=== PATIENT | female | born 1995 | race Caucasian/White ===

== ENCOUNTER → 2016-03-12 | Outpatient (CLI) | payer OTHER ==
--- NOTE | 2016-03-12 12:29 | US ---
EXAMINATION TYPE: US kidneys/renal and bladder DATE OF EXAM: 03/12/2016 11:18 AM COMPARISON: None CLINICAL HISTORY: 20-year-old female Hypertrophy of kidney. Patient states history of back pain that has now resolved. TECHNIQUE: Multiple sonographic images of the kidneys and bladder were obtained. FINDINGS: TECHNOLOGIST NOTES: Patient very gassy EXAM MEASUREMENTS: Right Kidney: 10.0 x 4.8 x 4.9 cm Left Kidney: 11.7 x 5.7 x 5.0 cm The lower pole of both kidneys is obscured by all gas shadowing. There is no hydronephrosis seen on e ither side. Incidentally, there is echogenic appearance to the liver. No gross abnormality of the urine distended bladder. Neither ureteral jet is visualized during the co urse of the exam. IMPRESSION: 1. Renal measurements as above, fall within normal limits. 2. No hydronephrosis. 3. Incidental hepatic steatosis. Correlate with LFTs, lipid profile, and patient risk factors.
== END | disposition home or self-care (01) ==
LOC: RADUSWWP 11:00
PROVIDERS: ATTEND Pediatrics Adolescent Medicine
DX: N28.81 Hypertrophy of kidney (principal)
CPT/HCPCS: 76770

== ENCOUNTER 2016-05-11 20:26 | Emergency (ER) | payer OTHER ==
[2016-05-11 20:46] VITALS: BP 139/80; RESP 18
[2016-05-11] MEDS ORDERED: IBUPROFEN 400 MG TAB PO STA (21:15)
--- NOTE | 2016-05-11 21:20 | ED ---
Lower Extremity Injury HPI - General Chief Complaint: Extremity Injury, Lower Stated Complaint: left foot injury Time Seen by Provider: 05/11/16 21:10 Source: patient Mode of arrival: wheelchair Limitations: no limitations - History of Present Illness Initial Comments: This patient is a 20-year-old woman with history of osteogenesis and also left foot drop, who complains that as she was walking today she rolled her right ankle and experienced pain to the lateral aspect of her left foot. The patient states that when the pain did not resolve they decided to be evaluated here. She has reportedly broken over 20 bones. The patient denies loss sensation or motor function. States the pain is moderate, worse with attempting to bear weight. She indicates the lateral aspect of her left foot. No other injuries today MD Complaint: foot injury -: hour(s) Injury: Foot: Right Type of Injury: inversion Place: home Severity: moderate Improves With: nothing Worsens With: weight bearing Context: walking Associated Symptoms: swelling, able to partially bear weight - Related Data Home Medications Medication Instructions Recorded Confirmed Albuterol Inhaler [Ventolin Hfa 2 puff INHALATION RT-Q4H PRN 02/19/16 05/11/16 Inhaler] Albuterol Nebulized [Ventolin 2.5 mg INHALATION RT-QID PRN 02/19/16 05/11/16 Nebulized] Aspirin 81 mg PO DAILY 02/19/16 05/11/16 Docusate [Colace] 100 mg PO BID 02/19/16 05/11/16 Fluticasone Nasal [place] [Flonase 1 spray EA NOSTRIL BID 02/19/16 05/11/16 Nasal [place]] Gabapentin [Neurontin] 300 mg PO BID 02/19/16 05/11/16 Insulin Glulisine [Apidra Solostar] See Protocol SQ AC-TID 02/19/16 05/11/16 Ipratropium Nebulized [Atrovent 0.5 mg INHALATION RT-QID PRN 02/19/16 05/11/16 Nebulized] LORazepam [Ativan] 1 mg PO TID PRN 02/19/16 05/11/16 Lacosamide [Vimpat] 200 mg PO BID 02/19/16 05/11/16 Loratadine [Claritin] 10 mg PO DAILY 02/19/16 05/11/16 Methylphenidate HCl [Concerta] 54 mg PO DAILY 02/19/16 05/11/16 Norelgestromin/Ethin.estradiol 1 patch TRANSDERM TH 02/19/16 05/11/16 [Xulane Patch] Omeprazole [PriLOSEC] 20 mg PO AC-BRKFST 02/19/16 05/11/16 Polyethylene Glycol 3350 [Miralax] 17 gm PO BID PRN 02/19/16 05/11/16 clonazePAM [Clonazepam] 2 mg PO DAILY PRN 02/19/16 05/11/16 lamoTRIgine [LaMICtal] 150 mg PO BID 02/19/16 05/11/16 Ipratropium [place] [Atrovent Hfa] 2 puff INHALATION RT-QID 05/11/16 05/11/16 Levothyroxine Sodium [Synthroid] 175 mcg PO DAILY 05/11/16 05/11/16 risperiDONE [RisperDAL] 2 mg PO BID 05/11/16 05/11/16 Previous Rx's Medication Instructions Recorded Ibuprofen [Motrin] 800 mg PO Q8HR PRN #20 tab 05/11/16 traMADol HCl [Ultram] 50 mg PO Q6H PRN #20 tab 05/11/16 Allergies Allergy/AdvReac Type Severity Reaction Status Date / Time cefuroxime Allergy Unknown Verified 05/11/16 21:16 hydromorphone [From Dilaudid] Allergy Unknown Verified 05/11/16 21:16 latex Allergy Unknown Verified 05/11/16 21:16 levetiracetam [From Keppra] Allergy Unknown Verified 05/11/16 21:16 metoclopramide [From Reglan] Allergy Unknown Verified 05/11/16 21:16 nifedipine [From Procardia] Allergy Unknown Verified 05/11/16 21:16 pentamidine isethionate Allergy Unknown Verified 05/11/16 21:16 pregabalin [From Lyrica] Allergy Unknown Verified 05/11/16 21:16 Review of Systems ROS Statement: Those systems with pertinent positive or pertinent negative responses have been documented in the HPI. ROS Other: All systems not noted in ROS Statement are negative. Constitutional: Denies: fever, chills, weakness Musculoskeletal: Reports: as per HPI, joint swelling, arthralgia Skin: Denies: lesions Neurological: Denies: weakness, numbness, paresthesias Past Medical History Past Medical History: Asthma, Diabetes Mellitus, Seizure Disorder, Thyroid Disorder Additional Past Medical History / Comment(s): glioblastomamultiform stage 4 History of Any Multi-Drug Resistant Organisms: None Reported Past Surgical History: Adenoidectomy, Appendectomy, Tonsillectomy Additional Past Surgical History / Comment(s): craniotomy, brovaic Past Psychological History: No Psychological Hx Reported Smoking Status: Never smoker Past Alcohol Use History: None Reported Past Drug Use History: None Reported General Exam Limitations: no limitations General appearance: alert, in no apparent distress, obese Cardiovascular Exam: Present: other (Pedal pulses normal. Capillary refill normal.) Extremities exam: Present: tenderness, normal capillary refill, other (There is tenderness and a small amount of swelling over the lateral aspect of the left foot, particularly the fifth metatarsal. No palpable deformity.) Neurological exam: Present: alert. Absent: motor sensory deficit Skin exam: Present: warm, dry, intact, normal color. Absent: rash Course Vital Signs 05/11/16 05/11/16 20:40 22:45 Temperature 100.6 F H 98.5 F Pulse Rate 90 89 Respiratory 18 18 Rate Blood Pressure 139/80 O2 Sat by Pulse 98 99 Oximetry Procedures - Orthopedic Splinting/Casting Injury #1 Side: left Lower Extremity Injury Location: foot Lower Extremity Immobilizer: posterior splint Medical Decision Making - Lab Data Lab Results 05/11/16 Range/Units 20:40 Urine HCG, Qual Not Detected (Not Detectd) Disposition Clinical Impression: Fracture of fifth metatarsal bone Disposition: HOME SELF-CARE Condition: Fair Instructions: Foot Fracture in Adults (ED) Prescriptions: Ibuprofen [Motrin] 800 mg PO Q8HR PRN #20 tab PRN Reason: Pain traMADol HCl [Ultram] 50 mg PO Q6H PRN #20 tab PRN Reason: Pain Referrals: Raysa Landrum MD [Primary Care Provider] - 1-2 days Willi Watts MD [STAFF PHYSICIAN] - 1-2 days
--- NOTE | 2016-05-11 21:47 | XR ---
EXAMINATION TYPE: XR foot complete LT DATE OF EXAM: 05/11/2016 9:40 PM COMPARISON: NONE HISTORY: Foot pain TECHNIQUE: 3 views FINDINGS: There is evidence of nondisplaced transverse fracture of the head of the fifth metatarsal. There is no dislocation. IMPRESSION: Nondisplaced fracture distal fifth metatarsal.
[2016-05-11 22:46] VITALS: PULSE 89; TEMP 98.5
== END 2016-05-11 22:46 | disposition home or self-care (01) ==
LOC: EC 20:26
DX: S92.355A Nondisplaced fracture of fifth metatarsal bone, left foot, initial encounter for closed fracture (principal); J45.909 Unspecified asthma, uncomplicated; E11.9 Type 2 diabetes mellitus without complications; G40.909 Epilepsy, unspecified, not intractable, without status epilepticus; E07.9 Disorder of thyroid, unspecified; Z79.82 Long term (current) use of aspirin; Z79.4 Long term (current) use of insulin; Z79.899 Other long term (current) drug therapy; Z88.8 Allergy status to other drugs, medicaments and biological substances; Z88.5 Allergy status to narcotic agent; Z91.040 Latex allergy status; Z88.1 Allergy status to other antibiotic agents; X58.XXXA Exposure to other specified factors, initial encounter; Y93.01 Activity, walking, marching and hiking
CPT/HCPCS: 29515; 81025; 99283

== ENCOUNTER 2016-05-23 23:01 | Emergency (ER) | payer OTHER ==
[2016-05-23] MEDS ORDERED: IBUPROFEN 400 MG TAB PO STA (23:39)
--- NOTE | 2016-05-24 00:13 | XR ---
EXAM: XR Left Shoulder Complete, 2 or More Views. CLINICAL HISTORY: Reason: trauma TECHNIQUE: Two or more views of the left shoulder. COMPARISON: No relevant prior studies available. FINDINGS: Bones/joints: Unremarkable. No acute fracture. No dislocation. Soft tissues: Unremarkable. IMPRESSION: No acute abnormality
--- NOTE | 2016-05-24 01:01 | ED ---
Upper Extremity HPI - General Chief Complaint: Extremity Injury, Upper Stated Complaint: poss collar bone injury Time Seen by Provider: 05/23/16 23:16 Source: patient, family Mode of arrival: ambulatory Limitations: no limitations - History of Present Illness Initial Comments: This patient is a 20-year-old woman with history of osteogenesis imperfecta imperfecta, who presents with pain to her left shoulder after she had a trip and fall injury earlier. The patient does not have any obvious deformity, but states she is still having pain despite trying some ice. Pain is constant, aching, moderate and worse with moving the left arm, better with remaining still. No other injuries in the fall MD Complaint: Injury to:: left -: hour(s) Other Extremity Injury: Shoulder: Left Other Injuries: none Handedness: right Place: home Improves With: none Worsens With: movement of extremity Context: fall Associated Symptoms: denies other symptoms - Related Data Home Medications Medication Instructions Recorded Confirmed Albuterol Inhaler [Ventolin Hfa 2 puff INHALATION RT-Q4H PRN 02/19/16 05/23/16 Inhaler] Albuterol Nebulized [Ventolin 2.5 mg INHALATION RT-QID PRN 02/19/16 05/23/16 Nebulized] Aspirin 81 mg PO DAILY 02/19/16 05/23/16 Docusate [Colace] 100 mg PO BID 02/19/16 05/23/16 Fluticasone Nasal [place] [Flonase 1 spray EA NOSTRIL BID 02/19/16 05/23/16 Nasal [place]] Gabapentin [Neurontin] 300 mg PO BID 02/19/16 05/23/16 Insulin Glulisine [Apidra Solostar] See Protocol SQ AC-TID 02/19/16 05/23/16 Ipratropium Nebulized [Atrovent 0.5 mg INHALATION RT-QID PRN 02/19/16 05/23/16 Nebulized] LORazepam [Ativan] 1 mg PO TID PRN 02/19/16 05/23/16 Lacosamide [Vimpat] 200 mg PO BID 02/19/16 05/23/16 Loratadine [Claritin] 10 mg PO DAILY 02/19/16 05/23/16 Methylphenidate HCl [Concerta] 54 mg PO DAILY 02/19/16 05/23/16 Norelgestromin/Ethin.estradiol 1 patch TRANSDERM TH 02/19/16 05/23/16 [Xulane Patch] Omeprazole [PriLOSEC] 20 mg PO AC-BRKFST 02/19/16 05/23/16 Polyethylene Glycol 3350 [Miralax] 17 gm PO BID PRN 02/19/16 05/23/16 clonazePAM [Clonazepam] 2 mg PO DAILY PRN 02/19/16 05/23/16 lamoTRIgine [LaMICtal] 150 mg PO BID 02/19/16 05/23/16 Ipratropium [place] [Atrovent Hfa] 2 puff INHALATION RT-QID 05/11/16 05/23/16 Levothyroxine Sodium [Synthroid] 175 mcg PO DAILY 05/11/16 05/23/16 risperiDONE [RisperDAL] 2 mg PO BID 05/11/16 05/23/16 Previous Rx's Medication Instructions Recorded Ibuprofen [Motrin] 800 mg PO Q8HR PRN #20 tab 05/11/16 traMADol HCl [Ultram] 50 mg PO Q6H PRN #20 tab 05/11/16 Allergies Allergy/AdvReac Type Severity Reaction Status Date / Time cefuroxime Allergy Unknown Verified 05/23/16 23:09 hydromorphone [From Dilaudid] Allergy Unknown Verified 05/23/16 23:09 latex Allergy Unknown Verified 05/23/16 23:09 levetiracetam [From Keppra] Allergy Unknown Verified 05/23/16 23:09 metoclopramide [From Reglan] Allergy Unknown Verified 05/23/16 23:09 nifedipine [From Procardia] Allergy Unknown Verified 05/23/16 23:09 pentamidine isethionate Allergy Unknown Verified 05/23/16 23:09 pregabalin [From Lyrica] Allergy Unknown Verified 05/23/16 23:09 Review of Systems ROS Statement: Those systems with pertinent positive or pertinent negative responses have been documented in the HPI. ROS Other: All systems not noted in ROS Statement are negative. Constitutional: Denies: weakness Respiratory: Denies: cough, dyspnea Cardiovascular: Denies: chest pain Gastrointestinal: Denies: abdominal pain Musculoskeletal: Reports: as per HPI, joint swelling. Denies: back pain Skin: Denies: lesions Neurological: Denies: headache, weakness, numbness Past Medical History Past Medical History: Asthma, Diabetes Mellitus, Seizure Disorder, Thyroid Disorder Additional Past Medical History / Comment(s): glioblastomamultiform stage 4 History of Any Multi-Drug Resistant Organisms: None Reported Past Surgical History: Adenoidectomy, Appendectomy, Tonsillectomy Additional Past Surgical History / Comment(s): craniotomy, brovaic Past Psychological History: No Psychological Hx Reported Smoking Status: Never smoker Past Alcohol Use History: None Reported Past Drug Use History: None Reported General Exam Limitations: no limitations General appearance: alert, in no apparent distress Head exam: Present: atraumatic, normocephalic Neck exam: Present: normal inspection, full ROM. Absent: tenderness Respiratory exam: Present: normal lung sounds bilaterally. Absent: respiratory distress, wheezes, rales, rhonchi Cardiovascular Exam: Present: regular rate, normal rhythm, normal heart sounds, other ((O pulse is normal and strength good capillary refill) Extremities exam: Present: normal inspection, full ROM, tenderness (Tenderness over the distal left clavicle no obvious deformity, no swelling.), normal capillary refill Back exam: Absent: CVA tenderness (R), CVA tenderness (L), vertebral tenderness Skin exam: Present: warm, dry, intact, normal color. Absent: rash Course Vital Signs 05/23/16 05/24/16 23:06 01:15 Temperature 97.6 F 97.4 F L Pulse Rate 78 92 Respiratory 20 18 Rate Blood Pressure 148/81 118/60 O2 Sat by Pulse 97 95 Oximetry Disposition Clinical Impression: Shoulder injury Disposition: HOME SELF-CARE Condition: Good Instructions: Shoulder Sprain (ED) Referrals: Raysa Landrum MD [Primary Care Provider] - 1-2 days
[2016-05-24 01:16] VITALS: BP 118/60; PULSE 92; RESP 18; TEMP 97.4
== END 2016-05-24 01:16 | disposition home or self-care (01) ==
LOC: EC 23:01
DX: S49.92XA Unspecified injury of left shoulder and upper arm, initial encounter (principal); W01.0XXA Fall on same level from slipping, tripping and stumbling without subsequent striking against object, initial encounter; Q78.0 Osteogenesis imperfecta; E11.9 Type 2 diabetes mellitus without complications; G40.909 Epilepsy, unspecified, not intractable, without status epilepticus; J45.909 Unspecified asthma, uncomplicated; E07.9 Disorder of thyroid, unspecified; Z79.82 Long term (current) use of aspirin; Z79.4 Long term (current) use of insulin; Z79.51 Long term (current) use of inhaled steroids; Z79.899 Other long term (current) drug therapy; Z88.1 Allergy status to other antibiotic agents; Z88.5 Allergy status to narcotic agent; Z88.8 Allergy status to other drugs, medicaments and biological substances; Z91.040 Latex allergy status
CPT/HCPCS: 99283

== ENCOUNTER 2016-07-11 23:45 | Emergency (ER) | payer OTHER ==
[2016-07-11 23:57] VITALS: BP 138/97; PULSE 65; RESP 18; TEMP 97.7
--- NOTE | 2016-07-12 00:58 | ED ---
General Adult HPI - General Chief complaint: Skin/Abscess/Foreign Body Stated complaint: ingrown toenail Time Seen by Provider: 07/12/16 00:03 Source: patient, family, RN notes reviewed, old records reviewed Mode of arrival: wheelchair Limitations: no limitations - History of Present Illness Initial comments: Chief complaint history of present illness a 21-year-old female who presents with a left great toe ingrown toenail. - Related Data Home Medications Medication Instructions Recorded Confirmed Albuterol Inhaler [Ventolin Hfa 2 puff INHALATION RT-Q4H PRN 02/19/16 07/11/16 Inhaler] Albuterol Nebulized [Ventolin 2.5 mg INHALATION RT-QID PRN 02/19/16 07/11/16 Nebulized] Aspirin 81 mg PO DAILY 02/19/16 07/11/16 Docusate [Colace] 100 mg PO BID 02/19/16 07/11/16 Fluticasone Nasal [place] [Flonase 1 spray EA NOSTRIL BID 02/19/16 07/11/16 Nasal [place]] Gabapentin [Neurontin] 300 mg PO BID 02/19/16 07/11/16 Insulin Glulisine [Apidra Solostar] See Protocol SQ AC-TID 02/19/16 07/11/16 Ipratropium Nebulized [Atrovent 0.5 mg INHALATION RT-QID PRN 02/19/16 07/11/16 Nebulized] LORazepam [Ativan] 1 mg PO TID PRN 02/19/16 07/11/16 Lacosamide [Vimpat] 200 mg PO BID 02/19/16 07/11/16 Loratadine [Claritin] 10 mg PO DAILY 02/19/16 07/11/16 Methylphenidate HCl [Concerta] 54 mg PO DAILY 02/19/16 07/11/16 Norelgestromin/Ethin.estradiol 1 patch TRANSDERM TH 02/19/16 07/11/16 [Xulane Patch] Omeprazole [PriLOSEC] 20 mg PO AC-BRKFST 02/19/16 07/11/16 Polyethylene Glycol 3350 [Miralax] 17 gm PO BID PRN 02/19/16 07/11/16 clonazePAM [Clonazepam] 2 mg PO DAILY PRN 02/19/16 07/11/16 lamoTRIgine [LaMICtal] 150 mg PO BID 02/19/16 07/11/16 Ipratropium [place] [Atrovent Hfa] 2 puff INHALATION RT-QID 05/11/16 07/11/16 Levothyroxine Sodium [Synthroid] 175 mcg PO DAILY 05/11/16 07/11/16 risperiDONE [RisperDAL] 2 mg PO BID 05/11/16 07/11/16 Previous Rx's Medication Instructions Recorded Ibuprofen [Motrin] 800 mg PO Q8HR PRN #20 tab 05/11/16 traMADol HCl [Ultram] 50 mg PO Q6H PRN #20 tab 05/11/16 Allergies Allergy/AdvReac Type Severity Reaction Status Date / Time cefuroxime Allergy Unknown Verified 07/11/16 23:58 hydromorphone [From Dilaudid] Allergy Unknown Verified 07/11/16 23:58 latex Allergy Unknown Verified 07/11/16 23:58 levetiracetam [From Keppra] Allergy Unknown Verified 07/11/16 23:58 metoclopramide [From Reglan] Allergy Unknown Verified 07/11/16 23:58 nifedipine [From Procardia] Allergy Unknown Verified 07/11/16 23:58 pentamidine isethionate Allergy Unknown Verified 07/11/16 23:58 pregabalin [From Lyrica] Allergy Unknown Verified 07/11/16 23:58 Review of Systems ROS Statement: Those systems with pertinent positive or pertinent negative responses have been documented in the HPI. Review of systems her only complaint is a painful ingrown toenail. 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 She suffers from diabetes mellitus, seizure disorder hypothyroidism and asthma. Surgeries include 2 craniotomies, tonsils and adenoids and appendectomy. Family history rheumatoid. Patient's ALLERGIES are listed on the nurse's chart. ROS Other: All systems not noted in ROS Statement are negative. 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 Past Psychological History: No Psychological Hx Reported Smoking Status: Never smoker Past Alcohol Use History: None Reported Past Drug Use History: None Reported General Exam - General Exam Comments Initial Comments: General: The patient is awake and alert, patient is complaining of a painful swollen ingrown toenail left great toe. Vital signs temp 97.7 pulse 65 respiratory rate 18 pulse ox eye for percent on room air. Blood pressure 138/97 Musculoskeletal: The patient has a painful left great toe ingrown toenail. Neurological: Neurologically the patient's unchanged over previous visits. Due to the 2 craniotomies in the brain cancer patient has seizure disorder etc. but otherwise answer questions appropriately there are no changes per mother. Limitations: no limitations Course Vital Signs 07/11/16 23:53 Temperature 97.7 F Pulse Rate 65 Respiratory 18 Rate Blood Pressure 138/97 O2 Sat by Pulse 94 L Oximetry Procedures - Procedures Initial comment: Procedure; digital block of left great toe was done after being cleansed well. Then a small wedge of the ingrown toenail was removed with good effect hemostasis obtained bacitracin applied bandage applied. Disposition Clinical Impression: Ingrown left big toenail Disposition: HOME SELF-CARE Condition: Fair Instructions: Ingrown Nail (ED) Additional Instructions: Clean daily, apply bacitracin provided. Use Tylenol or ibuprofen for pain. Keep elevated. Report any signs of infection. Referrals: Raysa Landrum MD [Primary Care Provider] - 1-2 days Time of Disposition: 00:58
== END 2016-07-12 01:04 | disposition home or self-care (01) ==
LOC: EC 23:45
DX: L60.0 Ingrowing nail (principal); E07.9 Disorder of thyroid, unspecified; E11.9 Type 2 diabetes mellitus without complications; J45.909 Unspecified asthma, uncomplicated; G40.909 Epilepsy, unspecified, not intractable, without status epilepticus; Z85.841 Personal history of malignant neoplasm of brain; Z88.8 Allergy status to other drugs, medicaments and biological substances; Z88.5 Allergy status to narcotic agent; Z91.040 Latex allergy status; Z79.82 Long term (current) use of aspirin; Z79.51 Long term (current) use of inhaled steroids; Z79.899 Other long term (current) drug therapy
CPT/HCPCS: 11765; 99283

== ENCOUNTER 2016-08-17 19:07 | Emergency (ER) | payer OTHER ==
[2016-08-17 19:33] LABS: Glucose,Whole Blood 110 mg/dL (75-99)
--- NOTE | 2016-08-17 20:03 | ED ---
Fall HPI - General Chief Complaint: Fall Stated Complaint: fall, arm pain Time Seen by Provider: 08/17/16 19:35 Source: patient Mode of arrival: ambulatory - History of Present Illness Initial Comments: This patient is a 21-year-old woman who states she has history of dysautonomia, who presents after she had a fall landing on outstretched left arm. The patient had been in the process of getting a chair across the kitchen floor to attempt to reach up and get something. She noted she was feeling a little funny and then fell over. She denies history of frequent falls related to intermittent blood pressure issues. Patient denies any other injury. MD Complaint: fall Onset/Timin -: hour(s) Fall From: standing When Fall Occurred: 1 hour [employer] Fall Witnessed: yes, by family Place Fall Occurred: home Loss of Consciousness: none Prolonged Down Time?: no Symptoms Prior to Fall: lightheadedness Location - Extremities: Left: Arm Severity: moderate Context: history of frequent falls Associated Symptoms: denies - Related Data Home Medications Medication Instructions Recorded Confirmed Albuterol Inhaler [Ventolin Hfa 2 puff INHALATION RT-Q4H PRN 02/19/16 08/17/16 Inhaler] Albuterol Nebulized [Ventolin 2.5 mg INHALATION RT-QID PRN 02/19/16 08/17/16 Nebulized] Docusate [Colace] 100 mg PO BID 02/19/16 08/17/16 Fluticasone Nasal [place] [Flonase 1 spray EA NOSTRIL BID 02/19/16 08/17/16 Nasal [place]] Gabapentin [Neurontin] 300 mg PO BID 02/19/16 08/17/16 Insulin Glulisine [Apidra Solostar] See Protocol SQ AC-TID 02/19/16 08/17/16 Ipratropium Nebulized [Atrovent 0.5 mg INHALATION RT-QID PRN 02/19/16 08/17/16 Nebulized] LORazepam [Ativan] 1 mg PO TID PRN 02/19/16 08/17/16 Lacosamide [Vimpat] 200 mg PO BID 02/19/16 08/17/16 Loratadine [Claritin] 10 mg PO DAILY 02/19/16 08/17/16 Methylphenidate HCl [Concerta] 54 mg PO DAILY 02/19/16 08/17/16 Norelgestromin/Ethin.estradiol 1 patch TRANSDERM MOELLER 02/19/16 08/17/16 [Xulane Patch] Omeprazole [PriLOSEC] 20 mg PO HS 02/19/16 08/17/16 Polyethylene Glycol 3350 [Miralax] 17 gm PO BID PRN 02/19/16 08/17/16 clonazePAM [Clonazepam] 2 mg PO DAILY PRN 02/19/16 08/17/16 lamoTRIgine [LaMICtal] 150 mg PO BID 02/19/16 08/17/16 Ipratropium [place] [Atrovent Hfa] 2 puff INHALATION RT-QID PRN 05/11/16 Levothyroxine Sodium [Synthroid] 175 mcg PO DAILY 05/11/16 08/17/16 risperiDONE [RisperDAL] 2 mg PO BID 05/11/16 08/17/16 Aspirin EC [Ecotrin Low Dose] 81 mg PO DAILY 08/17/16 08/17/16 Insulin Glargine,Hum.rec.anlog 27 unit SQ HS 08/17/16 08/17/16 [Lantus Solostar] Somatropin [Norditropin Flexpro] 0.7 mg SQ HS 08/17/16 08/17/16 Previous Rx's Medication Instructions Recorded Ibuprofen [Motrin] 800 mg PO Q8HR PRN #20 tab 05/11/16 traMADol HCl [Ultram] 50 mg PO Q6H PRN #20 tab 05/11/16 Allergies Allergy/AdvReac Type Severity Reaction Status Date / Time cefuroxime Allergy Rash/Hives Verified 08/17/16 19:52 latex Allergy Swelling Verified 08/17/16 19:52 nifedipine [From Procardia] Allergy Unknown Verified 08/17/16 19:18 hydromorphone [From Dilaudid] AdvReac Chest Pain Verified 08/17/16 19:52 levetiracetam [From Keppra] AdvReac Toxic Verified 08/17/16 19:52 Levels metoclopramide [From Reglan] AdvReac [place] Verified 08/17/16 19:52 Seizure pentamidine isethionate AdvReac Severe Pain Verified 08/17/16 19:52 pregabalin [From Lyrica] AdvReac Altered Verified 08/17/16 19:52 Mental Status Review of Systems ROS Statement: Those systems with pertinent positive or pertinent negative responses have been documented in the HPI. ROS Other: All systems not noted in ROS Statement are negative. Constitutional: Denies: fever, chills, weakness Eyes: Denies: vision change Respiratory: Denies: cough, dyspnea Cardiovascular: Denies: chest pain, orthopnea, edema Gastrointestinal: Denies: abdominal pain, vomiting, diarrhea Genitourinary: Denies: dysuria, hematuria Musculoskeletal: Reports: as per HPI, arthralgia (Wrist). 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 Past Psychological History: No Psychological Hx Reported Smoking Status: Never smoker Past Alcohol Use History: None Reported Past Drug Use History: None Reported General Exam Limitations: no limitations General appearance: alert, in no apparent distress Head exam: Present: atraumatic, normocephalic Eye exam: Present: normal appearance. Absent: scleral icterus, conjunctival injection Respiratory exam: Present: normal lung sounds bilaterally. Absent: respiratory distress, wheezes, rales, rhonchi, stridor, chest wall tenderness Cardiovascular Exam: Present: regular rate, normal rhythm, normal heart sounds. Absent: systolic murmur, diastolic murmur, rubs, gallop GI/Abdominal exam: Present: soft. Absent: tenderness, guarding, rebound Extremities exam: Present: normal inspection, full ROM, tenderness (Left wrist) , normal capillary refill. Absent: joint swelling Back exam: Present: normal inspection. Absent: CVA tenderness (R), CVA tenderness (L) Neurological exam: Present: alert, oriented X3. Absent: motor sensory deficit Skin exam: Present: warm, dry, intact, normal color. Absent: rash Course Vital Signs 08/17/16 19:15 Temperature 97.8 F Pulse Rate 100 Respiratory 18 Rate Blood Pressure 138/95 O2 Sat by Pulse 97 Oximetry Medical Decision Making - Lab Data Result diagrams: 08/17/16 20:12 08/17/16 20:12 Lab Results 08/17/16 08/17/16 08/17/16 Range/Units 19:29 20:12 20:12 WBC 7.4 (3.8-10.6) k/uL RBC 3.80 (3.80-5.40) m/uL Hgb 11.4 (11.4-16.0) gm/dL Hct 34.5 (34.0-46.0) % MCV 90.7 (80.0-100.0) fL MCH 30.0 (25.0-35.0) pg MCHC 33.0 (31.0-37.0) g/dL RDW 13.3 (11.5-15.5) % Plt Count 229 (150-450) k/uL Neutrophils % 45 % Lymphocytes % 47 % Monocytes % 4 % Eosinophils % 1 % Basophils % 0 % Neutrophils # 3.3 (1.3-7.7) k/uL Lymphocytes # 3.4 (1.0-4.8) k/uL Monocytes # 0.3 (0-1.0) k/uL Eosinophils # 0.1 (0-0.7) k/uL Basophils # 0.0 (0-0.2) k/uL Sodium 140 (137-145) mmol/L Potassium 4.1 (3.5-5.1) mmol/L Chloride 103 (98-107) mmol/L Carbon Dioxide 27 (22-30) mmol/L Anion Gap 10 mmol/L BUN 14 (7-17) mg/dL Creatinine 0.78 (0.52-1.04) mg/dL Est GFR (MDRD) Af Amer >60 (>60 ml/min/1.73 sqM) Est GFR (MDRD) Non-Af >60 (>60 ml/min/1.73 sqM) Glucose 103 H (74-99) mg/dL POC Glucose (mg/dL) 110 H (75-99) mg/dL POC Glu Director [employer] ID Kulman, Valeriano Calcium 9.6 (8.4-10.2) mg/dL - EKG Data -: EKG Interpreted by Me EKG shows normal: sinus rhythm, axis (Normal), intervals (Normal), QRS complexes (Normal), ST-T waves (Normal) Rate: tachycardia (Rate 102 BPM) Disposition Clinical Impression: Fall, Wrist injury Disposition: HOME SELF-CARE Condition: Fair Instructions: Wrist Injury (ED), Wrist Sprain (ED) Referrals: Raysa Landrum MD [Primary Care Provider] - 1-2 days
[2016-08-17 20:24] LABS: Basophils % (A) 0 %; CH 30.1; CHCM 33.3; Eosinophils # (A) 0.1 k/uL (0-0.7); Eosinophils % (A) 1 %; HCT 34.5 % (34.0-46.0); HDW 2.53; HGB 11.4 gm/dL (11.4-16.0); Luc # (Auto) 0.18; Luc % (Auto) 3; Lymphocytes # (A) 3.4 k/uL (1.0-4.8); Lymphocytes % (A) 47 %; MCV 90.7 fL (80.0-100.0); Mean Platelet Volume 7.5; Monocytes # (A) 0.3 k/uL (0-1.0); Monocytes % (A) 4 %; Neutrophils # (A) 3.3 k/uL (1.3-7.7); Neutrophils % (A) 45 %; RDW 13.3 % (11.5-15.5); WBC 7.4 k/uL (3.8-10.6); WBC (Perox) 7.59
[2016-08-17] MEDS ORDERED: LORazepam 2 MG/ML SYRINGE IV STA (20:31)
--- NOTE | 2016-08-17 20:31 | XR ---
EXAMINATION TYPE: XR wrist complete LT DATE OF EXAM: 08/17/2016 COMPARISON: NONE HISTORY: Wrist pain TECHNIQUE: 4 views FINDINGS: I see no fracture nor dislocation. Joint spaces are normal. There are no erosions. There is a developmentally short ulna. IMPRESSION: No acute abnormality of the left wrist.
[2016-08-17 20:33] LABS: Anion Gap 10 mmol/L; Blood Urea Nitrogen 14 mg/dL (7-17); Calcium 9.6 mg/dL (8.4-10.2); Carbon Dioxide 27 mmol/L (22-30); Chloride 103 mmol/L (98-107); Glucose 103 mg/dL (74-99); Non-African American GFR(MDRD) >60 (>60 ml/min/1.73 sqM); Potassium 4.1 mmol/L (3.5-5.1); Sodium 140 mmol/L (137-145)
[2016-08-17 22:20] VITALS: BP 125/62; PULSE 87; RESP 16; TEMP 97.7
== END 2016-08-17 22:20 | disposition home or self-care (01) ==
LOC: EC 19:07
DX: S69.92XA Unspecified injury of left wrist, hand and finger(s), initial encounter (principal); R00.0 Tachycardia, unspecified; E11.9 Type 2 diabetes mellitus without complications; E07.9 Disorder of thyroid, unspecified; J45.909 Unspecified asthma, uncomplicated; G40.909 Epilepsy, unspecified, not intractable, without status epilepticus; Z91.040 Latex allergy status; Z88.8 Allergy status to other drugs, medicaments and biological substances; Z88.5 Allergy status to narcotic agent; Z79.51 Long term (current) use of inhaled steroids; Z79.82 Long term (current) use of aspirin; Z79.4 Long term (current) use of insulin; Z79.899 Other long term (current) drug therapy; W07.XXXA Fall from chair, initial encounter; Y92.090 Kitchen in other non-institutional residence as the place of occurrence of the external cause
CPT/HCPCS: 99283; 96374; 36415; 93005; 80048; 85025; 73110; J2060

== ENCOUNTER → 2016-10-12 | Outpatient (CLI) | payer OTHER ==
--- NOTE | 2016-10-12 15:40 | US ---
EXAMINATION TYPE: US kidneys/renal and bladder DATE OF EXAM: 10/12/2016 COMPARISON: NONE CLINICAL HISTORY: Low Back Pain M54.5, N39.0 Urinary tract infection. Left back pain, patient has ext ensive h/o of glioblastoma at 5yrs old, cystic fibrosis, and multiple other medical conditions. EXAM MEASUREMENTS: Right Kidney: 9.4 x 4.8 x 4.2 cm Left Kidney: 10.0 x 4.6 x 5.6cm Right Kidney: difficult to penetrate due to bowel gas and habitus, appears wnl Left Kidney: limited views due to ribcage and bowel gas, appears wnl Bladder: wnl Bilateral Jets seen: rt jet IMPRESSION: 1. Visualized retroperitoneal ultrasound is unremarkable. 2. Left ureteral jet was not identified during this exam. 3. There is some limitation due to bowel gas and osseous obstruction of visualization.
--- NOTE | 2016-10-12 16:37 | XR ---
Lumbosacral spine HISTORY: Low back pain, M 54.5 5 views of the lumbosacral spine correlated to prior lumbar spine 01/02/2011 Lumbar vertebral bodies show stable height, alignment, and bone mineralization. No evident spondyloly sis. Disc spaces are stable. Sclerosis in the posterior elements compatible with facet arthropathy. IMPRESSION: No acute abnormality. Consider lumbar MRI
--- NOTE | 2016-10-12 16:39 | XR ---
Abdomen HISTORY: Dysuria View of the abdomen on 2 images No comparisons There is a questionable calcification in the right upper quadrant, findings may be gallstone. Retaine d fecal debris present throughout the distribution of the colon. There is no pneumoperitoneum or los l obstruction. IMPRESSION: Indeterminate calcification right upper quadrant.
== END | disposition home or self-care (01) ==
LOC: EEVIPCON 13:49 → RADUSWWP 13:49
PROVIDERS: ATTEND Pediatrics Adolescent Medicine
DX: N39.0 Urinary tract infection, site not specified (principal); M54.5 Low back pain; R30.0 Dysuria
CPT/HCPCS: 72110; 74000; 76770

== ENCOUNTER 2016-11-05 05:59 | Day surgery (SDC) | payer OTHER ==
[2016-11-03 17:39] VITALS: BMI 36.0
[~2016-11-05 05:59] MED LIST: CLINDAMYCIN 900 MG in DEXTROSE 5% IN WATER 50 ML IVPB ONE; HEPARIN SODIUM,PORCINE 5,000 UNIT/ML 1 ML VIAL SQ ONE
[2016-11-05] MEDS ORDERED: ONDANSETRON 4 MG/2 ML VIAL IVP ONE (06:02)
[2016-11-05] MEDS ORDERED: LACTATED RINGERS 1,000 ML IV SCH (06:02)
[2016-11-05] MEDS ORDERED: fentaNYL (PF) 50 MCG/ML 20 ML VIAL IVP PRN (06:02)
[2016-11-05] MEDS ORDERED: DEXAMETHASONE SOD PHOSPHATE 10 MG/ML 1 ML VIAL IV ONE (06:02)
[2016-11-05] MEDS ORDERED: LIDOCAINE 1% 20 ML VIAL (10MG/ML) FOR IV START INTRADERMA PRN (06:02)
[2016-11-05] MEDS ORDERED: LIDOCAINE 1% 20 ML VIAL (10MG/ML) FOR IV START INTRADERMA ONE (06:43)
[2016-11-05 07:02] LABS: Glucose,Whole Blood 135 mg/dL (75-99)
--- NOTE | 2016-11-05 07:50 | P.GSHP ---
History of Present Illness H&P Date: 11/05/16 Chief Complaint: Right upper quadrant pain This 21-year-old female who's had complaints of right upper quadrant pain. Her recent HIDA scan shows abnormal ejection fraction consistent with biliary dyskinesia and chronic cholecystitis. 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 Past Anesthesia/Blood Transfusion Reactions: Postoperative Nausea & Vomiting ( PONV) Smoking Status: Never smoker - Past Family History Mother Family Medical History: No Reported History Medications and Allergies Home Medications Medication Instructions Recorded Confirmed Type Albuterol Inhaler [Ventolin Hfa 2 puff INHALATION RT-Q4H PRN 02/19/16 11/05/16 History Inhaler] Albuterol Nebulized [Ventolin 2.5 mg INHALATION RT-QID PRN 02/19/16 11/05/16 History Nebulized] Docusate [Colace] 100 mg PO BID 02/19/16 11/05/16 History Fluticasone Nasal [place] [Flonase 1 spray EA NOSTRIL BID 02/19/16 11/05/16 History Nasal [place]] Insulin Glulisine [Apidra Solostar] See Protocol SQ AC-TID 02/19/16 11/05/16 History Ipratropium Nebulized [Atrovent 0.5 mg INHALATION RT-QID PRN 02/19/16 11/05/16 History Nebulized] LORazepam [Ativan] 1 mg PO TID PRN 02/19/16 11/05/16 History Lacosamide [Vimpat] 200 mg PO BID 02/19/16 11/05/16 History Loratadine [Claritin] 10 mg PO DAILY 02/19/16 11/05/16 History Methylphenidate HCl [Concerta] 54 mg PO DAILY 02/19/16 11/05/16 History Norelgestromin/Ethin.estradiol 1 patch TRANSDERM MOELLER 02/19/16 11/05/16 History [Xulane Patch] Omeprazole [PriLOSEC] 20 mg PO HS 02/19/16 11/05/16 History Polyethylene Glycol 3350 [Miralax] 17 gm PO BID PRN 02/19/16 11/05/16 History clonazePAM [Clonazepam] 2 mg PO DAILY PRN 02/19/16 11/05/16 History lamoTRIgine [LaMICtal] 175 mg PO BID 02/19/16 11/05/16 History Ibuprofen [Motrin] 800 mg PO Q8HR PRN #20 tab 05/11/16 11/05/16 Rx Ipratropium [place] [Atrovent Hfa] 2 puff INHALATION RT-QID PRN 05/11/16 History Levothyroxine Sodium [Synthroid] 175 mcg PO DAILY 05/11/16 11/05/16 History risperiDONE [RisperDAL] 2 mg PO BID 05/11/16 11/05/16 History traMADol HCl [Ultram] 50 mg PO Q6H PRN #20 tab 05/11/16 11/05/16 Rx Aspirin EC [Ecotrin Low Dose] 81 mg PO DAILY 08/17/16 11/05/16 History Insulin Glargine,Hum.rec.anlog 27 unit SQ HS 08/17/16 11/05/16 History [Lantus Solostar] Somatropin [Norditropin Flexpro] 0.7 mg SQ HS 08/17/16 11/05/16 History Allergies Allergy/AdvReac Type Severity Reaction Status Date / Time cefuroxime Allergy Rash/Hives Verified 11/05/16 06:20 latex Allergy Swelling Verified 11/05/16 06:20 nifedipine [From Procardia] Allergy Unknown Verified 11/05/16 06:20 gabapentin AdvReac altered Verified 11/05/16 06:20 mental status hydromorphone [From Dilaudid] AdvReac Chest Pain Verified 11/05/16 06:20 levetiracetam [From Keppra] AdvReac Toxic Verified 11/05/16 06:20 Levels metoclopramide [From Reglan] AdvReac [place] Verified 11/05/16 06:20 Seizure pentamidine isethionate AdvReac Severe Pain Verified 11/05/16 06:20 pregabalin [From Lyrica] AdvReac Altered Verified 11/05/16 06:20 Mental Status Surgical - Exam Vital Signs Temp Pulse Resp BP Pulse Ox 98.3 F 95 16 115/75 96 11/05/16 06:18 11/05/16 06:18 11/05/16 06:18 11/05/16 06:18 11/05/16 06:18 - General well developed, no distress - Eyes PERRL - ENT normal pinna - Neck no masses - Respiratory normal expansion - Cardiovascular Rhythm: regular - Abdomen Mild right upper quadrant pain Abdomen: soft Results - Labs Abnormal Lab Results - Last 24 Hours (Table) 11/05/16 Range/Units 06:39 POC Glucose (mg/dL) 135 H (75-99) mg/dL Assessment and Plan Plan: Right upper quadrant pain Chronic cystitis We'll perform laparoscopic cholecystectomy.
[2016-11-05] MEDS ORDERED: GLYCOPYRROLATE 0.2 MG/ML 2 ML VIAL ONE (07:52)
[2016-11-05] MEDS ORDERED: NEOSTIGMINE 1 MG/ML 10 ML VIAL ONE (07:52)
[2016-11-05] MEDS ORDERED: LIDOCAINE 1% INJ 10MG/ML (20 ML MDV) ONE (07:52)
[2016-11-05] MEDS ORDERED: MIDAZOLAM 2 MG/2 ML VIAL ONE (07:52)
[2016-11-05] MEDS ORDERED: fentaNYL (PF) 50 MCG/ML 2 ML AMP ONE (07:52)
[2016-11-05] MEDS ORDERED: ROCURONIUM BROMIDE 10 MG/ML 10 ML VIAL IV ONE (07:52)
[2016-11-05] MEDS ORDERED: ACETAMINOPHEN IV (For NPO) 1,000 MG/100 ML VIAL ONE (07:52)
[2016-11-05] MEDS ORDERED: PROPOFOL 10 MG/ML 20 ML VIAL IV ONE (07:52)
[2016-11-05] MEDS ORDERED: BUPIVACAINE (PF) 0.5% 30 ML VIAL SQ ONE (08:15)
--- NOTE | 2016-11-05 08:41 | P.OP ---
Date of Procedure: 11/05/16 Preoperative Diagnosis: Cholecystitis Postoperative Diagnosis: Chronic cholecystitis Procedure(s) Performed: Laparoscopic cholecystectomy Anesthesia: TIARRA Surgeon: Maximo Norris Estimated Blood Loss (ml): 5 Pathology: other (Gallbladder) Condition: stable Disposition: PACU Description of Procedure: The patient was placed on the operating table. The patient received a general endotracheal tube anesthesia. The patients abdomen was prepped and draped in the usual sterile fashion. Through an infraumbilical stab incision, the fascia of the anterior abdominal wall was grasped with a pair of Kochers and then the Veress needle was placed in the peritoneal cavity. Position of the Veress needle was confirmed with positive drop test. The abdomen was then insufflated. After adequate insufflation, the 10 mm trocar was placed in the peritoneal cavity. Following this the laparoscope was placed in the peritoneal cavity. The patient was placed in the head-up, right side up position and then a 5 mm trocar was placed in the right lateral and right subcostal position under direct visualization. A 8 mm trocar was placed in the epigastric position. The gallbladder was grasped in the fundus and infundibulum. Traction on the gallbladder was placed in the lateral and the cephalad positions. The triangle of Calot was visualized.. The cystic duct was bluntly dissected until the union of the cystic duct and common bile duct was seen. The cystic duct was then divided and sealed with the Harmonic scissors. A PDS Endoloop was then placed throughout the cystic duct stump. The cystic artery divided and sealed with the Harmonic scissors. The gallbladder was then removed from the liver bed using Harmonic scissors. The gallbladder was then extracted through the epigastric port site. Operative field was checked for any bleeding spots and Harmonic scissors was used to coagulate the liver bed. The abdomen was irrigated. The trocars were removed. The skin was closed using interrupted 3-0 Vicryl suture. Dermabond dressing were applied. The patient tolerated the procedure well.
[2016-11-05 09:03] VITALS: TEMP 98.4
[2016-11-05] MEDS ORDERED: MORPHINE SULFATE 4 MG/ML SYRINGE IVP ONE (09:09)
[2016-11-05 09:12] VITALS: RESP 16
[2016-11-05] MEDS ORDERED: HYDROcodone/APAP 7.5-325MG 1 EACH TAB PO ONE (10:13)
[2016-11-05 10:47] VITALS: BP 143/88; PULSE 66
== END 2016-11-05 11:12 | disposition home or self-care (01) ==
LOC: OR 05:59
PROVIDERS: ATTEND Surgery
DX: K81.1 Chronic cholecystitis (principal); J45.909 Unspecified asthma, uncomplicated; M79.7 Fibromyalgia; K21.9 Gastro-esophageal reflux disease without esophagitis; G40.909 Epilepsy, unspecified, not intractable, without status epilepticus; E07.9 Disorder of thyroid, unspecified; G81.94 Hemiplegia, unspecified affecting left nondominant side; G90.1 Familial dysautonomia [Riley-Day]; I73.00 Raynaud's syndrome without gangrene; H54.41 Blindness, right eye, normal vision left eye; H91.90 Unspecified hearing loss, unspecified ear; J84.10 Pulmonary fibrosis, unspecified; E11.40 Type 2 diabetes mellitus with diabetic neuropathy, unspecified; Z79.82 Long term (current) use of aspirin; Z79.3 Long term (current) use of hormonal contraceptives; Z79.4 Long term (current) use of insulin; Z79.899 Other long term (current) drug therapy; Z88.8 Allergy status to other drugs, medicaments and biological substances; Z88.1 Allergy status to other antibiotic agents; Z91.040 Latex allergy status
CPT/HCPCS: 81025; 88304; 47562; J2250; J2270; J1644; J1100; J2710; J2405; J2001; J3010; J0131; J2704

== ENCOUNTER 2017-05-25 21:39 | Emergency (ER) | payer OTHER ==
[2017-05-25] MEDS ORDERED: MAG HYDROX/AL HYDROX/SIMETH 30 ML, HYOSCYAMINE ELIXIR 10 ML, CIMETIDINE HCL 300 MG, LID... PO STA ×4 (21:53)
[2017-05-25] MEDS ORDERED: ONDANSETRON 4 MG/2 ML VIAL IVP STA (21:53)
[2017-05-25] MEDS ORDERED: FAMOTIDINE 20 MG/2 ML VIAL IV STA (21:53)
[2017-05-25] MEDS ORDERED: KETOROLAC 30 MG/ML 1 ML VIAL IVP STA (21:53)
--- NOTE | 2017-05-25 22:03 | ED ---
Chest Pain HPI - General Chief Complaint: Chest Pain Stated Complaint: chest & arm pain Time Seen by Provider: 05/25/17 21:45 Source: patient, family Mode of arrival: wheelchair Limitations: no limitations - History of Present Illness Initial Comments: Patient presents with sudden onset sharp shooting chest pain in the center of her chest that started 30 minutes ago while she was watching TV with her mother. Mom states patient has a history of glioblastoma, as TIAs as a result of her intracranial surgeries, has right frontal lobe removal with chronic left- sided weakness. Patient does take aspirin daily for history of TIAs. She has no cardiac history per mother. Patient denies history of acid reflux. Patient denies shortness of breath, although mom states patient appeared to have a hard time catching her breath when she first had the chest pain. Patient is a diabetic. Patient does take control patch, for hormone replacement. - Related Data Home Medications Medication Instructions Recorded Confirmed Albuterol Inhaler [Ventolin Hfa 2 puff INHALATION RT-Q4H PRN 02/19/16 05/25/17 Inhaler] Albuterol Nebulized [Ventolin 2.5 mg INHALATION RT-QID PRN 02/19/16 05/25/17 Nebulized] Docusate [Colace] 100 mg PO BID 02/19/16 05/25/17 Fluticasone Nasal [place] [Flonase 1 spray EA NOSTRIL BID 02/19/16 05/25/17 Nasal [place]] Insulin Glulisine [Apidra Solostar] See Protocol SQ AC-TID 02/19/16 05/25/17 Ipratropium Nebulized [Atrovent 0.5 mg INHALATION RT-QID PRN 02/19/16 05/25/17 Nebulized] LORazepam [Ativan] 1 mg PO TID PRN 02/19/16 05/25/17 Lacosamide [Vimpat] 200 mg PO BID 02/19/16 05/25/17 Loratadine [Claritin] 10 mg PO DAILY 02/19/16 05/25/17 Methylphenidate HCl [Concerta] 54 mg PO DAILY 02/19/16 05/25/17 Norelgestromin/Ethin.estradiol 1 patch TRANSDERM MOELLER 02/19/16 05/25/17 [Xulane Patch] Omeprazole [PriLOSEC] 20 mg PO HS 02/19/16 05/25/17 Polyethylene Glycol 3350 [Miralax] 17 gm PO BID PRN 02/19/16 05/25/17 clonazePAM [Clonazepam] 2 mg PO DAILY PRN 02/19/16 05/25/17 lamoTRIgine [LaMICtal] 175 mg PO BID 02/19/16 05/25/17 Ipratropium [place] [Atrovent Hfa] 2 puff INHALATION RT-QID PRN 05/11/16 Levothyroxine Sodium [Synthroid] 175 mcg PO DAILY 05/11/16 05/25/17 risperiDONE [RisperDAL] 2 mg PO BID 05/11/16 05/25/17 Aspirin EC [Ecotrin Low Dose] 81 mg PO DAILY 08/17/16 05/25/17 Insulin Glargine,Hum.rec.anlog 29 unit SQ HS 08/17/16 05/25/17 [Lantus Solostar] Somatropin [Norditropin Flexpro] 0.7 mg SQ HS 08/17/16 05/25/17 Previous Rx's Medication Instructions Recorded Ibuprofen [Motrin] 800 mg PO Q8HR PRN #20 tab 05/11/16 Allergies Allergy/AdvReac Type Severity Reaction Status Date / Time acetaminophen [From [place]] Allergy Unknown Verified 05/25/17 22:14 cefuroxime Allergy Rash/Hives Verified 05/25/17 22:14 hydrocodone [From [place]] Allergy Unknown Verified 05/25/17 22:14 latex Allergy Swelling Verified 05/25/17 22:14 nifedipine [From Procardia] Allergy Unknown Verified 05/25/17 22:14 gabapentin AdvReac altered Verified 05/25/17 22:14 mental status hydromorphone [From Dilaudid] AdvReac Chest Pain Verified 05/25/17 22:14 levetiracetam [From Keppra] AdvReac Toxic Verified 05/25/17 22:14 Levels metoclopramide [From Reglan] AdvReac [place] Verified 05/25/17 22:14 Seizure pentamidine isethionate AdvReac Severe Pain Verified 05/25/17 22:14 pregabalin [From Lyrica] AdvReac Altered Verified 05/25/17 22:14 Mental Status Review of Systems ROS Statement: Those systems with pertinent positive or pertinent negative responses have been documented in the HPI. ROS Other: All systems not noted in ROS Statement are negative. Constitutional: Denies: fever, chills Eyes: Denies: vision change ENT: Denies: throat pain, congestion Respiratory: Denies: cough, dyspnea, wheezes, hemoptysis, stridor Cardiovascular: Reports: chest pain. Denies: palpitations, dyspnea on exertion , edema, syncope Endocrine: Denies: fatigue Gastrointestinal: Reports: nausea. 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 Past Anesthesia/Blood Transfusion Reactions: Postoperative Nausea & Vomiting ( PONV) Past Psychological History: ADD/ADHD Smoking Status: Never smoker Past Alcohol Use History: None Reported Past Drug Use History: None Reported - Past Family History Mother Family Medical History: No Reported History General Exam - General Exam Comments Initial Comments: Sitting up on side of bed. No acute distress. Conversing normally. Patient appears to have mild intermittent episodes of pain. Otherwise well-appearing. Limitations: no limitations General appearance: alert, in no apparent distress Head exam: Present: atraumatic, normocephalic Eye exam: Present: normal appearance, PERRL, EOMI ENT exam: Present: normal exam, mucous membranes moist Neck exam: Present: normal inspection. Absent: meningismus Respiratory exam: Present: normal lung sounds bilaterally, chest wall tenderness. Absent: respiratory distress, wheezes, rales, rhonchi, stridor Cardiovascular Exam: Present: regular rate, normal rhythm GI/Abdominal exam: Present: soft. Absent: distended, tenderness, guarding, rebound, rigid Extremities exam: Present: normal inspection, other (Lower extremity edema or calf tenderness) Back exam: Present: normal inspection Neurological exam: Present: alert, oriented X3 Psychiatric exam: Present: normal affect, normal mood Skin exam: Present: warm, dry, intact, normal color. Absent: rash, cyanosis, diaphoretic Course Vital Signs 05/25/17 05/25/17 05/25/17 21:40 21:56 22:28 Temperature 97.1 F L Pulse Rate 89 99 Respiratory 18 14 16 Rate Blood Pressure 158/75 135/86 O2 Sat by Pulse 100 99 Oximetry 05/25/17 23:17 Temperature Pulse Rate 77 Respiratory 14 Rate Blood Pressure 149/69 O2 Sat by Pulse 98 Oximetry Chest Pain MDM - MDM EKG normal sinus rhythm, no ST or T-wave changes appreciated, heart rate 86. Zofran, Toradol, GI cocktail ordered. Chest x-ray normal. Troponin negative, d-dimer negative. No significant lab abnormalities. Patient and parents updated with all results. Patient states symptoms improved says those medications. They feel comfortable being discharged home. They agree to follow primary care physician one to 2 days. Return to ER if new or worsening symptoms. All questions answered. Disposition Clinical Impression: Chest pain Disposition: HOME SELF-CARE Condition: Good Instructions: Chest Pain (ED) Additional Instructions: Follow-up with your primary care physician. Return to ER if new or worsening symptoms. Referrals: Raysa Landrum MD [Primary Care Provider] - 1-2 days
[2017-05-25 22:33] LABS: Basophils % (A) 0 %; Eosinophils # (A) 0.2 k/uL (0-0.7); Eosinophils % (A) 2 %; HCT 36.1 % (34.0-46.0); HGB 12.3 gm/dL (11.4-16.0); Lymphocytes # (A) 3.2 k/uL (1.0-4.8); Lymphocytes % (A) 45 %; MCH 28.6 pg (25.0-35.0); MCHC 33.9 g/dL (31.0-37.0); MCV 84.4 fL (80.0-100.0); Mean Platelet Volume 7.3; Monocytes # (A) 0.2 k/uL (0-1.0); Monocytes % (A) 3 %; Neutrophils # (A) 3.4 k/uL (1.3-7.7); Neutrophils % (A) 48 %; Platelet Count 270 k/uL (150-450); RBC 4.28 m/uL (3.80-5.40); RDW 13.2 % (11.5-15.5); WBC 7.1 k/uL (3.8-10.6)
[2017-05-25 22:43] LABS: INR 0.9 (<1.2); Partial Thromboplastin Time 23.1 sec (22.0-30.0); Prothrombin Time 9.4 sec (9.0-12.0)
[2017-05-25 22:45] LABS: Anion Gap 13 mmol/L; Blood Urea Nitrogen 15 mg/dL (7-17); Calcium 9.3 mg/dL (8.4-10.2); Carbon Dioxide 23 mmol/L (22-30); Chloride 105 mmol/L (98-107); Glucose 175 mg/dL (74-99); Potassium 3.9 mmol/L (3.5-5.1); Sodium 141 mmol/L (137-145)
[2017-05-25 23:19] VITALS: RESP 14
--- NOTE | 2017-05-25 23:35 | XR ---
EXAMINATION TYPE: XR chest 2V DATE OF EXAM: 05/25/2017 COMPARISON: 01/29/2017 HISTORY: Nausea. Chest pain. TECHNIQUE: Frontal and lateral views of the chest are obtained. FINDINGS: Heart and mediastinum are normal. Lungs are clear of consolidation. There are chest leads. Bony thorax is intact. Pulmonary vascularity is normal. IMPRESSION: Normal chest. No change.
[2017-05-26 00:14] VITALS: BP 143/96; PULSE 90; TEMP 97.8
== END 2017-05-26 00:18 | disposition home or self-care (01) ==
LOC: EC 21:39
DX: R07.9 Chest pain, unspecified (principal); R11.0 Nausea; E11.40 Type 2 diabetes mellitus with diabetic neuropathy, unspecified; M79.7 Fibromyalgia; K21.9 Gastro-esophageal reflux disease without esophagitis; G40.909 Epilepsy, unspecified, not intractable, without status epilepticus; E07.9 Disorder of thyroid, unspecified; F90.9 Attention-deficit hyperactivity disorder, unspecified type; Z86.73 Personal history of transient ischemic attack (TIA), and cerebral infarction without residual deficits; Z88.1 Allergy status to other antibiotic agents; Z88.5 Allergy status to narcotic agent; Z88.8 Allergy status to other drugs, medicaments and biological substances; Z91.040 Latex allergy status; Z79.3 Long term (current) use of hormonal contraceptives; Z79.4 Long term (current) use of insulin; Z79.82 Long term (current) use of aspirin; Z79.899 Other long term (current) drug therapy
CPT/HCPCS: 99285; 96374; 96375 ×2; 36415; 93005; 85379; 80048; 84484; 85025; 85610; 85730; 71046; J2405; J1885

== ENCOUNTER 2017-10-04 19:20 | Emergency (ER) | payer OTHER ==
--- NOTE | 2017-10-04 20:07 | ED ---
Fall HPI - General Chief Complaint: Fall Stated Complaint: fall/hit face & head Time Seen by Provider: 10/04/17 19:43 Source: patient, family, RN notes reviewed Mode of arrival: ambulatory - History of Present Illness Initial Comments: 22-year-old female with past medical history of glioblastoma multiformity, with frontal lobe resection and residual left-sided defects including left foot drop , right eye blindness and conjugate gaze who presents with mother today for chief complaint of fall. Mother states that around 10:30 AM patient was walking in her room when there are goggles under her blanket and she tripped and fell falling onto her left side into a wooden desk hitting the left side of her face and side of head. Patient admitted to left-sided facial pain mostly left cheek with some mild bruising and swelling, and pain in bridge of nose. Denies epistaxis. In addition pt stated she had a headache that seemed a little worse than her daily headaches, and anterior left shoulder pain. Mother was concerned for possible fracture of the facial bones or acute intracranial process. Pt denies LOC, difficulties with speech or ambulation differing from baseline, ataxia, muscles weakness or new onset of loss of sensation. Patient denies any recent fever, chills, shortness of breath, chest pain, back pain, abdominal pain, nausea or vomiting, numbness or tingling, dysuria or hematuria, constipation or diarrhea, headaches or visual changes, or any other complaints. - Related Data Home Medications Medication Instructions Recorded Confirmed Albuterol Inhaler [Ventolin Hfa 2 puff INHALATION RT-Q4H PRN 02/19/16 10/04/17 Inhaler] Albuterol Nebulized [Ventolin 2.5 mg INHALATION RT-QID PRN 02/19/16 10/04/17 Nebulized] Docusate [Colace] 100 mg PO BID 02/19/16 10/04/17 Fluticasone Nasal [place] [Flonase 1 spray EA NOSTRIL BID 02/19/16 10/04/17 Nasal [place]] Insulin Glulisine [Apidra Solostar] See Protocol SQ AC-TID 02/19/16 10/04/17 Ipratropium Nebulized [Atrovent 0.5 mg INHALATION RT-QID PRN 02/19/16 10/04/17 Nebulized] LORazepam [Ativan] 1 mg PO TID PRN 02/19/16 10/04/17 Lacosamide [Vimpat] 200 mg PO BID 02/19/16 10/04/17 Loratadine [Claritin] 10 mg PO DAILY 02/19/16 10/04/17 Methylphenidate HCl [Concerta] 54 mg PO DAILY 02/19/16 10/04/17 Norelgestromin/Ethin.estradiol 1 patch TRANSDERM MOELLER 02/19/16 10/04/17 [Xulane Patch] Omeprazole [PriLOSEC] 20 mg PO HS 02/19/16 10/04/17 Polyethylene Glycol 3350 [Miralax] 17 gm PO BID PRN 02/19/16 10/04/17 clonazePAM [Clonazepam] 2 mg PO DAILY PRN 02/19/16 10/04/17 lamoTRIgine [LaMICtal] 175 mg PO BID 02/19/16 10/04/17 Ipratropium [place] [Atrovent Hfa] 2 puff INHALATION RT-QID PRN 05/11/16 Levothyroxine Sodium [Synthroid] 175 mcg PO DAILY 05/11/16 10/04/17 risperiDONE [RisperDAL] 2 mg PO BID 05/11/16 10/04/17 Aspirin EC [Ecotrin Low Dose] 81 mg PO DAILY 08/17/16 10/04/17 Insulin Glargine,Hum.rec.anlog 29 unit SQ HS 08/17/16 10/04/17 [Lantus Solostar] Somatropin [Norditropin Flexpro] 0.7 mg SQ HS 08/17/16 10/04/17 Previous Rx's Medication Instructions Recorded Ibuprofen [Motrin] 800 mg PO Q8HR PRN #20 tab 05/11/16 Allergies Allergy/AdvReac Type Severity Reaction Status Date / Time acetaminophen [From [place]] Allergy Unknown Verified 10/04/17 20:12 cefuroxime Allergy Rash/Hives Verified 10/04/17 20:12 hydrocodone [From [place]] Allergy Unknown Verified 10/04/17 20:12 latex Allergy Swelling Verified 10/04/17 20:12 nifedipine [From Procardia] Allergy Unknown Verified 10/04/17 20:12 gabapentin AdvReac altered Verified 10/04/17 20:12 mental status hydromorphone [From Dilaudid] AdvReac Chest Pain Verified 10/04/17 20:12 levetiracetam [From Keppra] AdvReac Toxic Verified 10/04/17 20:12 Levels metoclopramide [From Reglan] AdvReac [place] Verified 10/04/17 20:12 Seizure pentamidine isethionate AdvReac Severe Pain Verified 10/04/17 20:12 pregabalin [From Lyrica] AdvReac Altered Verified 10/04/17 20:12 Mental Status Review of Systems ROS Statement: Those systems with pertinent positive or pertinent negative responses have been documented in the HPI. ROS Other: All systems not noted in ROS Statement are negative. Constitutional: Denies: fever, chills, weight change, night sweats Eyes: Reports: vision change. Denies: eye pain ENT: Denies: hearing loss Respiratory: Denies: cough, dyspnea, wheezes, hemoptysis Cardiovascular: Denies: chest pain, palpitations Gastrointestinal: Denies: abdominal pain, nausea, vomiting, diarrhea, constipation Genitourinary: Denies: urgency, dysuria, frequency Musculoskeletal: Reports: as per HPI, arthralgia (left anterior shoulder) Skin: Reports: change in color (area of ecchymosis over center of left cheek). Denies: rash, lesions Neurological: Reports: headache. 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 Past Anesthesia/Blood Transfusion Reactions: Postoperative Nausea & Vomiting ( PONV) Past Psychological History: ADD/ADHD Smoking Status: Never smoker Past Alcohol Use History: None Reported Past Drug Use History: None Reported - Past Family History Mother Family Medical History: No Reported History General Exam - General Exam Comments Initial Comments: General: The patient is awake and alert, in no distress, and does not appear acutely ill. Eye: Pupils are equal, round and reactive to light, extra-ocular movements are intact. No nystagmus. right complete blindness, and deviation-mother states this is baseline. There is normal conjunctiva bilaterally. No signs of icterus. Ears, nose, mouth and throat: There are moist mucous membranes and no oral lesions. Neck: The neck is supple, there is no tenderness or JVD. Cardiovascular: There is a regular rate and rhythm. No murmur, rub or gallop is appreciated. Respiratory: Lungs are clear to auscultation, respirations are non-labored, breath sounds are equal. No wheezes, stridor, rales, or rhonchi. Musculoskeletal: Midline tenderness to palpation over the c-spine. Full ROM of c -spine. Full sensation of UE and LE b/l. Left foot drop. Pt able to fully range the left shoulder with +4/5 strength- pt states its been weaker since her brain surgery. No palpable defect or deformity. no ecchymosis of the overlying skin of the left shoulder. Radial and ulnar pulses equal bilaterally 2+. small faint bruise to left cheek, all dentition intact, no buccal injury, pt has full jaw strength, no difficulty with opening closing. Neurological: A&O x 3. CN II-XII intact, There are no obvious motor or sensory deficits. Coordination appears grossly intact. Speech is normal. Skin: Skin is warm and dry and no rashes or lesions are noted. No abrasions of the head, face or shoulder, No contusions of the facial bones, or scalp. Mild tenderness to palpation over the left parietal region of scalp, no crepitus or deformities noted. Psychiatric: Cooperative, appropriate mood & affect, normal judgment. Limitations: no limitations Course Vital Signs 10/04/17 19:52 Temperature 98.6 F Pulse Rate 92 Respiratory 18 Rate Blood Pressure 153/78 O2 Sat by Pulse 97 Oximetry Medical Decision Making - Medical Decision Making Pt denied ibuprofen or tylenol during stay stating the pain was not that bad. Pt neuro exam intact, deficits that were noted on examination mother stated that those were baseline. Mother stated pt had history of osteopenia. Give hx of fall with facial, midline c-spine pain and change in characteristic of headache with chronic intracranial process CT of brain, c-spine and facial bones was obtained. Returned WNL. Complaints of L shoulder pain XR obtained returned (-). Pt stated upon reevaluation that her headache was better, during her stay there was no changes in neurological examination. Case discussed with Dr. Ceron, at this time we feel given mechanism of injury and (-) injury, with improvement of headache that pt is stable for d/c with PCP f/u in 1-2 days and use of over the counter iburpofen or tylenol for pain. Pt mother agreed with plan stating they were ready to go home. Pt d/c in stable condition. Disposition Clinical Impression: Left shoulder pain, Fall, Left-sided face pain Disposition: HOME SELF-CARE Condition: Good Instructions: Fall Prevention for Children (ED) Additional Instructions: Please use over the counter medication as discussed. Please follow-up with family doctor in the next 2 days. Please return to emergency room if the symptoms increase or worsen or for any other concerns as discussed. Is patient prescribed a controlled substance at d/c from ED?: No Referrals: Oumar Ramírez MD [Primary Care Provider] - 1-2 days Time of Disposition: 21:28
--- NOTE | 2017-10-04 20:13 | XR ---
EXAMINATION TYPE: XR shoulder complete LT DATE OF EXAM: 10/04/2017 COMPARISON: 05/23/2016 HISTORY: Shoulder pain TECHNIQUE: 3 views FINDINGS: I see no fracture nor dislocation. Joint spaces are normal. There are no pathologic calcifi cations. IMPRESSION: Negative left shoulder exam. No change.
--- NOTE | 2017-10-04 20:48 | CT ---
EXAMINATION TYPE: CT brain srini gore con DATE OF EXAM: 10/04/2017 COMPARISON: Head CT scan 01/29/2017 HISTORY: Patient fell face first into dresser. Left sided head injury and visual disturbance. CT DLP: 1444 mGycm Automated exposure control for dose reduction was used. TECHNIQUE: CT scan of the head and cervical spine are performed without contrast. FINDINGS: There is large area of hypodensity in the right frontal lobe. There is right frontal old craniotomy defect. There is some enlargement of the right lateral ventricle. There is no midline shif t. There is no sign of intracranial hemorrhage. Cervical vertebra have normal alignment. Posterior elements are intact. Skull base is intact. IMPRESSION: Encephalomalacia in the right frontal lobe without change compared to old exam. No acute intracranial abnormality. Negative CT scan cervical spine.
--- NOTE | 2017-10-04 20:50 | CT ---
EXAMINATION TYPE: CT facial bones wo con DATE OF EXAM: 10/04/2017 COMPARISON: None HISTORY: Patient fell face first into dresser. Left sided head injury and visual disturbance. CT DLP: 544.7 mGycm Automated exposure control for dose reduction was used. TECHNIQUE: CT scan of the sinuses is performed without contrast, axial images are obtained, coronal r eformatted images are also reviewed. FINDINGS: The orbital margins are intact. There is no evidence of blowout fracture. There is normal a eration of the paranasal sinuses. The maxilla is intact. There is bilateral patency of the ostiomeata l complex. The mandibular ring is intact. Temporomandibular joints appear normal. Zygomatic arches ap pear normal. Nasal bone appears intact. There is no evidence of orbital mass. IMPRESSION: Negative CT scan of the facial bones. No fracture.
[2017-10-04 21:55] VITALS: BP 147/62; PULSE 88; RESP 16; TEMP 97.8
== END 2017-10-04 21:40 | disposition home or self-care (01) ==
LOC: EC 19:20
DX: R51 Headache (principal); M25.512 Pain in left shoulder; M21.372 Foot drop, left foot; J45.909 Unspecified asthma, uncomplicated; M79.7 Fibromyalgia; K21.9 Gastro-esophageal reflux disease without esophagitis; G40.909 Epilepsy, unspecified, not intractable, without status epilepticus; E07.9 Disorder of thyroid, unspecified; H54.61 Unqualified visual loss, right eye, normal vision left eye; H91.90 Unspecified hearing loss, unspecified ear; E11.40 Type 2 diabetes mellitus with diabetic neuropathy, unspecified; F90.9 Attention-deficit hyperactivity disorder, unspecified type; Z79.4 Long term (current) use of insulin; Z79.51 Long term (current) use of inhaled steroids; Z79.82 Long term (current) use of aspirin; Z79.899 Other long term (current) drug therapy; Z91.040 Latex allergy status; Z88.5 Allergy status to narcotic agent; Z88.1 Allergy status to other antibiotic agents; Z88.8 Allergy status to other drugs, medicaments and biological substances; Z88.6 Allergy status to analgesic agent; Z85.89 Personal history of malignant neoplasm of other organs and systems; W01.198A Fall on same level from slipping, tripping and stumbling with subsequent striking against other object, initial encounter
CPT/HCPCS: 70450; 70486; 72125; 99284

== ENCOUNTER 2018-07-03 21:03 | Emergency (ER) | payer OTHER ==
[2018-07-03 21:09] VITALS: BP 167/84; PULSE 84; RESP 16; TEMP 98.1
--- NOTE | 2018-07-03 21:11 | ED ---
Allergic Reaction HPI - General Chief complaint: Allergic Reaction Stated complaint: Allergic Reaction Time Seen by Provider: 07/03/18 21:10 Source: patient, family Mode of arrival: ambulatory Limitations: no limitations - History of Present Illness Initial Comments: Santos is a 23-year-old female with extensive past medical history most significant for history of GBM as a child with residual right eye blindness, left-sided weakness and seizure disorder. Patient has multiple drug ALLERGIES as well as an ALLERGY to latex but no known food ALLERGIES. Patient was with her family for dinner today and reports that she ate at a buffet, she did eat multiple different foods including shrimp. Patient reports that while she was at dinner she began feel very itchy and her arms and chest. Upon going home mom noticed that the patient seemed to have some lisping and the patient reported to her that she felt like her tongue was swollen and her throat was scratchy. Due to the patient being on multiple medications and have a seizure disorder mom didn't feel comfortable giving her any medications so she brought her to the ER for evaluation. - Related Data Home Medications Medication Instructions Recorded Confirmed Albuterol Inhaler [Ventolin Hfa 2 puff INHALATION RT-Q4H PRN 02/19/16 07/03/18 Inhaler] Albuterol Nebulized [Ventolin 2.5 mg INHALATION RT-QID PRN 02/19/16 07/03/18 Nebulized] Docusate [Colace] 100 mg PO BID 02/19/16 07/03/18 Fluticasone Nasal [place] [Flonase 1 spray EA NOSTRIL BID 02/19/16 07/03/18 Nasal [place]] Insulin Glulisine [Apidra Solostar] See Protocol SQ AC-TID 02/19/16 07/03/18 Ipratropium Nebulized [Atrovent 0.5 mg INHALATION RT-QID PRN 02/19/16 07/03/18 Nebulized] LORazepam [Ativan] 1 mg PO TID PRN 02/19/16 07/03/18 Lacosamide [Vimpat] 200 mg PO BID 02/19/16 07/03/18 Loratadine [Claritin] 10 mg PO DAILY 02/19/16 07/03/18 Methylphenidate HCl [Concerta] 54 mg PO DAILY 02/19/16 07/03/18 Norelgestromin/Ethin.estradiol 1 patch TRANSDERM MOELLER 02/19/16 07/03/18 [Xulane Patch] Omeprazole [PriLOSEC] 20 mg PO HS 02/19/16 07/03/18 Polyethylene Glycol 3350 [Miralax] 17 gm PO BID PRN 02/19/16 07/03/18 clonazePAM [Clonazepam] 2 mg PO DAILY PRN 02/19/16 07/03/18 lamoTRIgine [LaMICtal] 175 mg PO BID 02/19/16 07/03/18 Ipratropium [place] [Atrovent Hfa] 2 puff INHALATION RT-QID PRN 05/11/16 07/03/18 Levothyroxine Sodium [Synthroid] 175 mcg PO DAILY 05/11/16 07/03/18 risperiDONE [RisperDAL] 2 mg PO BID 05/11/16 07/03/18 Aspirin EC [Ecotrin Low Dose] 81 mg PO DAILY 08/17/16 07/03/18 Insulin Glargine,Hum.rec.anlog 26 unit SQ HS 08/17/16 07/03/18 [Lantus Solostar] Somatropin [Norditropin Flexpro] 0.7 mg SQ HS 08/17/16 07/03/18 Previous Rx's Medication Instructions Recorded Ibuprofen [Motrin] 800 mg PO Q8HR PRN #20 tab 05/11/16 EPINEPHrine [Epipen 2-[place]] 0.3 mg IM ONCE PRN #1 pack 07/03/18 Allergies Allergy/AdvReac Type Severity Reaction Status Date / Time acetaminophen [From [place]] Allergy Unknown Verified 07/03/18 21:21 cefuroxime Allergy Rash/Hives Verified 07/03/18 21:21 hydrocodone [From [place]] Allergy Unknown Verified 07/03/18 21:21 latex Allergy Swelling Verified 07/03/18 21:21 nifedipine [From Procardia] Allergy Unknown Verified 07/03/18 21:21 shrimp Allergy Swelling Verified 07/04/18 00:14 gabapentin AdvReac altered Verified 07/03/18 21:21 mental status hydromorphone [From Dilaudid] AdvReac Chest Pain Verified 07/03/18 21:21 levetiracetam [From Keppra] AdvReac Toxic Verified 07/03/18 21:21 Levels metoclopramide [From Reglan] AdvReac [place] Verified 07/03/18 21:21 Seizure pentamidine isethionate AdvReac Severe Pain Verified 07/03/18 21:21 pregabalin [From Lyrica] AdvReac Altered Verified 07/03/18 21:21 Mental Status Review of Systems ROS Statement: Those systems with pertinent positive or pertinent negative responses have been documented in the HPI. ROS Other: All systems not noted in ROS Statement are negative. 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 Past Anesthesia/Blood Transfusion Reactions: Postoperative Nausea & Vomiting (PONV) Past Psychological History: ADD/ADHD Smoking Status: Never smoker Past Alcohol Use History: None Reported Past Drug Use History: None Reported - Past Family History Mother Family Medical History: No Reported History General Exam - General Exam Comments Initial Comments: Physical Exam GENERAL: Patient is well-developed and well-nourished. Patient is nontoxic and well-hydrated and is in no distress. HENT: Normocephalic, Atraumatic. TM normal bilaterally No angioedema of the lips, tongue or uvula, uvula is midline there is no deviation EYES: PERRL, EOMI PULMONARY: Unlabored respirations. No stridor No audible rales rhonchi or wheezing was noted. CARDIOVASCULAR: There is a regular rate and rhythm without any murmurs gallops or rubs. ABDOMEN: Soft and nontender with normal bowel sounds. SKIN: No hives Skin is clear with no lesions or rashes and otherwise unremarkable. : Deferred NEUROLOGIC: Patient is alert and oriented x3 Left-sided weakness MUSCULOSKELETAL: Normal extremities with adequate strength and full range of motion. No lower extremity swelling or edema. No calf tenderness. PSYCHIATRIC: Normal psychiatric evaluation Limitations: no limitations Course Vital Signs 07/03/18 21:05 Temperature 98.1 F Pulse Rate 84 Respiratory 16 Rate Blood Pressure 167/84 O2 Sat by Pulse 98 Oximetry - Reevaluation(s) Reevaluation #1: Patient reports chest pain and palpitations - EKG and CXR ordered Reevaluation #2: Patient was reevaluated she was standing in the hallway stating that she is feeling all better and would like to be discharged home. Patient remains asymptomatic no rash no wheezing no nausea vomiting no hypoxia. Medical Decision Making - Medical Decision Making The patient was seen and evaluated history is obtained from patient and the mother, patient presenting with a possible ALLERGIC reaction to unknown substance. Patient with no previous food ALLERGY. Patient concerned she may be ALLERGIC to shrimp though she has tolerated them in the past. Patient reports feeling itchy that resolved she didn't reports feeling tightness in her throat and swelling in her mouth, physical exam is unremarkable there is no wheezing no stridor no signs of angioedema Will treat with Benadryl and observe Receive the Benadryl she then began complaining that she felt like her heart was racing or beating very hard and EKG and a chest x-ray were obtained which were unremarkable. Patient was observed for approximately another hour and then reported complete resolution of her symptoms patient reports she is feeling all better mom reports she's much better and feels that she is back at her baseline at this time the comfortable with the plan for discharge they will be prescribed an EpiPen. I did discuss with the mother that if this was an ALLERGIC reaction was very mild however repeat exposures could be more severe and the patient should have an EpiPen with her at all times. Mom expressed understanding of this QUESTIONS pertaining care answered return parameters discussed patient discharged home in stable condition. - EKG Data -: EKG Interpreted by Me EKG Comments: EKG was obtained due to complaint of chest pain EKG obtained at 2330, rate of 72 rhythm is sinus Sirs normal axis there are normal intervals, NV 156, QRS 92, QTc 440. There are no acute ST elevations or depressions there is no evidence of acute ischemia or infarction. Disposition Clinical Impression: Allergic reaction Disposition: HOME SELF-CARE Condition: Stable Instructions (If sedation given, give patient instructions): Food Allergy (ED) Prescriptions: EPINEPHrine [Epipen 2-Meek] 0.3 mg IM ONCE PRN #1 pack PRN Reason: Anaphylaxis Is patient prescribed a controlled substance at d/c from ED?: No Referrals: Oumar Ramírez MD [Primary Care Provider] - 1-2 days
[2018-07-03] MEDS ORDERED: diphenhydrAMINE 50 MG CAP PO STA (21:16)
--- NOTE | 2018-07-03 23:02 | XR ---
EXAM: XR Chest, 2 Views CLINICAL HISTORY: Chest pain, palpitations TECHNIQUE: Frontal and lateral views of the chest. COMPARISON: 05/25/17 FINDINGS: Lungs: Unremarkable. No consolidation. Pleural space: Unremarkable. No pneumothorax. Heart: Unremarkable. No cardiomegaly. Mediastinum: Unremarkable. Bones/joints: Unremarkable. IMPRESSION: No acute abnormality in the chest
== END 2018-07-04 00:15 | disposition home or self-care (01) ==
LOC: EC 21:03
DX: T78.40XA Allergy, unspecified, initial encounter (principal); R07.9 Chest pain, unspecified; F80.0 Phonological disorder; J45.909 Unspecified asthma, uncomplicated; E11.40 Type 2 diabetes mellitus with diabetic neuropathy, unspecified; K21.9 Gastro-esophageal reflux disease without esophagitis; H54.61 Unqualified visual loss, right eye, normal vision left eye; G90.1 Familial dysautonomia [Riley-Day]; I73.00 Raynaud's syndrome without gangrene; H91.90 Unspecified hearing loss, unspecified ear; E07.9 Disorder of thyroid, unspecified; G40.909 Epilepsy, unspecified, not intractable, without status epilepticus; M79.7 Fibromyalgia; F90.9 Attention-deficit hyperactivity disorder, unspecified type; Z88.1 Allergy status to other antibiotic agents; Z88.5 Allergy status to narcotic agent; Z88.6 Allergy status to analgesic agent; Z88.8 Allergy status to other drugs, medicaments and biological substances; Z91.013 Allergy to seafood; Z91.040 Latex allergy status; Z79.4 Long term (current) use of insulin; Z79.51 Long term (current) use of inhaled steroids; Z79.3 Long term (current) use of hormonal contraceptives; Z79.82 Long term (current) use of aspirin; Z79.890 Hormone replacement therapy; Z79.899 Other long term (current) drug therapy; Z87.39 Personal history of other diseases of the musculoskeletal system and connective tissue; Z85.841 Personal history of malignant neoplasm of brain; Z90.89 Acquired absence of other organs; Z98.890 Other specified postprocedural states
CPT/HCPCS: 71046; 99283

== ENCOUNTER 2018-09-12 13:02 | Observation (INO) | payer OTHER ==
[2018-09-12] MEDS ORDERED: SODIUM CHLORIDE 0.9% 1,000 ML IV STA (13:31)
--- NOTE | 2018-09-12 13:41 | ED ---
General Adult HPI - General Chief complaint: Seizure Stated complaint: seizure Time Seen by Provider: 09/12/18 13:30 Source: patient, family Mode of arrival: wheelchair Limitations: altered mental status - History of Present Illness Initial comments: Dictation was produced using [employer] dictation software. please excuse any grammatical, word or spelling errors. Chief Complaint: Patient is a 23-year-old female past medical history of glioblastoma diagnosed 15 years ago presents with headache and mental status changes. History of Present Illness: A 23-year-old female she has past medical history of glioblastoma. She is brought in by her general car supervisor yard. Patient was diagnosed with glioblastoma several years ago. She has an established neurosurgeon and neurologist at [facility]. Patient was noted to be showing signs of slurred speech and ataxia approximate one half hour prior to arrival. Patient has had episodes like this in the past. She didn't had an episode of seizure. Senior Instructor called her doctor's and was told to come to the emergency department for medical evaluation. Patient has history of seizures. She was given diazepam earlier today. She was still found to be confused. The ROS documented in this emergency department record has been reviewed and confirmed by me. Those systems with pertinent positive or negative responses have been documented in the HPI. All other systems are other negative and/or noncontributory. PHYSICAL EXAM: General Impression: Alert and oriented x3, not in acute distress HEENT: Normocephalic atraumatic, extra-ocular movements intact, pupils equal and reactive to light bilaterally, mucous membranes moist, right eye lateral gaze Cardiovascular: Heart regular rate and rhythm, S1&S2 audible, no murmurs, rubs or gallops Chest: Lungs clear to auscultation bilaterally, no rhonchi, no wheeze, no rales Abdomen: Bowel sounds present, abdomen soft, non-tender, non-distended, no organomegaly Musculoskeletal: Pulses present and equal in all extremities, no peripheral edema Motor: no focal deficits noted Neurological: CN II-XII grossly intact, no focal motor or sensory deficits noted Skin: Intact with no visualized rashes Psych: Normal affect and mood ED course: 23-year-old female with past medical history will last all presents with altered mental status and increased seizure. Signs upon arrival are within acceptable limits.Laboratory evaluation obtained. Hemoglobin 10.4 this is slightly less than her usual however she has had her menstrual period. Metabolic panel is unremarkable. Toxicology labs were ordered by nursing staff. They're also found to be unremarkable. Computed tomography scan of the brain was obtained showing no acute processes. In comparison from most recent in fall of last year. Patient given intravenous fluids she is given steroids for concern of recurrent intracranial mass. Given intravenous fluids. Discussed mary brar case with [facility] for possible transfer however they were not able to get in contact with Dr. Villegas patient's established neurologist. Working closely with [facility] bed coordinator however they were not able to get in contact with Dr. Villegas. I believe patient is symptomatically enough to warrant at least an observation stay and neurology evaluation. Patient and patient's family member was agreeable to be admitted to our facility with neurology on consultation. Patient reevaluated at bedside she is well- appearing at this time. No experiences of seizure while in emergency department. - Related Data Home Medications Medication Instructions Recorded Confirmed Albuterol Inhaler [Ventolin Hfa 2 puff INHALATION RT-Q4H PRN 02/19/16 09/12/18 Inhaler] Albuterol Nebulized [Ventolin 2.5 mg INHALATION RT-QID PRN 02/19/16 09/12/18 Nebulized] Docusate [Colace] 100 mg PO BID 02/19/16 09/12/18 Fluticasone Nasal [place] [Flonase 1 spray EA NOSTRIL BID 02/19/16 09/12/18 Nasal [place]] Ipratropium Nebulized [Atrovent 0.5 mg INHALATION RT-QID PRN 02/19/16 09/12/18 Nebulized] LORazepam [Ativan] 1 mg PO TID PRN 02/19/16 09/12/18 Lacosamide [Vimpat] 200 mg PO BID 02/19/16 09/12/18 Loratadine [Claritin] 10 mg PO DAILY 02/19/16 09/12/18 Methylphenidate HCl [Concerta] 54 mg PO DAILY 02/19/16 09/12/18 Norelgestromin/Ethin.estradiol 1 patch TRANSDERM MOELLER 02/19/16 09/12/18 [Xulane Patch] Omeprazole [PriLOSEC] 20 mg PO HS 02/19/16 09/12/18 clonazePAM [Clonazepam] 2 mg PO DAILY PRN 02/19/16 09/12/18 lamoTRIgine [LaMICtal] 150 mg PO BID 02/19/16 09/12/18 Ipratropium [place] [Atrovent Hfa] 2 puff INHALATION RT-QID PRN 05/11/16 09/12/18 Levothyroxine Sodium [Synthroid] 175 mcg PO DAILY 05/11/16 09/12/18 risperiDONE [RisperDAL] 2 mg PO BID 05/11/16 09/12/18 Aspirin EC [Ecotrin Low Dose] 81 mg PO DAILY 08/17/16 09/12/18 Insulin Glargine,Hum.rec.anlog 26 unit SQ HS 08/17/16 09/12/18 [Lantus Solostar] Somatropin [Norditropin Flexpro] 0.7 mg SQ HS 08/17/16 09/12/18 Insulin Lispro [Admelog] See Protocol SQ AC-TID 09/12/18 09/12/18 lamoTRIgine [LaMICtal] 25 mg PO BID 09/12/18 09/12/18 Previous Rx's Medication Instructions Recorded Ibuprofen [Motrin] 800 mg PO Q8HR PRN #20 tab 05/11/16 EPINEPHrine [Epipen 2-Meek] 0.3 mg IM ONCE PRN #1 pack 07/03/18 Allergies Allergy/AdvReac Type Severity Reaction Status Date / Time acetaminophen [From [place]] Allergy Unknown Verified 09/12/18 14:03 cefuroxime Allergy Rash/Hives Verified 09/12/18 14:03 hydrocodone [From [place]] Allergy Unknown Verified 09/12/18 14:03 latex Allergy Swelling Verified 09/12/18 14:03 nifedipine [From Procardia] Allergy Unknown Verified 09/12/18 14:03 shrimp Allergy Swelling Verified 09/12/18 14:03 gabapentin AdvReac altered Verified 09/12/18 14:03 mental status hydromorphone [From Dilaudid] AdvReac Chest Pain Verified 09/12/18 14:03 levetiracetam [From Keppra] AdvReac Toxic Verified 09/12/18 14:03 Levels metoclopramide [From Reglan] AdvReac [place] Verified 09/12/18 14:03 Seizure pentamidine isethionate AdvReac Severe Pain Verified 09/12/18 14:03 pregabalin [From Lyrica] AdvReac Altered Verified 09/12/18 14:03 Mental Status Review of Systems ROS Statement: Those systems with pertinent positive or pertinent negative responses have been documented in the HPI. ROS Other: All systems not noted in ROS Statement are negative. 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 Past Anesthesia/Blood Transfusion Reactions: Postoperative Nausea & Vomiting (PONV) Past Psychological History: ADD/ADHD Smoking Status: Never smoker Past Alcohol Use History: None Reported Past Drug Use History: None Reported - Past Family History Mother Family Medical History: No Reported History General Exam Limitations: altered mental status Course Vital Signs 09/12/18 13:06 Temperature 98.2 F Pulse Rate 88 Respiratory 20 Rate Blood Pressure 133/74 O2 Sat by Pulse 96 Oximetry Medical Decision Making - Lab Data Result diagrams: 09/12/18 15:30 09/12/18 15:30 Lab Results 09/12/18 09/12/18 09/12/18 Range/Units 15:30 15:30 15:42 WBC 6.5 (3.8-10.6) k/uL RBC 3.66 L (3.80-5.40) m/uL Hgb 10.4 L (11.4-16.0) gm/dL Hct 32.2 L (34.0-46.0) % MCV 87.8 (80.0-100.0) fL MCH 28.5 (25.0-35.0) pg MCHC 32.5 (31.0-37.0) g/dL RDW 13.7 (11.5-15.5) % Plt Count 231 (150-450) k/uL Neutrophils % 47 % Lymphocytes % 46 % Monocytes % 4 % Eosinophils % 1 % Basophils % 0 % Neutrophils # 3.1 (1.3-7.7) k/uL Lymphocytes # 3.0 (1.0-4.8) k/uL Monocytes # 0.3 (0-1.0) k/uL Eosinophils # 0.1 (0-0.7) k/uL Basophils # 0.0 (0-0.2) k/uL Sodium 142 (137-145) mmol/L Potassium 3.8 (3.5-5.1) mmol/L Chloride 110 H (98-107) mmol/L Carbon Dioxide 25 (22-30) mmol/L Anion Gap 7 mmol/L BUN 12 (7-17) mg/dL Creatinine 0.77 (0.52-1.04) mg/dL Est GFR (CKD-EPI)AfAm >90 (>60 ml/min/1.73 sqM) Est GFR (CKD-EPI)NonAf >90 (>60 ml/min/1.73 sqM) Glucose 107 H (74-99) mg/dL POC Glucose (mg/dL) 113 H (75-99) mg/dL POC Glu Social Insurance Adviser ID Vasu Gonzalez Calcium 9.1 (8.4-10.2) mg/dL Total Bilirubin 0.3 (0.2-1.3) mg/dL AST 40 H (14-36) U/L ALT 39 (9-52) U/L Alkaline Phosphatase 108 (38-126) U/L Total Protein 6.2 L (6.3-8.2) g/dL Albumin 3.6 (3.5-5.0) g/dL Salicylates <1.0 mg/dL Acetaminophen <10.0 ug/mL Serum Alcohol <10 mg/dL Disposition Clinical Impression: Seizure, Dizziness Disposition: ADMITTED IP TO THIS HOSP Condition: Fair Referrals: Oumar Ramírez MD [Primary Care Provider] - 1-2 days Decision Time: 17:42
[2018-09-12 15:43] LABS: Glucose,Whole Blood 113 mg/dL (75-99)
[2018-09-12 15:44] LABS: Basophils % (A) 0 %; Eosinophils # (A) 0.1 k/uL (0-0.7); Eosinophils % (A) 1 %; HCT 32.2 % (34.0-46.0); HGB 10.4 gm/dL (11.4-16.0); Lymphocytes % (A) 46 %; MCH 28.5 pg (25.0-35.0); MCHC 32.5 g/dL (31.0-37.0); MCV 87.8 fL (80.0-100.0); Mean Platelet Volume 6.8; Monocytes # (A) 0.3 k/uL (0-1.0); Monocytes % (A) 4 %; Neutrophils # (A) 3.1 k/uL (1.3-7.7); Neutrophils % (A) 47 %; Platelet Count 231 k/uL (150-450); RBC 3.66 m/uL (3.80-5.40); RDW 13.7 % (11.5-15.5); WBC 6.5 k/uL (3.8-10.6)
[2018-09-12 15:51] LABS: ALT 39 U/L (9-52); AST 40 U/L (14-36); Acetaminophen <10.0 ug/mL; African American GFR (CKD) >90 (>60 ml/min/1.73 sqM); Albumin 3.6 g/dL (3.5-5.0); Alcohol <10 mg/dL; Alkaline Phosphatase 108 U/L (38-126); Anion Gap 7 mmol/L; Blood Urea Nitrogen 12 mg/dL (7-17); Calcium 9.1 mg/dL (8.4-10.2); Carbon Dioxide 25 mmol/L (22-30); Chloride 110 mmol/L (98-107); Glucose 107 mg/dL (74-99); Potassium 3.8 mmol/L (3.5-5.1); Salicylate <1.0 mg/dL; Sodium 142 mmol/L (137-145); Total Bilirubin 0.3 mg/dL (0.2-1.3); Total Protein 6.2 g/dL (6.3-8.2)
--- NOTE | 2018-09-12 15:52 | CT ---
EXAMINATION TYPE: CT brain wo con DATE OF EXAM: 09/12/2018 COMPARISON: 10/04/2017 HISTORY: 23-year-old female Seizure, dizziness and slurred speech TECHNIQUE: Examination was done in axial plane without intravenous contrast. Coronal and sagittal r econstructions performed. CT DLP: 1054.4 mGycm Automated exposure control for dose reduction was used. FINDINGS: Demonstrate a large area of encephalomalacia anterior right frontal lobe with ex vacuo enlargement of the frontal horn of right lateral ventricle. Otherwise, no evidence for acute intracranial hemorrhage, acute ischemic change, mass, mass effect, m idline shift, or extra-axial fluid collection. No effacement of cerebral sulci or basal subarachnoid cisterns. Koo-white matter differentiation is maintained. Prior craniotomy flap right right frontotemporal region. Paranasal sinuses and mastoid air cells are well pneumatized. Orbits and globes are intact. Frontal IMPRESSION: Large area of right frontal lobe encephalomalacia with overlying craniotomy flap are unchanged. No ac [place] intracranial abnormality seen.
[2018-09-12] MEDS ORDERED: DEXAMETHASONE SOD PHOSPHATE 10 MG/ML 1 ML VIAL IV STA (16:16)
[2018-09-12] MEDS ORDERED: NALOXONE 0.4 MG/ML 1 ML VIAL IV PRN (17:43)
[2018-09-12] MEDS ORDERED: LORazepam 1 MG TAB PO PRN (17:44)
[2018-09-12] MEDS ORDERED: ALBUTEROL NEBULIZED 2.5 MG/3 ML INHALATION PRN (17:44)
[2018-09-12] MEDS ORDERED: clonazePAM 1 MG TAB PO PRN (17:44)
[2018-09-12] MEDS ORDERED: ALBUTEROL INHALER 60 PUFF/8 GM INHALER INHALATION PRN (17:44)
[2018-09-12] MEDS ORDERED: LORazepam 2 MG/ML INJ IV PRN (17:48)
[2018-09-12] MEDS: SODIUM CHLORIDE 0.9% 1,000 ML IV SCH (20:30)
[2018-09-12 20:37] VITALS: BMI 38.0
[2018-09-12 22:30] LABS: Glucose,Whole Blood 252 mg/dL (75-99)
[2018-09-12] MEDS: LACOSAMIDE 50 MG TABLET PO SCH (22:30)
[2018-09-12] MEDS: DOCUSATE 100 MG CAP PO SCH (22:30)
[2018-09-12] MEDS: lamoTRIgine 100 MG TAB PO SCH (22:31)
[2018-09-12] MEDS: lamoTRIgine 25 MG TAB PO SCH (22:31)
[2018-09-12] MEDS: INSULIN DETEMIR (LEVEMIR) 100 UNIT/ML SYR SQ SCH (22:33)
[2018-09-13] MEDS ORDERED: LORazepam 2 MG/ML INJ IV PRN (02:38)
[2018-09-13 06:35] LABS: Glucose,Whole Blood 190 mg/dL (75-99)
[2018-09-13] MEDS: INSULIN ASPART (NovoLOG) 100 UNIT/ML VIAL SQ SCH ×4 (06:40→21:04)
[2018-09-13] MEDS: LEVOTHYROXINE 100 MCG TAB PO SCH (06:41)
[2018-09-13] MEDS: LEVOTHYROXINE 75 MCG TAB PO SCH (06:41)
--- NOTE | 2018-09-13 09:13 | P.CNNES ---
History of Present Illness Consult date: 09/13/18 Requesting physician: Roc Solomon Reason for Consult: GBS/AMS Chief complaint: AMS History of Present Illness: 23 RH female h/o GBS with SZ d/o followed by subspecialists neurooncology and neurosurgery at [facility] brought in by caregiver due to AMS c/w dysarthria and ataxia around one half hour TIE [employer]ER. She did have episodes in the past but of lesser severity. Caregiver did not think she had a seizure. She is perplexed why patient [facility]. She has not had any seizures while in- house. Caregiver thinks she is coming around but still a little confused. Review of Systems Cannot obtain from patient due to AMS. 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 Past Anesthesia/Blood Transfusion Reactions: Postoperative Nausea & Vomiting (PONV) Past Psychological History: ADD/ADHD Additional Psychological History / Comment(s): mom states special needs Smoking Status: Never smoker Past Alcohol Use History: None Reported Past Drug Use History: None Reported - Past Family History Mother Family Medical History: Thyroid Disorder Sister(s) Additional Family Medical History / Comment(s): raynauds Grandfather Family Medical History: Diabetes Mellitus Uncles Family Medical History: Diabetes Mellitus Medications and Allergies Home Medications Medication Instructions Recorded Confirmed Type Albuterol Inhaler [Ventolin Hfa 2 puff INHALATION RT-Q4H PRN 02/19/16 09/12/18 History Inhaler] Albuterol Nebulized [Ventolin 2.5 mg INHALATION RT-QID PRN 02/19/16 09/12/18 History Nebulized] Docusate [Colace] 100 mg PO BID 02/19/16 09/12/18 History Fluticasone Nasal [place] [Flonase 1 spray EA NOSTRIL BID 02/19/16 09/12/18 H istory Nasal [place]] Ipratropium Nebulized [Atrovent 0.5 mg INHALATION RT-QID PRN 02/19/16 09/12/18 History Nebulized] LORazepam [Ativan] 1 mg PO TID PRN 02/19/16 09/12/18 History Lacosamide [Vimpat] 200 mg PO BID 02/19/16 09/12/18 History Loratadine [Claritin] 10 mg PO DAILY 02/19/16 09/12/18 History Methylphenidate HCl [Concerta] 54 mg PO DAILY 02/19/16 09/12/18 History Norelgestromin/Ethin.estradiol 1 patch TRANSDERM MOELLER 02/19/16 09/12/18 History [Xulane Patch] Omeprazole [PriLOSEC] 20 mg PO HS 02/19/16 09/12/18 History clonazePAM [Clonazepam] 2 mg PO DAILY PRN 02/19/16 09/12/18 History lamoTRIgine [LaMICtal] 150 mg PO BID 02/19/16 09/12/18 History Ibuprofen [Motrin] 800 mg PO Q8HR PRN #20 tab 05/11/16 09/12/18 Rx Ipratropium [place] [Atrovent Hfa] 2 puff INHALATION RT-QID PRN 05/11/16 09/12/18 History Levothyroxine Sodium [Synthroid] 175 mcg PO DAILY 05/11/16 09/12/18 History risperiDONE [RisperDAL] 2 mg PO BID 05/11/16 09/12/18 History Aspirin EC [Ecotrin Low Dose] 81 mg PO DAILY 08/17/16 09/12/18 History Insulin Glargine,Hum.rec.anlog 26 unit SQ HS 08/17/16 09/12/18 History [Lantus Solostar] Somatropin [Norditropin Flexpro] 0.7 mg SQ HS 08/17/16 09/12/18 History EPINEPHrine [Epipen 2-Meek] 0.3 mg IM ONCE PRN #1 pack 07/03/18 09/12/18 Rx Insulin Lispro [Admelog] See Protocol SQ AC-TID 09/12/18 09/12/18 History lamoTRIgine [LaMICtal] 25 mg PO BID 09/12/18 09/12/18 History Allergies Allergy/AdvReac Type Severity Reaction Status Date / Time acetaminophen [From [place]] Allergy Unknown Verified 09/12/18 14:03 cefuroxime Allergy Rash/Hives Verified 09/12/18 14:03 hydrocodone [From [place]] Allergy Unknown Verified 09/12/18 14:03 latex Allergy Swelling Verified 09/12/18 14:03 nifedipine [From Procardia] Allergy Unknown Verified 09/12/18 14:03 shrimp Allergy Swelling Verified 09/12/18 14:03 gabapentin AdvReac altered Verified 09/12/18 14:03 mental status hydromorphone [From Dilaudid] AdvReac Chest Pain Verified 09/12/18 14:03 levetiracetam [From Keppra] AdvReac Toxic Verified 09/12/18 14:03 Levels metoclopramide [From Reglan] AdvReac [place] Verified 09/12/18 14:03 Seizure pentamidine isethionate AdvReac Severe Pain Verified 09/12/18 14:03 pregabalin [From Lyrica] AdvReac Altered Verified 09/12/18 14:03 Mental Status Physical Examination - Vital Signs Vital Signs: Vital Signs Temp Pulse Pulse Resp BP BP Pulse Ox 09/13/18 04:06 97.8 F 78 20 125/84 95 09/12/18 20:18 98.2 F 61 16 148/95 96 09/12/18 20:04 98.2 F 69 20 148/95 94 L 09/12/18 19:05 98.5 F 66 16 151/91 95 09/12/18 13:06 98.2 F 88 20 133/74 96 Intake and Output 09/12/18 09/13/18 09/13/18 22:59 06:59 14:59 Other: # Voids 2 Gen NAD Pleasant and cooperative HEENT NCAT Sclera anicteric MMM O/P clear Neck Supple no carotid bruit Cor RRR no m/r/g Lungs CTAB Abd Soft NTND +BS Ext Warm to touch No edema MS Somnolent but arousable to normal voice Ox2 follows basic commands CN PERRL Right gaze preference crosses midline Diminished left NLF +Gag Sym Shrug Tongue ML Motor Normal bulk/tone No tremors HOLDER x4 Sens Intact to LT x4 Coord Unable to test due to AMS DTRs 1+/4 right 2+/4 left toes withdrawn bilaterally no ankle clonus Gait Deferred Results - Laboratory Findings CBC and BMP: 09/12/18 15:30 09/12/18 15:30 Abnormal Lab Findings: Abnormal Labs 09/12/18 09/12/18 09/12/18 15:30 15:30 15:42 RBC 3.66 L Hgb 10.4 L Hct 32.2 L Chloride 110 H Glucose 107 H POC Glucose (mg/dL) 113 H AST 40 H Total Protein 6.2 L 09/12/18 09/13/18 22:28 06:34 RBC Hgb Hct Chloride Glucose POC Glucose (mg/dL) 252 H 190 H AST Total Protein - Diagnostic Findings Additional findings: CT Head wo cont 09/12/18. Large right forntal encephaloamalcia with overlying craniotomy flap, unchanged. Nil acute. I have reviewed neuroimages myself. Assessment and Plan Assessment: GBS SZ d/o due to above AMS, etiology unclear with DDx that go beyond my capabilities as a general neurologist Plan: -Send AED levels -Continue same LCM and LTG from outpatient -Seizure precautions -I do not manage psychotropics such as neuroleptics or stimulants. Defer to primary team -Long discussion held with caregiver. If they still feel she needs inpatient care, [facility] (neurooncology/neurosurgery) are Thank you for this consult. Please call with ?. Time with Patient: Greater than 30 (Time spent in direct patient care, greater than 50% of which was spent in [id number] counseling and coordination of care: 70 minutes.)
[2018-09-13] MEDS: lamoTRIgine 100 MG TAB PO SCH ×2 (09:22→21:06)
[2018-09-13] MEDS: DOCUSATE 100 MG CAP PO SCH ×2 (09:22→21:05)
[2018-09-13] MEDS: lamoTRIgine 25 MG TAB PO SCH ×2 (09:22→21:06)
[2018-09-13] MEDS: ASPIRIN 81 MG PO SCH (09:22)
[2018-09-13] MEDS: LACOSAMIDE 50 MG TABLET PO SCH ×2 (09:22→21:06)
[2018-09-13 12:43] LABS: Glucose,Whole Blood 155 mg/dL (75-99)
[2018-09-13 17:53] LABS: Glucose,Whole Blood 166 mg/dL (75-99)
[2018-09-13] MEDS: SODIUM CHLORIDE 0.9% 1,000 ML IV SCH (18:01)
[2018-09-13 20:44] LABS: Glucose,Whole Blood 158 mg/dL (75-99)
[2018-09-13] MEDS ORDERED: ONDANSETRON 4 MG/2 ML VIAL IVP PRN (20:57)
[2018-09-13] MEDS: INSULIN DETEMIR (LEVEMIR) 100 UNIT/ML SYR SQ SCH (21:03)
[2018-09-14] MEDS: LEVOTHYROXINE 75 MCG TAB PO SCH (06:45)
[2018-09-14] MEDS: INSULIN ASPART (NovoLOG) 100 UNIT/ML VIAL SQ SCH ×2 (06:45→13:10)
[2018-09-14] MEDS: LEVOTHYROXINE 100 MCG TAB PO SCH (06:45)
[2018-09-14 06:47] LABS: Glucose,Whole Blood 103 mg/dL (75-99)
[2018-09-14 07:56] LABS: Lamotrigine (Lamictal) 3.4 ug/mL (2.0-15.0)
[2018-09-14] MEDS: ASPIRIN 81 MG PO SCH (09:01)
[2018-09-14] MEDS: DOCUSATE 100 MG CAP PO SCH (09:01)
[2018-09-14] MEDS: lamoTRIgine 25 MG TAB PO SCH (09:04)
[2018-09-14] MEDS: LACOSAMIDE 50 MG TABLET PO SCH (09:05)
[2018-09-14] MEDS: lamoTRIgine 100 MG TAB PO SCH (09:05)
--- NOTE | 2018-09-14 09:50 | P.PN ---
Subjective Progress Note Date: 09/14/18 Principal diagnosis: GBS SZ d/o AMS Caregiver has questions regarding referrals to [facility] for continued neurological care as patient is graduating from [employer]. Patient feels much better today. Anxious to go home. No new neuro c/o. Objective - Vital Signs Vital signs: Vital Signs Temp 97.4 F L 09/14/18 08:17 Pulse 66 09/14/18 08:17 Resp 16 09/14/18 08:17 BP 133/71 09/14/18 08:17 Pulse Ox 100 09/14/18 08:17 Intake & Output 09/13/18 09/14/18 09/14/18 18:59 06:59 18:59 Intake Total 660 Output Total 300 400 Balance 360 -400 Intake: Intake, IV Titration 160 Amount Sodium Chloride 0.9% 1, 160 000 ml @ 20 mls/hr IV . Q24H CHIARA Rx#:[id number] Oral 500 Output: Urine 300 400 Other: # Voids 1 1 - Exam Gen NAD Pleasant and cooperative MS A+Ox4 Normal fluency and comprehension Able to follow all commands CN PERRL Right gaze preference crosses midline Diminished left NLF +Gag Sym Shrug Tongue ML Motor Normal bulk/tone No tremors HOLDER x4 Sens Intact to LT x4 Coord Not tested DTRs 1+/4 right 2+/4 left toes withdrawn bilaterally no ankle clonus Gait Deferred - Labs CBC & Chem 7: 09/12/18 15:30 09/12/18 15:30 Labs: Abnormal Lab Results - Last 24 Hours (Table) 09/13/18 09/13/18 09/13/18 Range/Units 12:38 17:48 20:41 POC Glucose (mg/dL) 155 H 166 H 158 H (75-99) mg/dL 09/14/18 Range/Units 06:44 POC Glucose (mg/dL) 103 H (75-99) mg/dL LTG 3.4 Assessment and Plan Assessment: GBS SZ d/o due to above AMS, resolved. Etiology unclear Plan: -LTG level within reference range -LCM level pending -Continue same LCM and LTG from outpatient -Seizure precautions -Long discussion held with caregiver. Recommended that she go to [facility] locally and either the [place] or [facility] for 2nd opinion -Ready for discharge from neuro standpoint. No other inpatient neuro recs from general neurology. Will revisit prn. Thank you again for this consult. Please call with ?. Time with Patient: Less than 30 (Time spent in direct patient care, greater than 50% of which was spent in [id number] counseling and coordination of care: 25 minutes)
[2018-09-14 12:32] VITALS: BP 123/84; PULSE 67; RESP 20; TEMP 97.7
[2018-09-14 12:41] LABS: Glucose,Whole Blood 180 mg/dL (75-99)
[2018-09-18] MEDS ORDERED: NORELGESTROMIN TRANSDERM SCH (09:00)
[2018-09-18] MEDS ORDERED: ETHIN ESTRADIOL TRANSDERM SCH (09:00)
--- NOTE | 2018-09-21 18:47 | P.HPIM ---
History of Present Illness H&P Date: 09/13/18 Chief Complaint: Altered mental status Patient is a 23-year-old female with a known history of glioblastoma diagnosed 15 years ago came to ER as a complaints of headache and mental status changes. Patient was brought by her rib trim separator. Patient was noted to have signs of slu rred speech and ataxia approximately 1 hour prior to arrival. Patient had this episode was previously but have been occurring more frequently. Log Stacker Operator called her physician and was told to come to ER for evaluation. Denied any seizures. Patient usually follows with neuro-oncology and neurosurgery at [facility]. Patient otherwise still confused and unable to provide any history. Denied fever or chills. No nausea vomiting or diarrhea. CT head showed large area of large area of right frontal lobe encephalomalacia with overlying craniotomy flap are unchanged. No acute intracranial abnormality is seen. EKG showed sinus tachycardia. Review of Systems Patient cannot provide any history at this time. Complete review of systems could not be obtained. 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 Past Anesthesia/Blood Transfusion Reactions: Postoperative Nausea & Vomiting (PONV) Past Psychological History: ADD/ADHD Additional Psychological History / Comment(s): mom states special needs Smoking Status: Never smoker Past Alcohol Use History: None Reported Past Drug Use History: None Reported - Past Family History Mother Family Medical History: Thyroid Disorder Sister(s) Additional Family Medical History / Comment(s): raynauds Grandfather Family Medical History: Diabetes Mellitus Uncles Family Medical History: Diabetes Mellitus Medications and Allergies Home Medications Medication Instructions Recorded Confirmed Type Albuterol Inhaler [Ventolin Hfa 2 puff INHALATION RT-Q4H PRN 02/19/16 09/12/18 History Inhaler] Albuterol Nebulized [Ventolin 2.5 mg INHALATION RT-QID PRN 02/19/16 09/12/18 History Nebulized] Docusate [Colace] 100 mg PO BID 02/19/16 09/12/18 History Fluticasone Nasal [place] [Flonase 1 spray EA NOSTRIL BID 02/19/16 09/12/18 History Nasal [place]] Ipratropium Nebulized [Atrovent 0.5 mg INHALATION RT-QID PRN 02/19/16 09/12/18 History Nebulized 0.2 MG/ML] LORazepam [Ativan] 1 mg PO TID PRN 02/19/16 09/12/18 History Lacosamide [Vimpat] 200 mg PO BID 02/19/16 09/12/18 History Loratadine [Claritin] 10 mg PO DAILY 02/19/16 09/12/18 History Methylphenidate HCl [Concerta] 54 mg PO DAILY 02/19/16 09/12/18 History Norelgestromin/Ethin.estradiol 1 patch TRANSDERM MOELLER 02/19/16 09/12/18 History [Xulane Patch] Omeprazole [PriLOSEC] 20 mg PO HS 02/19/16 09/12/18 History clonazePAM [Clonazepam] 2 mg PO DAILY PRN 02/19/16 09/12/18 History lamoTRIgine [LaMICtal] 150 mg PO BID 02/19/16 09/12/18 History Ibuprofen [Motrin] 800 mg PO Q8HR PRN #20 tab 05/11/16 09/12/18 Rx Ipratropium [place] [Atrovent Hfa] 2 puff INHALATION RT-QID PRN 05/11/16 09/12/18 History Levothyroxine Sodium [Synthroid] 175 mcg PO DAILY 05/11/16 09/12/18 History risperiDONE [RisperDAL] 2 mg PO BID 05/11/16 09/12/18 History Aspirin EC [Ecotrin Low Dose] 81 mg PO DAILY 08/17/16 09/12/18 History Insulin Glargine,Hum.rec.anlog 26 unit SQ HS 08/17/16 09/12/18 History [Lantus Solostar] Somatropin [Norditropin Flexpro] 0.7 mg SQ HS 08/17/16 09/12/18 History EPINEPHrine [Epipen 2-Meek] 0.3 mg IM ONCE PRN #1 pack 07/03/18 09/12/18 Rx Insulin Lispro [Admelog] See Protocol SQ AC-TID 09/12/18 09/12/18 History lamoTRIgine [LaMICtal] 25 mg PO BID 09/12/18 09/12/18 History Allergies Allergy/AdvReac Type Severity Reaction Status Date / Time acetaminophen [From [place]] Allergy Unknown Verified 09/12/18 14:03 cefuroxime Allergy Rash/Hives Verified 09/12/18 14:03 hydrocodone [From [place]] Allergy Unknown Verified 09/12/18 14:03 latex Allergy Swelling Verified 09/12/18 14:03 nifedipine [From Procardia] Allergy Unknown Verified 09/12/18 14:03 shrimp Allergy Swelling Verified 09/12/18 14:03 gabapentin AdvReac altered Verified 09/12/18 14:03 mental status hydromorphone [From Dilaudid] AdvReac Chest Pain Verified 09/12/18 14:03 levetiracetam [From Keppra] AdvReac Toxic Verified 09/12/18 14:03 Levels metoclopramide [From Reglan] AdvReac [place] Verified 09/12/18 14:03 Seizure pentamidine isethionate AdvReac Severe Pain Verified 09/12/18 14:03 pregabalin [From Lyrica] AdvReac Altered Verified 09/12/18 14:03 Mental Status Physical Exam Vitals: Vital Signs Temp Pulse Pulse Resp BP BP Pulse Ox 09/13/18 08:59 97.6 F 51 L 16 102/62 96 09/13/18 04:06 97.8 F 78 20 125/84 95 09/12/18 20:18 98.2 F 61 16 148/95 96 09/12/18 20:04 98.2 F 69 20 148/95 94 L 09/12/18 19:05 98.5 F 66 16 151/91 95 09/12/18 13:06 98.2 F 88 20 133/74 96 Intake and Output 09/12/18 09/13/18 09/13/18 22:59 06:59 14:59 Other: # Voids 2 PHYSICAL EXAMINATION: Patient is lying in the bed comfortably, no acute distress, awake alert but seems to be confused and lethargic... HEENT: Normocephalic. Neck is supple. Pupils reactive. Nostrils clear. Oral cavity is moist. Ears reveal no drainage. Neck reveals no JVD, carotid bruits, or thyromegaly. CHEST EXAMINATION: Trachea is central. Symmetrical expansion. Lung simmons clear to auscultation and percussion. CARDIAC: Normal S1, S2 with no gallops. No murmurs ABDOMEN: Soft. Bowel sounds normal. No organomegaly. No abdominal bruits. Extremities: reveal no edema. No clubbing or cyanosis Neurologically awake, alert,, able to move all her extremities. No focal deficits noted Skin: No rash or skin lesions. Psychiatric: Could not be assessed. Musculoskeletal: No joint swelling or deformity. Results CBC & Chem 7: 09/12/18 15:30 09/12/18 15:30 Labs: Abnormal Lab Results - Last 24 Hours (Table) 09/12/18 09/12/18 09/12/18 Range/Units 15:30 15:30 15:42 RBC 3.66 L (3.80-5.40) m/uL Hgb 10.4 L (11.4-16.0) gm/dL Hct 32.2 L (34.0-46.0) % Chloride 110 H (98-107) mmol/L Glucose 107 H (74-99) mg/dL POC Glucose (mg/dL) 113 H (75-99) mg/dL AST 40 H (14-36) U/L Total Protein 6.2 L (6.3-8.2) g/dL 09/12/18 09/13/18 Range/Units 22:28 06:34 RBC (3.80-5.40) m/uL Hgb (11.4-16.0) gm/dL Hct (34.0-46.0) % Chloride (98-107) mmol/L Glucose (74-99) mg/dL POC Glucose (mg/dL) 252 H 190 H (75-99) mg/dL AST (14-36) U/L Total Protein (6.3-8.2) g/dL Thrombosis Risk Factor Assmnt - DVT/VTE Prophylaxis DVT/VTE Prophylaxis: Pharmacologic Prophylaxis ordered - Choose All That Apply Each Factor Represents 1 point: Obesity (BMI >25) Other congenital or acquired thrombophilia - If yes, enter type in comment: No Thrombosis Risk Factor Assessment Total Risk Factor Score: 1 Thrombosis Risk Factor Assessment Level: Low Risk Assessment and Plan Assessment: Altered mental status. Etiology unknown at this time. CT showed no new changes. Glioblastoma multiformae diagnosed about 15 years ago. Seizure disorder secondary to above Diabetes type 2 insulin-dependent Fibromyalgia Hypothyroidism Mild intermittent asthma. 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 ADD/ADHD DVT prophylaxis Plan: patient be continued on home dose of antiepileptic drugs. Continue with seizure precautions and fall precautions. Current with supportive care. Discussed with her caregiver regarding transfer to [facility] to be seen by neuro oncology and neurology. Since that CT did not show any new changes, she wants to keep the patient here and is trying to reach her neurologist where telephone. Possible transfer to tertiary care facility if any new changes. Continue the current management now and home medications. Prognosis is guarded. Discussed with her caregiver at bedside in detail. Neurology has seen the patient. Time with Patient: Greater than 30
--- NOTE | 2018-09-21 18:49 | P.DS ---
Providers Date of admission: 09/13/18 09:07 Expected date of discharge: 09/14/18 Attending physician: Pramod Huang MD Consults: 09/12/18 17:43 Consult Physician Routine Consulting Provider: Dyan Ribeiro Consult Reason/Comments: seizure, hx of glioblastoma, ataxia Do you want consulting provider notified?: Yes Primary care physician: Oumar Ramírez [facility] Hospital Course: Hospital course Altered mental status. Etiology unknown at this time. CT showed no new changes. Patient is awake alert oriented 3 today. Glioblastoma multiformae diagnosed about 15 years ago. Seizure disorder secondary to above Diabetes type 2 insulin-dependent Fibromyalgia Hypothyroidism Mild intermittent asthma. 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 ADD/ADHD DVT prophylaxis Hospital course Patient is a 23-year-old female with a known history of glioblastoma diagnosed 15 years ago came to ER as a complaints of headache and mental status changes. Patient was brought by her work manager. Patient was noted to have signs of slurred speech and ataxia approximately 1 hour prior to arrival. Patient had this episode was previously but have been occurring more frequently. Windshield Wiper Repairer called her physician and was told to come to ER for evaluation. Denied any seizures. Patient usually follows with neuro-oncology and neurosurgery at [facility]. Patient otherwise still confused and unable to provide any history. Denied fever or chills. No nausea vomiting or diarrhea. CT head showed large area of large area of right frontal lobe encephalomalacia with overlying craniotomy flap are unchanged. No acute intracranial abnormality is seen. EKG showed sinus tachycardia. patient was continued on home dose of antiepileptic drugs. Continue with seizure precautions and fall precautions. Current with supportive care. Discussed with her caregiver regarding transfer to [facility] to be seen by neuro oncology and neurology. Since that CT did not show any new changes, she wants to keep the patient here and is trying to reach her neurologist where telephone. Possible transfer to tertiary care facility if any new changes. Discussed with her caregiver at bedside in detail. Neurology has seen the patient. No new changes at this time. patient is otherwise awake alert oriented 3 today. Able to sit in the chair comfortably. Hemodynamically stable. Possible discharge home and follow with her neurologist at [facility]. Discharge physical examination was done and vitals reviewed. Vital Signs Temp 97.4 F L 09/14/18 08:17 Pulse 66 09/14/18 08:17 Resp 16 09/14/18 08:17 BP 133/71 09/14/18 08:17 Pulse Ox 100 09/14/18 08:17 Intake & Output 09/13/18 09/14/18 09/14/18 18:59 06:59 18:59 Intake Total 660 Output Total 300 400 Balance 360 -400 Intake: Intake, IV Titration 160 Amount Sodium [place] 0.9% 1, 160 000 ml @ 20 mls/hr IV . Q24H [facility] Rx#:[id number] Oral 500 Output: Urine 300 400 Other: # Voids 1 1 Patient Condition at Discharge: Good Plan - Discharge Summary New Discharge Prescriptions: Continue Omeprazole [PriLOSEC] 20 mg PO HS Methylphenidate HCl [Concerta] 54 mg PO DAILY LORazepam [Ativan] 1 mg PO TID PRN PRN Reason: Seizures lamoTRIgine [LaMICtal] 150 mg PO BID Loratadine [Claritin] 10 mg PO DAILY Lacosamide [Vimpat] 200 mg PO BID Fluticasone Nasal [place] [Flonase Nasal [place]] 1 spray EA NOSTRIL BID Norelgestromin/Ethin.estradiol [Xulane Patch] 1 patch TRANSDERM MOELLER clonazePAM [Clonazepam] 2 mg PO DAILY PRN PRN Reason: seizures >3 minutes Docusate [Colace] 100 mg PO BID Albuterol Inhaler [Ventolin Hfa Inhaler] 2 puff INHALATION RT-Q4H PRN PRN Reason: Dyspnea Ipratropium Nebulized [Atrovent Nebulized 0.2 MG/ML] 0.5 mg INHALATION RT-QID PRN PRN Reason: Dyspnea Albuterol Nebulized [Ventolin Nebulized] 2.5 mg INHALATION RT-QID PRN PRN Reason: Dyspnea Levothyroxine Sodium [Synthroid] 175 mcg PO DAILY Ipratropium [place] [Atrovent Hfa] 2 puff INHALATION RT-QID PRN PRN Reason: Dyspnea risperiDONE [RisperDAL] 2 mg PO BID Ibuprofen [Motrin] 800 mg PO Q8HR PRN #20 tab PRN Reason: Pain Somatropin [Norditropin Flexpro] 0.7 mg SQ HS Insulin Glargine,Hum.rec.anlog [Lantus Solostar] 26 unit SQ HS Aspirin EC [Ecotrin Low Dose] 81 mg PO DAILY EPINEPHrine [Epipen 2-Meek] 0.3 mg IM ONCE PRN #1 pack PRN Reason: Anaphylaxis Insulin Lispro [Admelog] See Protocol SQ AC-TID lamoTRIgine [LaMICtal] 25 mg PO BID Discharge Medication List Albuterol Inhaler [Ventolin Hfa Inhaler] 2 puff INHALATION RT-Q4H PRN 02/19/16 [History] Albuterol Nebulized [Ventolin Nebulized] 2.5 mg INHALATION RT-QID PRN 02/19/16 [History] Docusate [Colace] 100 mg PO BID 02/19/16 [History] Fluticasone Nasal [place] [Flonase Nasal [place]] 1 spray EA NOSTRIL BID 02/19/16 [History] Ipratropium Nebulized [Atrovent Nebulized 0.2 MG/ML] 0.5 mg INHALATION RT-QID PRN 02/19/16 [History] LORazepam [Ativan] 1 mg PO TID PRN 02/19/16 [History] Lacosamide [Vimpat] 200 mg PO BID 02/19/16 [History] Loratadine [Claritin] 10 mg PO DAILY 02/19/16 [History] Methylphenidate HCl [Concerta] 54 mg PO DAILY 02/19/16 [History] Norelgestromin/Ethin.estradiol [Xulane Patch] 1 patch TRANSDERM MOELLER 02/19/16 [History] Omeprazole [PriLOSEC] 20 mg PO HS 02/19/16 [History] clonazePAM [Clonazepam] 2 mg PO DAILY PRN 02/19/16 [History] lamoTRIgine [LaMICtal] 150 mg PO BID 02/19/16 [History] Ibuprofen [Motrin] 800 mg PO Q8HR PRN #20 tab 05/11/16 [Rx] Ipratropium [place] [Atrovent Hfa] 2 puff INHALATION RT-QID PRN 05/11/16 [History] Levothyroxine Sodium [Synthroid] 175 mcg PO DAILY 05/11/16 [History] risperiDONE [RisperDAL] 2 mg PO BID 05/11/16 [History] Aspirin EC [Ecotrin Low Dose] 81 mg PO DAILY 08/17/16 [History] Insulin Glargine,Hum.rec.anlog [Lantus Solostar] 26 unit SQ HS 08/17/16 [History] Somatropin [Norditropin Flexpro] 0.7 mg SQ HS 08/17/16 [History] EPINEPHrine [Epipen 2-Meek] 0.3 mg IM ONCE PRN #1 pack 07/03/18 [Rx] Insulin Lispro [Admelog] See Protocol SQ AC-TID 09/12/18 [History] lamoTRIgine [LaMICtal] 25 mg PO BID 09/12/18 [History] Follow up Appointment(s)/Referral(s): Oumar Ramírez MD [Primary Care Provider] - 1-2 days Patient Instructions/Handouts: Epilepsy (GEN), Dizziness (GEN) Care Plan Goals (MU): Follow Up with your provider/specialist as planned. Discharge Disposition: HOME SELF-CARE
== END 2018-09-14 14:34 | disposition home or self-care (01) ==
LOC: EC 13:02 → 6PED 17:43 → OBSVTOIN 09-13 09:07 → INTOOBSV 09-13 09:07 → UNDODISIN 09-14 14:34
PROVIDERS: ADMIT Internal Medicine; ATTEND Internal Medicine
DX: R41.82 Altered mental status, unspecified (principal); R51 Headache; R27.0 Ataxia, unspecified; R47.81 Slurred speech; G40.909 Epilepsy, unspecified, not intractable, without status epilepticus; G81.94 Hemiplegia, unspecified affecting left nondominant side; I66.09 Occlusion and stenosis of unspecified middle cerebral artery; J84.10 Pulmonary fibrosis, unspecified; E11.40 Type 2 diabetes mellitus with diabetic neuropathy, unspecified; I65.29 Occlusion and stenosis of unspecified carotid artery; F90.9 Attention-deficit hyperactivity disorder, unspecified type; H54.61 Unqualified visual loss, right eye, normal vision left eye; H91.90 Unspecified hearing loss, unspecified ear; I73.00 Raynaud's syndrome without gangrene; K21.9 Gastro-esophageal reflux disease without esophagitis; M79.7 Fibromyalgia; E03.9 Hypothyroidism, unspecified; G90.1 Familial dysautonomia [Riley-Day]; J45.20 Mild intermittent asthma, uncomplicated; E66.9 Obesity, unspecified; Z68.38 Body mass index [BMI] 38.0-38.9, adult; Z79.82 Long term (current) use of aspirin; Z79.890 Hormone replacement therapy; Z79.899 Other long term (current) drug therapy; Z79.4 Long term (current) use of insulin; Z85.841 Personal history of malignant neoplasm of brain; Z90.49 Acquired absence of other specified parts of digestive tract; Z88.2 Allergy status to sulfonamides; Z88.8 Allergy status to other drugs, medicaments and biological substances; Z88.6 Allergy status to analgesic agent; Z88.1 Allergy status to other antibiotic agents; Z91.040 Latex allergy status; Z88.5 Allergy status to narcotic agent; Z91.013 Allergy to seafood; Z83.3 Family history of diabetes mellitus; Z83.49 Family history of other endocrine, nutritional and metabolic diseases
CPT/HCPCS: 96375; 96361; 96374; 99285; 36415; 93005; 80053; 80175 ×2; 85025; 80339; 83520; 70450; G0378 ×4; G0480 ×2; J1100; J2405; 80320; 80329; 96360

== ENCOUNTER 2018-10-26 00:41 | Emergency (ER) | payer OTHER ==
[2018-10-26 01:09] VITALS: TEMP 98.2
--- NOTE | 2018-10-26 02:22 | XR ---
EXAM: XR Left Tibia and Fibula, 2 Views CLINICAL HISTORY: ITS.REASON XR Reason: Pain TECHNIQUE: Frontal and lateral views of the left tibia and fibula. COMPARISON: No relevant prior studies available. FINDINGS: Bones/joints: Unremarkable. No acute fracture. No dislocation. Soft tissues: Unremarkable. No radiopaque foreign body. IMPRESSION: Normal left tibia and fibula x-rays.
--- NOTE | 2018-10-26 02:23 | XR ---
EXAM: XR Right Forearm, 2 Views CLINICAL HISTORY: ITS.REASON XR Reason: Pain TECHNIQUE: Frontal and lateral views of the right forearm. COMPARISON: No relevant prior studies available. FINDINGS: Bones/joints: Unremarkable. No acute fracture. No dislocation. Soft tissues: Unremarkable. IMPRESSION: Normal right forearm x-rays.
--- NOTE | 2018-10-26 02:31 | ED ---
Fall HPI - General Chief Complaint: Fall Stated Complaint: fall-knee/ankle pain Time Seen by Provider: 10/26/18 01:12 Source: family Mode of arrival: wheelchair - History of Present Illness MD Complaint: fall -: hour(s) Fall From: standing When Fall Occurred: 1-[address] Fall Occurred: home Loss of Consciousness: none Prolonged Down Time?: no Symptoms Prior to Fall: none Severity: moderate Quality: aching - Related Data Home Medications Medication Instructions Recorded Confirmed Albuterol Inhaler [Ventolin Hfa 2 puff INHALATION RT-Q4H PRN 02/19/16 10/26/18 Inhaler] Albuterol Nebulized [Ventolin 2.5 mg INHALATION RT-QID PRN 02/19/16 10/26/18 Nebulized] Docusate [Colace] 100 mg PO BID 02/19/16 10/26/18 Fluticasone Nasal [place] [Flonase 1 spray EA NOSTRIL BID 02/19/16 10/26/18 Nasal [place]] Ipratropium Nebulized [Atrovent 0.5 mg INHALATION RT-QID PRN 02/19/16 10/26/18 Nebulized 0.2 MG/ML] LORazepam [Ativan] 1 mg PO TID PRN 02/19/16 10/26/18 Lacosamide [Vimpat] 200 mg PO BID 02/19/16 10/26/18 Loratadine [Claritin] 10 mg PO DAILY 02/19/16 10/26/18 Methylphenidate HCl [Concerta] 54 mg PO DAILY 02/19/16 10/26/18 Norelgestromin/Ethin.estradiol 1 patch TRANSDERM MOELLER 02/19/16 10/26/18 [Xulane Patch] Omeprazole [PriLOSEC] 20 mg PO HS 02/19/16 10/26/18 clonazePAM [Clonazepam] 2 mg PO DAILY PRN 02/19/16 10/26/18 lamoTRIgine [LaMICtal] 200 mg PO BID 02/19/16 10/26/18 Ipratropium [place] [Atrovent Hfa] 2 puff INHALATION RT-QID PRN 05/11/16 10/26/18 Levothyroxine Sodium [Synthroid] 175 mcg PO DAILY 05/11/16 10/26/18 risperiDONE [RisperDAL] 2 mg PO BID 05/11/16 10/26/18 Aspirin EC [Ecotrin Low Dose] 81 mg PO DAILY 08/17/16 10/26/18 Insulin Glargine,Hum.rec.anlog 26 unit SQ HS 08/17/16 10/26/18 [Lantus Solostar] Somatropin [Norditropin Flexpro] 0.7 mg SQ HS 08/17/16 10/26/18 Insulin Lispro [Admelog] See Protocol SQ AC-TID 09/12/18 10/26/18 Previous Rx's Medication Instructions Recorded Ibuprofen [Motrin] 800 mg PO Q8HR PRN #20 tab 05/11/16 EPINEPHrine [Epipen 2-Meek] 0.3 mg IM ONCE PRN #1 pack 07/03/18 Allergies Allergy/AdvReac Type Severity Reaction Status Date / Time acetaminophen [From [place]] Allergy Unknown Verified 09/12/18 14:03 cefuroxime Allergy Rash/Hives Verified 09/12/18 14:03 hydrocodone [From [place]] Allergy Unknown Verified 09/12/18 14:03 latex Allergy Swelling Verified 09/12/18 14:03 nifedipine [From Procardia] Allergy Unknown Verified 09/12/18 14:03 shrimp Allergy Swelling Verified 09/12/18 14:03 gabapentin AdvReac altered Verified 09/12/18 14:03 mental status hydromorphone [From Dilaudid] AdvReac Chest Pain Verified 09/12/18 14:03 levetiracetam [From Keppra] AdvReac Toxic Verified 09/12/18 14:03 Levels metoclopramide [From Reglan] AdvReac [place] Verified 09/12/18 14:03 Seizure pentamidine isethionate AdvReac Severe Pain Verified 09/12/18 14:03 pregabalin [From Lyrica] AdvReac Altered Verified 09/12/18 14:03 Mental Status Review of Systems ROS Statement: Those systems with pertinent positive or pertinent negative responses have been documented in the HPI. ROS Other: All systems not noted in ROS Statement are negative. 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 Past Anesthesia/Blood Transfusion Reactions: Postoperative Nausea & Vomiting (PONV) Past Psychological History: ADD/ADHD Smoking Status: Never smoker Past Alcohol Use History: None Reported Past Drug Use History: None Reported - Past Family History Mother Family Medical History: Thyroid Disorder Sister(s) Additional Family Medical History / Comment(s): raynauds Grandfather Family Medical History: Diabetes Mellitus Uncles Family Medical History: Diabetes Mellitus General Exam Limitations: no limitations General appearance: alert, in no apparent distress Head exam: Present: atraumatic, normocephalic Eye exam: Present: normal appearance. Absent: PERRL Neck exam: Present: normal inspection, full ROM. Absent: tenderness Respiratory exam: Present: normal lung sounds bilaterally. Absent: respiratory distress, wheezes, rales, rhonchi, stridor, chest wall tenderness Cardiovascular Exam: Present: regular rate, normal rhythm, normal heart sounds. Absent: systolic murmur, diastolic murmur, rubs, gallop GI/Abdominal exam: Present: soft. Absent: distended, tenderness, guarding, rebound Extremities exam: Present: tenderness (At the hip and near the ankle.), normal capillary refill. Absent: calf tenderness Back exam: Present: normal inspection. Absent: CVA tenderness (R), CVA tenderness (L), vertebral tenderness Neurological exam: Present: alert, CN II-XII intact Skin exam: Present: warm, dry, intact, normal color. Absent: rash Course Vital Signs 10/26/18 10/26/18 01:05 02:50 Temperature 98.2 F 98.2 F Pulse Rate 108 H 81 Respiratory 20 18 Rate Blood Pressure 118/76 138/85 O2 Sat by Pulse 97 96 Oximetry Disposition Clinical Impression: Fall, Ankle injury Disposition: HOME SELF-CARE Condition: Good Instructions (If sedation given, give patient instructions): Ankle Sprain (DC) Is patient prescribed a controlled substance at d/c from ED?: No Referrals: Oumar Ramírez MD [Primary Care Provider] - 1-2 days
[2018-10-26] MEDS ORDERED: IBUPROFEN 400 MG TAB PO STA (02:42)
[2018-10-26 02:55] VITALS: BP 138/85; PULSE 81; RESP 18
--- NOTE | 2018-10-26 03:35 | XR ---
EXAM: XR Left Hip With Pelvis When Performed, 2 or 3 Views CLINICAL HISTORY: ITS.REASON XR Reason: Pain TECHNIQUE: Two or three views of the left hip, with pelvis when performed. COMPARISON: No relevant prior studies available. FINDINGS: Bones/joints: Unremarkable. No acute fracture. No dislocation. Soft tissues: Unremarkable. IMPRESSION: Normal left hip x-rays. If still concerned for occult fracture, consider MRI.
== END 2018-10-26 03:50 | disposition home or self-care (01) ==
LOC: EC 00:41
DX: S99.912A Unspecified injury of left ankle, initial encounter (principal); J45.909 Unspecified asthma, uncomplicated; E11.40 Type 2 diabetes mellitus with diabetic neuropathy, unspecified; K21.9 Gastro-esophageal reflux disease without esophagitis; G40.909 Epilepsy, unspecified, not intractable, without status epilepticus; E07.9 Disorder of thyroid, unspecified; G81.94 Hemiplegia, unspecified affecting left nondominant side; H54.61 Unqualified visual loss, right eye, normal vision left eye; H91.90 Unspecified hearing loss, unspecified ear; F90.9 Attention-deficit hyperactivity disorder, unspecified type; Z88.1 Allergy status to other antibiotic agents; Z88.5 Allergy status to narcotic agent; Z88.6 Allergy status to analgesic agent; Z88.8 Allergy status to other drugs, medicaments and biological substances; Z91.013 Allergy to seafood; Z91.040 Latex allergy status; Z79.3 Long term (current) use of hormonal contraceptives; Z79.4 Long term (current) use of insulin; Z79.51 Long term (current) use of inhaled steroids; Z79.82 Long term (current) use of aspirin; Z79.890 Hormone replacement therapy; Z79.899 Other long term (current) drug therapy; Z85.841 Personal history of malignant neoplasm of brain; Z98.890 Other specified postprocedural states; W06.XXXA Fall from bed, initial encounter; Y92.009 Unspecified place in unspecified non-institutional (private) residence as the place of occurrence of the external cause
CPT/HCPCS: 73502; 99283

== ENCOUNTER → 2019-03-01 | Outpatient (CLI) | payer OTHER ==
--- NOTE | 2019-03-01 14:42 | US ---
EXAMINATION TYPE: US thyroid st tissue head/neck DATE OF EXAM: 03/01/2019 COMPARISON: NONE CLINICAL HISTORY: R22.1 Swelling,mass,lump,neck. History of glioblastoma at age 5, patient states lef t greater than right neck swelling Within the right neck, there are two probable lymph nodes visualized, largest measuring 1.8 x 0.8 x 1 .1 cm. Within the left neck, there is one possible lymph node visualized measuring 1.2 x 0.4 x 0.5 cm . IMPRESSION: 1. Suspected lymphadenopathy within the right neck
== END | disposition home or self-care (01) ==
LOC: EEVIPCON 13:40 → RADUSWWP 13:41
PROVIDERS: ATTEND Family Medicine
DX: R22.1 Localized swelling, mass and lump, neck (principal)
CPT/HCPCS: 76536

== ENCOUNTER → 2019-07-04 | Outpatient (CLI) | payer OTHER | END | disposition home or self-care (01) | LOC: LABWHC1 12:41 | PROVIDERS: ATTEND Otolaryngology Plastic Surgery within the Head & Neck | DX: Z03.818 Encounter for observation for suspected exposure to other biological agents ruled out (principal) | CPT/HCPCS: 87635 ==

== ENCOUNTER 2019-07-06 09:06 | Day surgery (SDC) | payer OTHER ==
[2019-07-06 09:22] VITALS: RESP 20; TEMP 97.7
[2019-07-06 09:44] LABS: Glucose,Whole Blood 192 mg/dL (75-99)
[2019-07-06 11:02] VITALS: BP 138/80; PULSE 102
--- NOTE | 2019-07-06 11:45 | US ---
ULTRASOUND GUIDED CORE BIOPSY RIGHT NECK LYMPH NODE: CLINICAL HISTORY: Glioblastoma with large right left lymph node FINDINGS: The procedure was explained to the patient. The risks, complications, benefits and alternatives were discussed and any questions were answered. Informed consent was obtained. Patient was placed supin e on the ultrasound table and prepped and draped in the usual sterile fashion. Utilizing a 18-gauge needle, single pass was made into the right neck lymph node. The patient could only tolerate a singl e pass and biopsy sample. Patient was stable throughout the procedure. Pathology is pending. All elements of maximal barrier and sterile technique were utilized. IMPRESSION: 1. Successful ultrasound guided core biopsy right neck lymph node.
== END 2019-07-06 10:45 | disposition home or self-care (01) ==
LOC: RADPROMAIN 09:06
PROVIDERS: ATTEND Otolaryngology Plastic Surgery within the Head & Neck
DX: R59.0 Localized enlarged lymph nodes (principal); C71.9 Malignant neoplasm of brain, unspecified
CPT/HCPCS: 38505; 76942; 88305

== ENCOUNTER 2019-09-20 16:56 | Emergency (ER) | payer OTHER ==
[2019-09-20 17:04] VITALS: RESP 18; TEMP 98.2
[2019-09-20] MEDS ORDERED: SODIUM CHLORIDE 0.9% 500 ML 500 ML IV STA (17:32)
[2019-09-20 18:00] LABS: ALT 25 U/L (4-34); AST 28 U/L (14-36); African American GFR (CKD) >90 (>60 ml/min/1.73 sqM); Alkaline Phosphatase 96 U/L (38-126); Anion Gap 7 mmol/L; Basophils % (A) 0 %; Blood Urea Nitrogen 16 mg/dL (7-17); Calcium 9.4 mg/dL (8.4-10.2); Carbon Dioxide 28 mmol/L (22-30); Chloride 104 mmol/L (98-107); Eosinophils # (A) 0.1 k/uL (0-0.7); Eosinophils % (A) 1 %; Glucose 252 mg/dL (74-99); HCT 34.7 % (34.0-46.0); HGB 11.6 gm/dL (11.4-16.0); Lymphocytes # (A) 3.4 k/uL (1.0-4.8); Lymphocytes % (A) 37 %; MCHC 33.6 g/dL (31.0-37.0); MCV 89.5 fL (80.0-100.0); Mean Platelet Volume 7.5; Monocytes # (A) 0.4 k/uL (0-1.0); Monocytes % (A) 4 %; Neutrophils # (A) 5.2 k/uL (1.3-7.7); Neutrophils % (A) 57 %; Non-African American GFR(CKD) >90 (>60 ml/min/1.73 sqM); Platelet Count 237 k/uL (150-450); RBC 3.88 m/uL (3.80-5.40); RDW 13.2 % (11.5-15.5); Sodium 139 mmol/L (137-145); Total Bilirubin 0.3 mg/dL (0.2-1.3); Total Protein 6.8 g/dL (6.3-8.2); WBC 9.2 k/uL (3.8-10.6)
--- NOTE | 2019-09-20 18:30 | XR ---
EXAMINATION TYPE: XR chest 2V DATE OF EXAM: 09/20/2019 COMPARISON: Prior chest x-ray 07/03/2018 HISTORY: Hypertension, chest pain TECHNIQUE: Frontal and lateral views of the chest are obtained. FINDINGS: Patient is rotated. There is no focal air space opacity, pleural effusion, or pneumothorax seen. The cardiac silhouette size is within normal limits. The osseous structures are intact. IMPRESSION: No acute cardiopulmonary process.
[2019-09-20] MEDS ORDERED: LORazepam 2 MG/ML INJ IV STA (18:32)
[2019-09-20 18:41] LABS: Appearance,Urine Clear (Clear); Bacteria,Urine Rare /hpf; Bilirubin,Urine Negative (Negative); Blood,Urine Negative (Negative); Color,Urine Yellow; Glucose,Urine (UA) Trace (Negative); Ketones,Urine Negative (Negative); Leukocyte Esterase,Urine Negative (Negative); Mucus,Urine Rare /hpf; Nitrite,Urine Negative (Negative); PH, Urine 6.5 (5.0-8.0); Protein,Urine 1+ (Negative); RBC,Urine 1 /hpf (0-5); Specific Gravity,Urine 1.021 (1.001-1.035); Squamous Epithelial Cell,Urine 2 /hpf (0-4); Urobilinogen,Urine <2.0 mg/dL (<2.0); WBC,Urine 1 /hpf (0-5)
[2019-09-20 19:04] VITALS: BP 152/74; PULSE 77
--- NOTE | 2019-09-20 19:05 | ED ---
General Adult HPI - General Chief complaint: Recheck/Abnormal Lab/Rx Stated complaint: High blood pressure,chest pain Time Seen by Provider: 09/20/19 17:05 Source: patient, RN notes reviewed, old records reviewed Mode of arrival: wheelchair Limitations: no limitations - History of Present Illness Initial comments: 24-year-old female patient with extensive past medical history presents ED for evaluation of hypertension. 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 A 2 diabetes. Due to ch emotherapy and external beam radiation patient also has pulmonary fibrosis, is on supplemental steroids due to adrenal insufficiency as well as Synthroid. Mother reports that they had previously increased her steroids however her blood pressure has been high so they have not been decreasing them. Forced the patient's blood pressure has been ranging in the 160s to 170s/100. Patient reports that she is also given feeling as if her heart is beating too fast and that she is having some chest pain shortness of breath the last 2 days. Denies any headache or changes in vision. Denies any other complaints. Systemic: Pt denies fatigue, fever/chills, rash. Pt denies weakness, night sweats, weight loss. Neuro: Pt denies headache, visual disturbances, syncope or pre-syncope. HEENT: Pt denies ocular discharge or irritation, otalgia, rhinorrhea, pharyngitis or notable lymphadenopathy. Cardiopulmonary: Pt denies chest pain, SOB, heart palpitations, dyspnea on exertion. Abdominal/GI: Pt denies abdominal pain, n/v/d. : Pt denies dysuria, burning w/ urination, frequency/urgency. Denies new onset urinary or bowel incontinence. MSK: Pt denies myalgia, loss of strength or function in extremities. Neuro: Pt denies new onset weakness, paresthesias. - Related Data Home Medications Medication Instructions Recorded Confirmed Albuterol Inhaler (Mhu) [Ventolin 2 puff INHALATION RT-Q4H PRN 02/19/16 07/06/19 Hfa Inhaler (Mhu)] Albuterol Nebulized [Ventolin 2.5 mg INHALATION RT-QID PRN 02/19/16 07/06/19 Nebulized] Docusate [Colace] 100 mg PO BID 02/19/16 07/06/19 Fluticasone Nasal [place] [Flonase 1 spray EA NOSTRIL BID 02/19/16 07/06/19 Nasal [place]] Ipratropium Nebulized [Atrovent 0.5 mg INHALATION RT-QID PRN 02/19/16 07/06/19 Nebulized 0.2 MG/ML] LORazepam [Ativan] 1 mg PO TID PRN 02/19/16 07/06/19 Lacosamide [Vimpat] 200 mg PO BID 02/19/16 07/06/19 Loratadine [Claritin] 10 mg PO DAILY 02/19/16 07/06/19 Methylphenidate HCl [Concerta] 54 mg PO DAILY 02/19/16 07/06/19 Norelgestromin/Ethin.estradiol 1 patch TRANSDERM MOELLER 02/19/16 07/06/19 [Xulane Patch] Omeprazole [PriLOSEC] 20 mg PO HS 02/19/16 07/06/19 clonazePAM [Clonazepam] 2 mg PO DAILY PRN 02/19/16 07/06/19 lamoTRIgine [LaMICtal] 200 mg PO BID 02/19/16 07/06/19 Ipratropium [place] [Atrovent Hfa] 2 puff INHALATION RT-QID PRN 05/11/16 07/06/19 Levothyroxine Sodium [Synthroid] 175 mcg PO DAILY 05/11/16 07/06/19 risperiDONE [RisperDAL] 2 mg PO BID 05/11/16 07/06/19 Aspirin EC [Ecotrin Low Dose] 81 mg PO DAILY 08/17/16 07/06/19 Somatropin [Norditropin Flexpro] 0.5 mg SQ HS 08/17/16 07/06/19 Insulin Lispro [Admelog] See Protocol SQ AC-TID 09/12/18 07/06/19 Insulin Glargine,Hum.rec.anlog 26 unit SQ HS 06/28/19 07/06/19 [Basaglar Kwikpen U-100] Mometasone/Formoterol [Dulera 200 2 puff INHALATION DAILY 06/28/19 07/06/19 Mcg/5 Mcg Inhaler] Previous Rx's Medication Instructions Recorded Ibuprofen [Motrin] 800 mg PO Q8HR PRN #20 tab 05/11/16 EPINEPHrine [Epipen 2-Meek] 0.3 mg IM ONCE PRN #1 pack 07/03/18 Allergies Allergy/AdvReac Type Severity Reaction Status Date / Time cefuroxime Allergy Rash/Hives Verified 09/20/19 17:04 latex Allergy Swelling Verified 09/20/19 17:04 nifedipine [From Procardia] Allergy Unknown Verified 09/20/19 17:04 shrimp Allergy Swelling Verified 09/20/19 17:04 acetaminophen [From [place]] AdvReac Unknown Verified 09/20/19 17:04 gabapentin AdvReac altered Verified 09/20/19 17:04 mental status hydrocodone [From [place]] AdvReac Unknown Verified 09/20/19 17:04 hydromorphone [From Dilaudid] AdvReac Chest Pain Verified 09/20/19 17:04 levetiracetam [From Keppra] AdvReac Toxic Verified 09/20/19 17:04 Levels metoclopramide [From Reglan] AdvReac [place] Verified 09/20/19 17:04 Seizure pentamidine isethionate AdvReac Severe Pain Verified 09/20/19 17:04 pregabalin [From Lyrica] AdvReac Altered Verified 09/20/19 17:04 Mental Status Review of Systems ROS Statement: Those systems with pertinent positive or pertinent negative responses have been documented in the HPI. ROS Other: All systems not noted in ROS Statement are negative. 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 Past Anesthesia/Blood Transfusion Reactions: Postoperative Nausea & Vomiting (PONV) Past Psychological History: ADD/ADHD Past Alcohol Use History: None Reported Past Drug Use History: None Reported - Past Family History Mother Family Medical History: Thyroid Disorder Sister(s) Additional Family Medical History / Comment(s): raynauds Grandfather Family Medical History: Diabetes Mellitus Uncles Family Medical History: Diabetes Mellitus General Exam - General Exam Comments Initial Comments: Constitutional: NAD, AOX3, Pt has pleasant affect. HEENT: NC/AT, trachea midline, neck supple, no lymphadenopathy.External ears appear normal, without discharge. Mucous membranes moist. Eyes PERRLA, EOM intact. There is no scleral icterus. No pallor noted. Cardiopulmonary: RRR, no murmurs, rubs or gallops, no JVD noted. Lungs CTAB in anterior and posterior simmons. No peripheral edema. Abdominal exam: Abdomen soft and non-distended. Abdomen non-tender to palpation in all 4 quadrants. Bowel sounds active in LLQ. No hepatosplenomegaly. No ecchymosis Neuro: CN II-XII intact. No nuchal rigidity. No raccon eyes, no ayoub sign, no hemotympanum. No cervical spinal tenderness. NIH 0. MSK: No posterior calf tenderness bilaterally, homans sign negative bilaterally. Posterior tibialis and radial pulse +2 bilaterally. Sensation intact in upper and lower extremities. Full active ROM in upper and lower extremities, 5/5 stregnth. Limitations: no limitations Course Vital Signs 09/20/19 09/20/19 09/20/19 16:59 17:04 18:04 Temperature 98.2 F Pulse Rate 83 Respiratory 18 18 18 Rate Blood Pressure 175/89 157/98 163/93 O2 Sat by Pulse 98 Oximetry 09/20/19 19:00 Temperature Pulse Rate 77 Respiratory 18 Rate Blood Pressure 152/74 O2 Sat by Pulse 99 Oximetry Medical Decision Making - Medical Decision Making 24-year-old female patient presents the for evaluation of hypertension with mother. Patient has extensive past medical history. Patient reports that she had some mild chest pain shortness of breath. Patient does have a seizure diso rder as well. Patient has been taking her antiepileptics but does have breakthrough seizures every month. Patient did have a 1-2 minutes seizure in the emergency department. The self terminated. She is back to her baseline. EKG is nonischemic. Laboratory investigations are non-impressive. D-dimer is negative. Neurologic exam is intact. Blood pressure is reasonable controlled in department. Patient discharged will follow-up with her primary care provider and shoe stock associate return to ER if condition worsens. Case discussed with Dr. Calix. - Lab Data Result diagrams: 09/20/19 17:40 09/20/19 17:40 Lab Results 09/20/19 09/20/19 09/20/19 Range/Units 17:40 17:40 17:40 WBC 9.2 (3.8-10.6) k/uL RBC 3.88 (3.80-5.40) m/uL Hgb 11.6 (11.4-16.0) gm/dL Hct 34.7 (34.0-46.0) % MCV 89.5 (80.0-100.0) fL MCH 30.0 (25.0-35.0) pg MCHC 33.6 (31.0-37.0) g/dL RDW 13.2 (11.5-15.5) % Plt Count 237 (150-450) k/uL Neutrophils % 57 % Lymphocytes % 37 % Monocytes % 4 % Eosinophils % 1 % Basophils % 0 % Neutrophils # 5.2 (1.3-7.7) k/uL Lymphocytes # 3.4 (1.0-4.8) k/uL Monocytes # 0.4 (0-1.0) k/uL Eosinophils # 0.1 (0-0.7) k/uL Basophils # 0.0 (0-0.2) k/uL D-Dimer (<0.60) mg/L FEU Sodium 139 (137-145) mmol/L Potassium 4.0 (3.5-5.1) mmol/L Chloride 104 (98-107) mmol/L Carbon Dioxide 28 (22-30) mmol/L Anion Gap 7 mmol/L BUN 16 (7-17) mg/dL Creatinine 0.79 (0.52-1.04) mg/dL Est GFR (CKD-EPI)AfAm >90 (>60 ml/min/1.73 sqM) Est GFR (CKD-EPI)NonAf >90 (>60 ml/min/1.73 sqM) Glucose 252 H (74-99) mg/dL Plasma Lactic Acid Prashant (0.7-2.0) mmol/L Calcium 9.4 (8.4-10.2) mg/dL Total Bilirubin 0.3 (0.2-1.3) mg/dL AST 28 (14-36) U/L ALT 25 (4-34) U/L Alkaline Phosphatase 96 (38-126) U/L Troponin I (0.000-0.034) ng/mL Total Protein 6.8 (6.3-8.2) g/dL Albumin 4.0 (3.5-5.0) g/dL Lipase 76 (23-300) U/L Urine Color Yellow Urine Appearance Clear (Clear) Urine pH 6.5 (5.0-8.0) Ur Specific [place] 1.021 (1.001-1.035) Urine Protein 1+ H (Negative) Urine Glucose (UA) Trace H (Negative) Urine Ketones Negative (Negative) Urine Blood Negative (Negative) Urine Nitrite Negative (Negative) Urine Bilirubin Negative (Negative) Urine Urobilinogen <2.0 (<2.0) mg/dL Ur Leukocyte Esterase Negative (Negative) Urine RBC 1 (0-5) /hpf Urine WBC 1 (0-5) /hpf Ur Squamous Epith Cells 2 (0-4) /hpf Urine Bacteria Rare H (None) /hpf Urine Mucus Rare H (None) /hpf Urine HCG, Qual (Not Detectd) Acetone, Qual Negative (Negative) 09/20/19 09/20/19 09/20/19 Range/Units 17:40 17:40 18:17 WBC (3.8-10.6) k/uL RBC (3.80-5.40) m/uL Hgb (11.4-16.0) gm/dL Hct (34.0-46.0) % MCV (80.0-100.0) fL MCH (25.0-35.0) pg MCHC (31.0-37.0) g/dL RDW (11.5-15.5) % Plt Count (150-450) k/uL Neutrophils % % Lymphocytes % % Monocytes % % Eosinophils % % Basophils % % Neutrophils # (1.3-7.7) k/uL Lymphocytes # (1.0-4.8) k/uL Monocytes # (0-1.0) k/uL Eosinophils # (0-0.7) k/uL Basophils # (0-0.2) k/uL D-Dimer 0.24 (<0.60) mg/L FEU Sodium (137-145) mmol/L Potassium (3.5-5.1) mmol/L Chloride (98-107) mmol/L Carbon Dioxide (22-30) mmol/L Anion Gap mmol/L BUN (7-17) mg/dL Creatinine (0.52-1.04) mg/dL Est GFR (CKD-EPI)AfAm (>60 ml/min/1.73 sqM) Est GFR (CKD-EPI)NonAf (>60 ml/min/1.73 sqM) Glucose (74-99) mg/dL Plasma Lactic Acid Prashant (0.7-2.0) mmol/L Calcium (8.4-10.2) mg/dL Total Bilirubin (0.2-1.3) mg/dL AST (14-36) U/L ALT (4-34) U/L Alkaline Phosphatase (38-126) U/L Troponin I <0.012 (0.000-0.034) ng/mL Total Protein (6.3-8.2) g/dL Albumin (3.5-5.0) g/dL Lipase (23-300) U/L Urine Color Urine Appearance (Clear) Urine pH (5.0-8.0) Ur Specific [place] (1.001-1.035) Urine Protein (Negative) Urine Glucose (UA) (Negative) Urine Ketones (Negative) Urine Blood (Negative) Urine Nitrite (Negative) Urine Bilirubin (Negative) Urine Urobilinogen (<2.0) mg/dL Ur Leukocyte Esterase (Negative) Urine RBC (0-5) /hpf Urine WBC (0-5) /hpf Ur Squamous Epith Cells (0-4) /hpf Urine Bacteria (None) /hpf Urine Mucus (None) /hpf Urine HCG, Qual Not Detected (Not Detectd) Acetone, Qual (Negative) 09/20/19 Range/Units Unknown WBC (3.8-10.6) k/uL RBC (3.80-5.40) m/uL Hgb (11.4-16.0) gm/dL Hct (34.0-46.0) % MCV (80.0-100.0) fL MCH (25.0-35.0) pg MCHC (31.0-37.0) g/dL RDW (11.5-15.5) % Plt Count (150-450) k/uL Neutrophils % % Lymphocytes % % Monocytes % % Eosinophils % % Basophils % % Neutrophils # (1.3-7.7) k/uL Lymphocytes # (1.0-4.8) k/uL Monocytes # (0-1.0) k/uL Eosinophils # (0-0.7) k/uL Basophils # (0-0.2) k/uL D-Dimer (<0.60) mg/L FEU Sodium (137-145) mmol/L Potassium (3.5-5.1) mmol/L Chloride (98-107) mmol/L Carbon Dioxide (22-30) mmol/L Anion Gap mmol/L BUN (7-17) mg/dL Creatinine (0.52-1.04) mg/dL Est GFR (CKD-EPI)AfAm (>60 ml/min/1.73 sqM) Est GFR (CKD-EPI)NonAf (>60 ml/min/1.73 sqM) Glucose (74-99) mg/dL Plasma Lactic Acid Prashant 1.3 (0.7-2.0) mmol/L Calcium (8.4-10.2) mg/dL Total Bilirubin (0.2-1.3) mg/dL AST (14-36) U/L ALT (4-34) U/L Alkaline Phosphatase (38-126) U/L Troponin I (0.000-0.034) ng/mL Total Protein (6.3-8.2) g/dL Albumin (3.5-5.0) g/dL Lipase (23-300) U/L Urine Color Urine Appearance (Clear) Urine pH (5.0-8.0) Ur Specific [place] (1.001-1.035) Urine Protein (Negative) Urine Glucose (UA) (Negative) Urine Ketones (Negative) Urine Blood (Negative) Urine Nitrite (Negative) Urine Bilirubin (Negative) Urine Urobilinogen (<2.0) mg/dL Ur Leukocyte Esterase (Negative) Urine RBC (0-5) /hpf Urine WBC (0-5) /hpf Ur Squamous Epith Cells (0-4) /hpf Urine Bacteria (None) /hpf Urine Mucus (None) /hpf Urine HCG, Qual (Not Detectd) Acetone, Qual (Negative) - EKG Data -: EKG Interpreted by Me (and Dr. Calix ) EKG Comments: Ventricular rate 89 Year and phone 62, QRS 86, QT/QTC 372/450. Normal gingiva, possible anterior infarct agent determined. No concern for acute ischemia at this time. Disposition Clinical Impression: Seizure, Elevated blood pressure reading Disposition: HOME SELF-CARE Condition: Stable Instructions (If sedation given, give patient instructions): How to Take a Blood Pressure (ED), Hypertension (ED) Additional Instructions: Follow-up with primary care provider and shoe stock associate tomorrow. Continue to monitor blood pressure at home. Return to ER if any worsening symptoms. Is patient prescribed a controlled substance at d/c from ED?: No Referrals: Oumar Ramírez MD [Primary Care Provider] - 1-2 days
== END 2019-09-20 19:32 | disposition home or self-care (01) ==
LOC: EC 16:56 → EEVIPCON 16:56 → EC 19:32
DX: I10 Essential (primary) hypertension (principal); G40.909 Epilepsy, unspecified, not intractable, without status epilepticus; R07.9 Chest pain, unspecified; J45.909 Unspecified asthma, uncomplicated; E11.40 Type 2 diabetes mellitus with diabetic neuropathy, unspecified; F90.9 Attention-deficit hyperactivity disorder, unspecified type; K21.9 Gastro-esophageal reflux disease without esophagitis; E07.9 Disorder of thyroid, unspecified; M79.7 Fibromyalgia; Z79.82 Long term (current) use of aspirin; Z79.4 Long term (current) use of insulin; Z79.890 Hormone replacement therapy; Z79.899 Other long term (current) drug therapy; Z88.8 Allergy status to other drugs, medicaments and biological substances; Z91.013 Allergy to seafood; Z91.040 Latex allergy status
CPT/HCPCS: 36415; 93005; 85379; 80053; 82009; 83605; 83690; 84484; 85025; 81001; 81025; 71046; 99285; 96374; 96361; J2060

== ENCOUNTER → 2019-11-20 | Outpatient (CLI) | payer OTHER ==
--- NOTE | 2019-11-20 11:40 | FL ---
EXAMINATION TYPE: FL barium swallow DATE OF EXAM: 11/20/2019 COMPARISON: None HISTORY: Food getting stuck, greater with meats TECHNIQUE: A double air contrast UGI study is performed. FINDINGS: Fluoroscopy time: 43 seconds Images: 10 Esophagus dilates to normal caliber has normal contour to the gastroesophageal junction. Gastroesopha geal junction opens to normal caliber. No intraluminal or extramural defect is evident. No focal sten osis is evident. In the horizontal drinking position there is complete stripping the esophageal bolus. No secondary or tertiary contractions are evident IMPRESSIONS: 1. Normal esophagus. No stenosis is evident.
== END | disposition home or self-care (01) ==
LOC: RADUSWWP 10:02
PROVIDERS: ATTEND Family Medicine
DX: R13.10 Dysphagia, unspecified (principal)
CPT/HCPCS: 74220

== ENCOUNTER 2020-05-09 00:26 | Emergency (ER) | payer OTHER ==
[2020-05-09 00:41] VITALS: RESP 18
[2020-05-09 01:11] VITALS: TEMP 99.2
[2020-05-09] MEDS ORDERED: FAMOTIDINE 20 MG/2 ML VIAL IV STA (01:34)
[2020-05-09] MEDS ORDERED: methylPREDNISolone SOD SUCCI 125 MG/2 ML VIAL IV STA (01:34)
[2020-05-09] MEDS ORDERED: diphenhydrAMINE 50 MG/ML 1 ML VIAL IVP STA (01:34)
[2020-05-09] MEDS ORDERED: SODIUM CHLORIDE 0.9% 1,000 ML IV STA (01:34)
--- NOTE | 2020-05-09 01:44 | ED ---
Allergic Reaction HPI - General Chief complaint: Allergic Reaction Stated complaint: Allergic Reaction Time Seen by Provider: 05/09/20 01:33 Source: patient, family, RN notes reviewed Mode of arrival: ambulatory - History of Present Illness Initial Comments: Patient is a 24 to female presents emergency room complaining of ALLERGIC reaction. She noted that she was eating dinner with her family when her face started follow-up she stated that her tongue was swollen. Mom states that she did give her Benadryl and has EpiPen but wasn't dry to use them so she can use 1. It was in no apparent distress or pain while sitting in bed during exam and interview. She denied any chest pain shortness of breath, difficult breathing headache nausea vomiting diarrhea constipation fever fatigue chills. - Related Data Home Medications Medication Instructions Recorded Confirmed Albuterol Inhaler (Mhu) [Ventolin 2 puff INHALATION RT-Q4H PRN 02/19/16 07/06/19 Hfa Inhaler (Mhu)] Albuterol Nebulized [Ventolin 2.5 mg INHALATION RT-QID PRN 02/19/16 07/06/19 Nebulized] Docusate [Colace] 100 mg PO BID 02/19/16 07/06/19 Fluticasone Nasal [place] [Flonase 1 spray EA NOSTRIL BID 02/19/16 07/06/19 Nasal [place] [employer]] Ipratropium Nebulized [Atrovent 0.5 mg INHALATION RT-QID PRN 02/19/16 07/06/19 Nebulized 0.2 MG/ML] LORazepam [Ativan] 1 mg PO TID PRN 02/19/16 07/06/19 Lacosamide [Vimpat] 200 mg PO BID 02/19/16 07/06/19 Loratadine [Claritin] 10 mg PO DAILY 02/19/16 07/06/19 Methylphenidate HCl [Concerta] 54 mg PO DAILY 02/19/16 07/06/19 Norelgestromin/Ethin.estradiol 1 patch TRANSDERM MOELLER 02/19/16 07/06/19 [Xulane Patch] Omeprazole [PriLOSEC] 20 mg PO HS 02/19/16 07/06/19 clonazePAM [Clonazepam] 2 mg PO DAILY PRN 02/19/16 07/06/19 lamoTRIgine [LaMICtal] 200 mg PO BID 02/19/16 07/06/19 Ipratropium [place] [Atrovent Hfa] 2 puff INHALATION RT-QID PRN 05/11/16 07/06/19 Levothyroxine Sodium [Synthroid] 175 mcg PO DAILY 05/11/16 07/06/19 risperiDONE [RisperDAL] 2 mg PO BID 05/11/16 07/06/19 Aspirin EC [Ecotrin Low Dose] 81 mg PO DAILY 08/17/16 07/06/19 Somatropin [Norditropin Flexpro] 0.5 mg SQ HS 08/17/16 07/06/19 Insulin Lispro [Admelog] See Protocol SQ AC-TID 09/12/18 07/06/19 Insulin Glargine,Hum.rec.anlog 26 unit SQ HS 06/28/19 07/06/19 [Basaglar Kwikpen U-100] Mometasone/Formoterol [Dulera 200 2 puff INHALATION DAILY 06/28/19 07/06/19 Mcg/5 Mcg Inhaler] Previous Rx's Medication Instructions Recorded Ibuprofen [Motrin] 800 mg PO Q8HR PRN #20 tab 05/11/16 EPINEPHrine [Epipen 2-Meek] 0.3 mg IM ONCE PRN #1 pack 07/03/18 Allergies Allergy/AdvReac Type Severity Reaction Status Date / Time cefuroxime Allergy Rash/Hives Verified 05/09/20 00:41 latex Allergy Swelling Verified 05/09/20 00:41 nifedipine [From Procardia] Allergy Unknown Verified 05/09/20 00:41 shrimp Allergy Swelling Verified 05/09/20 00:41 acetaminophen [From [place]] AdvReac Unknown Verified 05/09/20 00:41 gabapentin AdvReac altered Verified 05/09/20 00:41 mental status hydrocodone [From [place]] AdvReac Unknown Verified 05/09/20 00:41 hydromorphone [From Dilaudid] AdvReac Chest Pain Verified 05/09/20 00:41 levetiracetam [From Keppra] AdvReac Toxic Verified 05/09/20 00:41 Levels metoclopramide [From Reglan] AdvReac [place] Verified 05/09/20 00:41 Seizure pentamidine isethionate AdvReac Severe Pain Verified 09/20/19 19:29 pregabalin [From Lyrica] AdvReac Altered Verified 09/20/19 19:29 Mental Status Review of Systems ROS Statement: Those systems with pertinent positive or pertinent negative responses have been documented in the HPI. ROS Other: All systems not noted in ROS Statement are negative. 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 Past Anesthesia/Blood Transfusion Reactions: Postoperative Nausea & Vomiting (PONV) Past Psychological History: ADD/ADHD Smoking Status: Never smoker Past Alcohol Use History: None Reported Past Drug Use History: None Reported - Past Family History Mother Family Medical History: Thyroid Disorder Sister(s) Additional Family Medical History / Comment(s): raynauds Grandfather Family Medical History: Diabetes Mellitus Uncles Family Medical History: Diabetes Mellitus General Exam General appearance: alert, in no apparent distress, obese Head exam: Present: atraumatic, normocephalic, normal inspection Eye exam: Present: normal appearance, PERRL, EOMI. Absent: scleral icterus, conjunctival injection, periorbital swelling ENT exam: Present: normal exam, mucous membranes moist Neck exam: Present: normal inspection. Absent: tenderness, meningismus, lymphadenopathy Respiratory exam: Present: normal lung sounds bilaterally. Absent: respiratory distress, wheezes, rales, rhonchi, stridor Cardiovascular Exam: Present: regular rate, normal rhythm, normal heart sounds. Absent: systolic murmur, diastolic murmur, rubs, gallop, clicks GI/Abdominal exam: Present: soft, normal bowel sounds. Absent: distended, tenderness, guarding, rebound, rigid Extremities exam: Present: normal inspection, full ROM, normal capillary refill. Absent: tenderness, pedal edema, joint swelling, calf tenderness Neurological exam: Present: alert, oriented X3, CN II-XII intact Psychiatric exam: Present: normal affect, normal mood Skin exam: Present: warm, dry, intact, normal color, urticaria (Bilateral face with some minimal swelling, tongue appeared normal size.). Absent: rash Course Vital Signs 05/09/20 05/09/20 00:33 01:09 Temperature 98.5 F 99.2 F Pulse Rate 97 97 Respiratory 18 18 Rate Blood Pressure 156/111 140/91 O2 Sat by Pulse 98 97 Oximetry Medical Decision Making - Medical Decision Making 24 to female complaining of ALLERGIC reaction. 1 L normal saline, 50 mg of Benadryl, 125 mg of Cipro Medrol, 20 mg of Pepcid, 0.5 mg of epi ordered. Case discussed with Dr. Gordon, patient to discharge home Disposition Clinical Impression: Allergic reaction, Food allergy Disposition: HOME SELF-CARE Condition: Stable Instructions (If sedation given, give patient instructions): Anaphylaxis (ED) Additional Instructions: Please return to the Emergency Department if symptoms worsen or any other concerns. Follow-up with primary care in 2-4 days. Continues Benadryl at home as needed for symptomatic control. Is patient prescribed a controlled substance at d/c from ED?: No Referrals: Oumar Ramírez MD [Primary Care Provider] - 1-2 days Time of Disposition: 02:28
[2020-05-09 03:39] VITALS: BP 127/77; PULSE 71
== END 2020-05-09 03:40 | disposition home or self-care (01) ==
LOC: EC 00:26
DX: T78.40XA Allergy, unspecified, initial encounter (principal); L50.0 Allergic urticaria; E66.9 Obesity, unspecified; Z91.018 Allergy to other foods; F90.9 Attention-deficit hyperactivity disorder, unspecified type; K21.9 Gastro-esophageal reflux disease without esophagitis; J45.909 Unspecified asthma, uncomplicated; M79.7 Fibromyalgia; G40.909 Epilepsy, unspecified, not intractable, without status epilepticus; H54.61 Unqualified visual loss, right eye, normal vision left eye; H91.90 Unspecified hearing loss, unspecified ear; E11.40 Type 2 diabetes mellitus with diabetic neuropathy, unspecified; Z88.8 Allergy status to other drugs, medicaments and biological substances; Z88.5 Allergy status to narcotic agent; Z79.1 Long term (current) use of non-steroidal anti-inflammatories (NSAID); Z79.4 Long term (current) use of insulin; Z79.82 Long term (current) use of aspirin; Z79.51 Long term (current) use of inhaled steroids; Z68.38 Body mass index [BMI] 38.0-38.9, adult
CPT/HCPCS: 99283; 96374; 96375 ×2; 96372; 96361; J0171; J1200; J2930

== ENCOUNTER → 2020-05-14 | Outpatient (CLI) | payer OTHER ==
[2020-05-14 16:58] LABS: Hemoglobin A1C 10.1 % (4.0-6.0)
[2020-05-14 17:47] LABS: C-Peptide 2.54 ng/mL (0.81-3.85)
[2020-05-14 18:12] LABS: African American GFR (CKD) 103.7 (60.0-200.0); Albumin 4.2 g/dL (3.80-4.90); Albumin/Globulin Ratio 2.1 (1.60-3.17); Anion Gap 11.8 mmol/L (4.00-12.00); BUN/Creat Ratio 16.67 Ratio (12.00-20.00); Calcium 9.2 mg/dL (8.7-10.3); Carbon Dioxide 25.2 mmol/L (21.6-31.8); Chol/HDL Ratio 3.58; LDL Cholesterol,Calculated 69.2 mg/dL (0.0-131.0); Non-African American GFR(CKD) 89.5 (60.0-200.0); Potassium 4.3 mmol/L (3.5-5.5); Total Bilirubin 0.2 mg/dL (0.3-1.2); Total Protein 6.2 g/dL (6.2-8.2); VLDL Calculation 46.8 mg/dL (5.00-40.00)
[2020-05-14 18:20] LABS: T4, Free (Free Thyroxine) 1.3 ng/dL (0.80-1.80)
[2020-05-14 19:06] LABS: Urine Creatinine 120.4 mg/dL
[2020-05-16 18:18] LABS: Islet Cell IgG Cytopl Autoabs <1:4 (<1:4)
== END | disposition home or self-care (01) ==
LOC: LABWHC1 07:52
PROVIDERS: ATTEND Internal Medicine
DX: E11.65 Type 2 diabetes mellitus with hyperglycemia (principal); E23.0 Hypopituitarism; T07.XXXA Unspecified multiple injuries, initial encounter; Y99.9 Unspecified external cause status
CPT/HCPCS: 36415; 80053; 80061; 82043; 82306; 82523; 82570; 83036; 83519; 84305; 84439; 84443; 84681; 86341

== ENCOUNTER → 2020-11-25 | Outpatient (CLI) | payer OTHER ==
[2020-11-25 11:17] LABS: HCT 34.8 % (34.0-46.0); HGB 11.4 gm/dL (11.4-16.0); MCH 29.3 pg (25.0-35.0); MCHC 32.9 g/dL (31.0-37.0); MCV 89.2 fL (80.0-100.0); Mean Platelet Volume 8.1; Platelet Count 246 k/uL (150-450); WBC 9.1 k/uL (3.8-10.6)
[2020-11-25 11:36] LABS: African American GFR (CKD) >90 (>60 ml/min/1.73 sqM); Anion Gap 9 mmol/L; Blood Urea Nitrogen 16 mg/dL (7-17); Carbon Dioxide 27 mmol/L (22-30); Chloride 103 mmol/L (98-107); Non-African American GFR(CKD) >90 (>60 ml/min/1.73 sqM); Sodium 139 mmol/L (137-145)
== END | disposition home or self-care (01) ==
LOC: LABPAT 10:32
PROVIDERS: ATTEND Internal Medicine Cardiovascular Disease
DX: Z01.812 Encounter for preprocedural laboratory examination (principal); R07.9 Chest pain, unspecified
CPT/HCPCS: 36415; 80051; 82565; 84520; 85027

== ENCOUNTER 2020-11-28 09:04 | Day surgery (SDC) | payer OTHER ==
[2020-11-27 09:40] VITALS: BMI 36.2
[~2020-11-28 09:04] MED LIST changes: +ALPRAZolam 0.25 MG TAB PO PRN; +ALPRAZolam 0.5 MG TAB PO PRN; +ASPIRIN 325 MG TAB PO STA; +ATORVASTATIN 80 MG TAB PO STA; -CLINDAMYCIN 900 MG in DEXTROSE 5% IN WATER 50 ML IVPB ONE; -HEPARIN SODIUM,PORCINE 5,000 UNIT/ML 1 ML VIAL SQ ONE; +NITROGLYCERIN SL TABS 0.4 MG TAB SUBLINGUAL PRN
[2020-11-28 09:30] LABS: Glucose,Whole Blood 195 mg/dL (75-99)
[2020-11-28] MEDS: SODIUM CHLORIDE 0.9% 1,000 ML in EMPTY BAG 1 BAG IV SCH ×2 (09:35→21:10)
[2020-11-28] MEDS ORDERED: LIDOCAINE 1% INJ 10MG/ML (20 ML MDV) ONE (09:54)
[2020-11-28] MEDS ORDERED: VERAPAMIL 2.5 MG/ML 2 ML AMP ONE (09:54)
[2020-11-28] MEDS ORDERED: HEPARIN SODIUM 1,000 UN/ML (10ML VL) ONE (10:11)
[2020-11-28] MEDS ORDERED: fentaNYL (PF) 50 MCG/ML 2 ML AMP ONE (10:14)
[2020-11-28] MEDS: fentaNYL (PF) 50 MCG/ML 2 ML AMP IV ONE ×2 (10:20→10:42)
[2020-11-28] MEDS: MIDAZOLAM 2 MG/2 ML VIAL IV ONE ×2 (10:20→10:35)
[2020-11-28] MEDS: LIDOCAINE 1% INJ 10MG/ML (20 ML MDV) SQ ONE ×2 (10:21→10:55)
[2020-11-28] MEDS ORDERED: VERAPAMIL SYRINGE (5 MG/10 ML) INTRAARTER ONE (10:23)
[2020-11-28] MEDS ORDERED: HEPARIN SODIUM 1,000 UN/ML (10ML VL) IV ONE (10:27)
[2020-11-28] MEDS ORDERED: NITROGLYCERIN OINT 1 INCH/GM PACKET TOPICAL ONE ×2 (10:29→10:34)
[2020-11-28] MEDS: NITROGLYCERIN 1000MCG/10ML SYRINGE INTRAARTER ONE ×2 (10:39→10:46)
[2020-11-28] MEDS ORDERED: IOPAMIDOL-370 125ML BTL INJ ONE (11:02)
[2020-11-28] MEDS ORDERED: RX INFO: IV CONTRAST WAS GIVEN 1 EACH MISC MISCELLANE PRN (11:13)
--- NOTE | 2020-11-28 11:20 | P.CARDCATH ---
Date of Procedure: 11/28/20 Preoperative Diagnosis: Chest pain and positive stress test with multiple risk factors Postoperative Diagnosis: No critical disease Procedure(s) Performed: Left heart catheterization without left ventriculography Description of Procedure: HISTORY: This is a 25-year-old female with history of panhypopituitarism with history of diabetes and hypertension was been having intermittent chest pain . She had a nuclear stress test which showed evidence of possible ischemia in the anterolateral wall, though soft tissue artifact could not be excluded. Patient is advised to have a cardiac catheterization for definite diagnosis CONSENT:I have discussed the risks, benefits and alternative therapies for the above-mentioned procedure and for both sedation/analgesia as well as necessary blood product administration, if indicated, as they pertain to this patient. The patient has indicated understanding and acceptance of the risks and procedures discussed. PROCEDURE: Patient was brought to the lab in a fasting state. Patient was given some IV sedation. The right wrist is infiltrated with lidocaine. Right radial artery was entered using Seldinger technique. A 6[place] sheath was left in place. Selective injection of the right coronary artery was performed. However left coronary system could not be studied because of persistent catheter could not be advanced was intense spasms. Patient was given IV verapamil nitro paste and IV nitroglycerin without success. The procedure was completed from the right groin. The right groin is infiltrated with lidocaine and right femoral artery was entered using Seldinger technique. A 6-[place] catheter was left in place and selective coronary arteriography was performed. Patient tolerated the procedure well. Femoral angiogram was performed and manual compression was applied for hemostasis. No immediate complications were noted and patient was transferred to [facility] in a stable condition Conscious Sedation: Versed 2mg Fentanyl 100 g Duration 43minutes HEMODYNAMICS: The aortic pressure is 130/70.Left ventricle end-diastolic pressure is 8. No gradient across the aortic valve SELECTIVE CORONARY ARTERIOGRAPHY: LEFT MAIN: Normal length and 5 occlusive disease THE LEFT ANTERIOR DESCENDING CORONARY ARTERY: . Fair caliber vessel with mild irregularity without any significant occlusive disease THE LEFT CIRCUMFLEX AND IS CORONARY ARTERY: . Moderate-caliber vessel without any significant occlusive disease THE RIGHT CORONARY ARTERY: . Good caliber vessel and nondominant. Free of occlusive disease LEFT VENTRICULOGRAPHY: . Not performed FINAL IMPRESSION: . No evidence of significant coronary artery disease PLAN: Continue with medical therapy and risk factor modification PROGNOSIS: . Fair
[2020-11-28] MEDS: SODIUM CHLORIDE 0.9% 1,000 ML IV SCH ×2 (13:55→23:50)
[2020-11-28] MEDS ORDERED: IPRATROPIUM 0.5 MG/2.5 ML NEBU INHALATION PRN (18:39)
[2020-11-28] MEDS ORDERED: clonazePAM 1 MG TAB PO PRN (18:39)
[2020-11-28] MEDS ORDERED: LORazepam 1 MG TAB PO PRN (18:39)
[2020-11-28] MEDS ORDERED: NON FORMULARY DRUG (Ipratropium Bromide [Atrovent Hfa] 12.9 GM Hfa.Aer.Ad) INHALATION PRN (18:39)
[2020-11-28] MEDS ORDERED: ALBUTEROL NEBULIZED 2.5 MG/3 ML INHALATION PRN (18:39)
[2020-11-28] MEDS: ALBUTEROL NEBULIZED 2.5 MG/3 ML INHALATION PRN (20:01)
[2020-11-28 20:56] LABS: Glucose,Whole Blood 402 mg/dL (75-99)
[2020-11-28] MEDS ORDERED: HYDROCORTISONE 10 MG TAB PO SCH (21:00)
[2020-11-28] MEDS ORDERED: PANTOPRAZOLE 40 MG TABLET PO SCH (21:00)
[2020-11-28] MEDS ORDERED: SOMATROPIN SQ SCH (21:00)
[2020-11-28] MEDS ORDERED: INSULIN DETEMIR (LEVEMIR) 100 UNIT/ML SYR SQ SCH (21:00)
[2020-11-28 21:09] VITALS: RESP 16
[2020-11-28] MEDS: INSULIN ASPART (NovoLOG) 100 UNIT/ML VIAL SQ SCH (21:30)
[2020-11-28] MEDS: DOCUSATE 100 MG CAP PO SCH (21:33)
[2020-11-28] MEDS: FLUTICASONE 50MCG/SPRAY NASAL 16GM EA NOSTRIL SCH (21:33)
[2020-11-28] MEDS: lamoTRIgine 100 MG TAB PO SCH (21:33)
[2020-11-28] MEDS: METOPROLOL TARTRATE 25 MG TAB PO SCH (21:38)
[2020-11-28] MEDS: LACOSAMIDE 50 MG TABLET PO SCH (21:38)
[2020-11-28] MEDS: risperiDONE 2 MG TAB PO SCH (21:38)
[2020-11-29] MEDS ORDERED: LEVOTHYROXINE 100 MCG TAB PO SCH (06:30)
[2020-11-29] MEDS ORDERED: LEVOTHYROXINE 75 MCG TAB PO SCH (06:30)
[2020-11-29 07:29] LABS: Glucose,Whole Blood 276 mg/dL (75-99)
[2020-11-29] MEDS ORDERED: PANTOPRAZOLE 40 MG TABLET PO SCH (07:30)
[2020-11-29] MEDS ORDERED: SYMBICORT 160-4.5 MCG INHALER INHALATION SCH (08:00)
[2020-11-29] MEDS ORDERED: METHYLPHENIDATE HCL 5 MG TAB PO SCH (08:00)
[2020-11-29 08:30] VITALS: BP 100/63; TEMP 98.6
[2020-11-29] MEDS: ALBUTEROL NEBULIZED 2.5 MG/3 ML INHALATION PRN (08:58)
[2020-11-29] MEDS ORDERED: LORATADINE 10 MG TAB PO SCH (09:00)
[2020-11-29] MEDS ORDERED: ASPIRIN 81 MG PO SCH (09:00)
[2020-11-29] MEDS ORDERED: HYDROCORTISONE 10 MG TAB PO SCH (09:00)
[2020-11-29] MEDS ORDERED: NON FORMULARY DRUG (Liraglutide [Victoza 3-Pak] 0.6 MG/0.1 ML Ml) SQ SCH (09:00)
[2020-11-29] MEDS: LACOSAMIDE 50 MG TABLET PO SCH (09:36)
[2020-11-29] MEDS: lamoTRIgine 100 MG TAB PO SCH (09:36)
[2020-11-29] MEDS: DOCUSATE 100 MG CAP PO SCH (09:37)
[2020-11-29] MEDS: METOPROLOL TARTRATE 25 MG TAB PO SCH (09:37)
[2020-11-29] MEDS: risperiDONE 2 MG TAB PO SCH (09:37)
[2020-11-29] MEDS: FLUTICASONE 50MCG/SPRAY NASAL 16GM EA NOSTRIL SCH (09:53)
[2020-11-29] MEDS: INSULIN ASPART (NovoLOG) 100 UNIT/ML VIAL SQ SCH (09:53)
[2020-11-29 10:40] VITALS: PULSE 73
[2020-12-01] MEDS ORDERED: metFORMIN 500 MG TAB PO SCH (09:00)
== END 2020-11-29 10:15 | disposition home or self-care (01) ==
LOC: CATHCVL 09:04 → 6NMEDSUR 11:04 → CATHCVL 11-29 10:15
PROVIDERS: ATTEND Internal Medicine Cardiovascular Disease
DX: R07.9 Chest pain, unspecified (principal); R94.39 Abnormal result of other cardiovascular function study; E78.5 Hyperlipidemia, unspecified; I10 Essential (primary) hypertension; E78.00 Pure hypercholesterolemia, unspecified; E11.9 Type 2 diabetes mellitus without complications; Z82.49 Family history of ischemic heart disease and other diseases of the circulatory system; Z85.841 Personal history of malignant neoplasm of brain; G81.94 Hemiplegia, unspecified affecting left nondominant side; E23.0 Hypopituitarism; Z79.82 Long term (current) use of aspirin; Z79.890 Hormone replacement therapy; Z79.4 Long term (current) use of insulin; Z79.51 Long term (current) use of inhaled steroids; Z79.899 Other long term (current) drug therapy; Z88.5 Allergy status to narcotic agent; Z88.8 Allergy status to other drugs, medicaments and biological substances; Z91.040 Latex allergy status
CPT/HCPCS: 94640 ×3; 93458; 84703; 87635; C1894 ×2; C1769 ×2; J2250; J2001; J3010; J1644; Q9967

== ENCOUNTER 2020-12-29 21:59 | Observation (INO) | payer OTHER ==
[2020-12-29 22:57] LABS: Appearance,Urine Cloudy (Clear); Bacteria,Urine Occasional /hpf; Bilirubin,Urine Negative (Negative); Blood,Urine Large (Negative); Color,Urine Yellow; Glucose,Urine (UA) Negative (Negative); Ketones,Urine Negative (Negative); Leukocyte Esterase,Urine Large (Negative); Mucus,Urine Occasional /hpf; Nitrite,Urine Positive (Negative); Protein,Urine 1+ (Negative); RBC,Urine >182 /hpf (0-5); Squamous Epithelial Cell,Urine 6 /hpf (0-4); Urobilinogen,Urine <2.0 mg/dL (<2.0); WBC,Urine >182 /hpf (0-5)
[2020-12-29] MEDS ORDERED: SODIUM CHLORIDE 0.9% 1,000 ML IV STA (23:20)
[2020-12-29] MEDS ORDERED: KETOROLAC 15 MG/ML 1 ML VIAL IVP STA (23:20)
[2020-12-29] MEDS ORDERED: ONDANSETRON 4 MG/2 ML VIAL IVP STA (23:20)
--- NOTE | 2020-12-30 00:02 | ED ---
General Adult HPI - General Chief complaint: Back Pain/Injury Stated complaint: Abd Pain Time Seen by Provider: 12/29/20 23:07 Source: patient, family Mode of arrival: ambulatory Limitations: no limitations - History of Present Illness Initial comments: 25-year-old female patient with multiple medical problems including history of glioblastoma multi-form, diabetes mellitus, [place]'s disease presents to the emergency department today for evaluation of left flank pain with radiation down to the left lower quadrant and into her groin. States symptoms started early this morning and had been worsening throughout the day. She does report some nausea. States temperature was elevated 99.5 which is quite unusual for her even with infections. She does report urinary frequency and urgency. She is have history of kidney infection. They deny any chance of . Denies taking any medication for pain or symptoms at home. Patient denies any recent rash, cough, shortness of breath, chest pain, diarrhea, constipation, numbness, tingling, dizziness, weakness, headache, visual changes, or any other complaints. - Related Data Home Medications Medication Instructions Recorded Confirmed Albuterol Nebulized [Ventolin 2.5 mg INHALATION RT-QID PRN 02/19/16 12/29/20 Nebulized] Docusate [Colace] 100 mg PO BID 02/19/16 12/29/20 Fluticasone Nasal [place] [Flonase 1 spray EA NOSTRIL BID 02/19/16 12/29/20 Nasal [place]] Ipratropium Nebulized [Atrovent 0.5 mg INHALATION RT-QID PRN 02/19/16 12/29/20 Nebulized 0.2 MG/ML] LORazepam [Ativan] 1 mg PO TID PRN 02/19/16 12/29/20 Lacosamide [Vimpat] 200 mg PO BID 02/19/16 12/29/20 Loratadine [Claritin] 10 mg PO DAILY 02/19/16 12/29/20 Methylphenidate HCl [Concerta] 54 mg PO DAILY 02/19/16 12/29/20 Omeprazole [PriLOSEC] 20 mg PO HS 02/19/16 12/29/20 clonazePAM [Clonazepam] 2 mg PO BID PRN 02/19/16 12/29/20 Ipratropium [place] [Atrovent Hfa] 2 puff INHALATION RT-QID PRN 05/11/16 12/29/20 Levothyroxine Sodium [Synthroid] 175 mcg PO DAILY 05/11/16 12/29/20 risperiDONE [RisperDAL] 2 mg PO BID 05/11/16 12/29/20 Aspirin EC [Ecotrin Low Dose] 81 mg PO DAILY 08/17/16 12/29/20 Somatropin [Norditropin Flexpro] 0.5 mg SQ HS 08/17/16 12/29/20 Mometasone/Formoterol [Dulera 200 2 puff INHALATION RT-DAILY 06/28/19 12/29/20 Mcg/5 Mcg Inhaler] Glucagon [Baqsimi] 1 spray NASAL DIRECTED PRN 11/27/20 12/29/20 Hydrocortisone 2.5 mg PO HS 11/27/20 12/29/20 Hydrocortisone 5 mg PO DAILY 11/27/20 12/29/20 Insulin Glargine,Hum.rec.anlog 15 unit SQ HS 11/27/20 12/29/20 [Lantus Solostar Pen] Liraglutide [Victoza 3-Meek] 1.8 mg SQ DAILY 11/27/20 12/29/20 Metoprolol Tartrate [Lopressor] 25 mg PO TID 11/27/20 12/29/20 lamoTRIgine [LaMICtal] 200 mg PO BID 11/27/20 12/29/20 metFORMIN HCL [Glucophage] 500 mg PO DAILY 11/27/20 12/29/20 Albuterol Sulfate [Proair Hfa] 2 puff INHALATION RT-Q6H PRN 12/29/20 12/29/20 Norelgestromin/Ethin.estradiol 1 patch TRANSDERM FR 12/29/20 12/29/20 [Zafemy 150-35 Mcg/Day Patch] Previous Rx's Medication Instructions Recorded Ibuprofen [Motrin] 800 mg PO Q8HR PRN #20 tab 05/11/16 EPINEPHrine [Epipen 2-Meek] 0.3 mg IM ONCE PRN #1 pack 07/03/18 Allergies Allergy/AdvReac Type Severity Reaction Status Date / Time cefuroxime Allergy Rash/Hives Verified 12/29/20 23:39 latex Allergy Swelling Verified 12/29/20 23:39 nifedipine [From Procardia] Allergy Unknown Verified 12/29/20 23:39 shrimp Allergy Anaphylaxis Verified 12/29/20 23:39 acetaminophen [From [place]] AdvReac Rash/Hives Verified 12/29/20 23:39 gabapentin AdvReac altered Verified 12/29/20 23:39 mental status hydrocodone [From [place]] AdvReac Unknown Verified 12/29/20 23:39 hydromorphone [From Dilaudid] AdvReac Chest Pain Verified 12/29/20 23:39 levetiracetam [From Keppra] AdvReac Toxic Verified 12/29/20 23:39 Levels metoclopramide [From Reglan] AdvReac [place] Verified 12/29/20 23:39 Seizure pentamidine isethionate AdvReac Severe Pain Verified 12/29/20 23:39 pregabalin [From Lyrica] AdvReac Altered Verified 12/29/20 23:39 Mental Status Review of Systems ROS Statement: Those systems with pertinent positive or pertinent negative responses have been documented in the HPI. ROS Other: All systems not noted in ROS Statement are negative. Past Medical History Past Medical History: Asthma, Cancer, Chest Pain / Angina, Diabetes Mellitus, Fibromyalgia, GERD/Reflux, Hypertension, Seizure Disorder, Supraventricular Tachycardia (SVT), Thyroid Disorder Additional Past Medical History / Comment(s): glioblastomamultiform stage 4-dx. 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 uses cane, Dysautonomia; Raynauds; Blindness right eye; Hearing loss; Pulmonary Fibrosis, neuropathy, panhypopitituarism- addisons disease, osteoporosis History of Any Multi-Drug Resistant Organisms: None Reported Past Surgical History: Adenoidectomy, Appendectomy, Cholecystectomy, Tonsillectomy Additional Past Surgical History / Comment(s): craniotomy x2-right frontal lobe removed, broviac and portacath with subsequent removal of both. bone marrow transplant, Past Anesthesia/Blood Transfusion Reactions: Family History of Problems w/ Anesthesia, Motion Sickness, Postoperative Nausea & Vomiting (PONV) Additional Past Anesthesia/Blood Transfusion Reaction / Comment(s): mother PONV Past Psychological History: ADD/ADHD, Anxiety Smoking Status: Never smoker Past Alcohol Use History: None Reported Past Drug Use History: None Reported - Past Family History Mother Family Medical History: No Reported History Sister(s) Additional Family Medical History / Comment(s): raynauds Grandfather Family Medical History: Diabetes Mellitus Uncles Family Medical History: Diabetes Mellitus General Exam Limitations: no limitations General appearance: alert, in no apparent distress, other (Social well- developed, well-nourished, nontoxic-appearing patient no acute distress.) Eye exam: Present: normal appearance, PERRL, EOMI. Absent: scleral icterus, conjunctival injection, periorbital swelling ENT exam: Present: normal exam, normal oropharynx, mucous membranes moist Respiratory exam: Present: normal lung sounds bilaterally. Absent: respiratory distress, wheezes, rales, rhonchi, stridor Cardiovascular Exam: Present: regular rate, normal rhythm, normal heart sounds. Absent: systolic murmur, diastolic murmur, rubs, gallop, clicks GI/Abdominal exam: Present: soft, tenderness (Generalized), normal bowel sounds. Absent: distended, guarding, rebound, rigid Neurological exam: Present: alert, oriented X3, CN II-XII intact Psychiatric exam: Present: normal affect, normal mood Skin exam: Present: warm, dry, intact, normal color. Absent: rash Course Vital Signs 12/29/20 22:20 Temperature 98.7 F Pulse Rate 98 Respiratory 22 Rate Blood Pressure 143/89 O2 Sat by Pulse 99 Oximetry Medical Decision Making - Medical Decision Making 25-year-old female patient with past medical history significant for diabetes mellitus, [place]'s disease, multiple other medical problems presents for evaluation of left flank pain and left lower quadrant pain with radiation to the groin. Patient was found to have urinary tract infection positive nitrite. We did CT abdomen and pelvis showed left-sided nonobstructing kidney stone. Given symptoms, lab findings most likely patient has pyelonephritis. We will treat with Zosyn due to allergies and previous multidrug resistant urine culture. Discussed the case with patient's endocrinology group, Dr. Weaver who recommended increasing patient's oral hydrocortisone to 10mg in AM, 5mg at HS for 5 days, this dosing was started this evening. If BPs drop recommendation is to increase to 50mg IV q8hrs. Dr. Weaver can be reached at [phone] ext #[phone]. I did discuss findings, results, and plan with the parent and patient, t franciney are agreeable. Did discuss with my attending Dr. Cai. - Lab Data Result diagrams: 12/29/20 23:27 12/29/20 23:27 Lab Results 12/29/20 12/29/20 12/29/20 Range/Units 22:28 22:28 23:27 WBC 13.1 H (3.8-10.6) k/uL RBC 3.86 (3.80-5.40) m/uL Hgb 11.6 (11.4-16.0) gm/dL Hct 34.3 (34.0-46.0) % MCV 88.7 (80.0-100.0) fL MCH 30.0 (25.0-35.0) pg MCHC 33.8 (31.0-37.0) g/dL RDW 13.6 (11.5-15.5) % Plt Count 257 (150-450) k/uL MPV 7.7 Neutrophils % 61 % Lymphocytes % 32 % Monocytes % 4 % Eosinophils % 1 % Basophils % 0 % Neutrophils # 8.0 H (1.3-7.7) k/uL Lymphocytes # 4.3 (1.0-4.8) k/uL Monocytes # 0.5 (0-1.0) k/uL Eosinophils # 0.1 (0-0.7) k/uL Basophils # 0.0 (0-0.2) k/uL Sodium (137-145) mmol/L Potassium (3.5-5.1) mmol/L Chloride (98-107) mmol/L Carbon Dioxide (22-30) mmol/L Anion Gap mmol/L BUN (7-17) mg/dL Creatinine (0.52-1.04) mg/dL Est GFR (CKD-EPI)AfAm (>60 ml/min/1.73 sqM) Est GFR (CKD-EPI)NonAf (>60 ml/min/1.73 sqM) Glucose (74-99) mg/dL Plasma Lactic Acid Prashant (0.7-2.0) mmol/L Calcium (8.4-10.2) mg/dL Total Bilirubin (0.2-1.3) mg/dL AST (14-36) U/L ALT (4-34) U/L Alkaline Phosphatase (38-126) U/L Total Protein (6.3-8.2) g/dL Albumin (3.5-5.0) g/dL Lipase (23-300) U/L Urine Color Yellow Urine Appearance Cloudy H (Clear) Urine pH 6.0 (5.0-8.0) Ur Specific [place] 1.020 (1.001-1.035) Urine Protein 1+ H (Negative) Urine Glucose (UA) Negative (Negative) Urine Ketones Negative (Negative) Urine Blood Large H (Negative) Urine Nitrite Positive H (Negative) Urine Bilirubin Negative (Negative) Urine Urobilinogen <2.0 (<2.0) mg/dL Ur Leukocyte Esterase Large H (Negative) Urine RBC >182 H (0-5) /hpf Urine WBC >182 H (0-5) /hpf Urine WBC Clumps Many H (None) /hpf Ur Squamous Epith Cells 6 H (0-4) /hpf Urine Bacteria Occasional H (None) /hpf Urine Mucus Occasional H (None) /hpf Urine HCG, Qual Not Detected (Not Detectd) 12/29/20 12/29/20 Range/Units 23:27 23:27 WBC (3.8-10.6) k/uL RBC (3.80-5.40) m/uL Hgb (11.4-16.0) gm/dL Hct (34.0-46.0) % MCV (80.0-100.0) fL MCH (25.0-35.0) pg MCHC (31.0-37.0) g/dL RDW (11.5-15.5) % Plt Count (150-450) k/uL MPV Neutrophils % % Lymphocytes % % Monocytes % % Eosinophils % % Basophils % % Neutrophils # (1.3-7.7) k/uL Lymphocytes # (1.0-4.8) k/uL Monocytes # (0-1.0) k/uL Eosinophils # (0-0.7) k/uL Basophils # (0-0.2) k/uL Sodium 142 (137-145) mmol/L Potassium 3.6 (3.5-5.1) mmol/L Chloride 103 (98-107) mmol/L Carbon Dioxide 30 (22-30) mmol/L Anion Gap 9 mmol/L BUN 13 (7-17) mg/dL Creatinine 0.80 (0.52-1.04) mg/dL Est GFR (CKD-EPI)AfAm >90 (>60 ml/min/1.73 sqM) Est GFR (CKD-EPI)NonAf >90 (>60 ml/min/1.73 sqM) Glucose 102 H (74-99) mg/dL Plasma Lactic Acid Prashant 1.1 (0.7-2.0) mmol/L Calcium 9.3 (8.4-10.2) mg/dL Total Bilirubin 0.3 (0.2-1.3) mg/dL AST 33 (14-36) U/L ALT 61 H (4-34) U/L Alkaline Phosphatase 122 (38-126) U/L Total Protein 7.0 (6.3-8.2) g/dL Albumin 4.0 (3.5-5.0) g/dL Lipase 146 (23-300) U/L Urine Color Urine Appearance (Clear) Urine pH (5.0-8.0) Ur Specific [place] (1.001-1.035) Urine Protein (Negative) Urine Glucose (UA) (Negative) Urine Ketones (Negative) Urine Blood (Negative) Urine Nitrite (Negative) Urine Bilirubin (Negative) Urine Urobilinogen (<2.0) mg/dL Ur Leukocyte Esterase (Negative) Urine RBC (0-5) /hpf Urine WBC (0-5) /hpf Urine WBC Clumps (None) /hpf Ur Squamous Epith Cells (0-4) /hpf Urine Bacteria (None) /hpf Urine Mucus (None) /hpf Urine HCG, Qual (Not Detectd) - Radiology Data Radiology results: report reviewed, image reviewed CT abdomen and pelvis without contrast was obtained. Report is reviewed in its entirety. Impression by Dr. Roldan shows no sign of acute abdomen and pelvis. There are clips from appendectomy. Nonobstructing left renal calculus. Disposition Clinical Impression: Pyelonephritis, History of [place]'s disease Disposition: ADMITTED IP TO THIS [facility] Condition: Serious Referrals: Ouamr Ramírez MD [Primary Care Provider] - 1-2 days Decision to Admit Reason: Admit from EC Decision Date: 12/30/20 Decision Time: 01:26
[2020-12-30 00:20] LABS: Basophils % (A) 0 %; Eosinophils # (A) 0.1 k/uL (0-0.7); Eosinophils % (A) 1 %; HCT 34.3 % (34.0-46.0); HGB 11.6 gm/dL (11.4-16.0); Lymphocytes # (A) 4.3 k/uL (1.0-4.8); Lymphocytes % (A) 32 %; MCHC 33.8 g/dL (31.0-37.0); MCV 88.7 fL (80.0-100.0); Mean Platelet Volume 7.7; Monocytes # (A) 0.5 k/uL (0-1.0); Monocytes % (A) 4 %; Neutrophils % (A) 61 %; Platelet Count 257 k/uL (150-450); RBC 3.86 m/uL (3.80-5.40); RDW 13.6 % (11.5-15.5); WBC 13.1 k/uL (3.8-10.6)
--- NOTE | 2020-12-30 00:21 | CT ---
EXAMINATION TYPE: CT abdomen pelvis wo con DATE OF EXAM: 12/30/2020 COMPARISON: June 05, 2009 HISTORY: Left flank pain CT DLP: 794.4 mGycm Automated exposure control for dose reduction was used. Images obtained from the diaphragm to the floor the pelvis with no contrast. Lung bases are clear. There is no pleural effusion. Heart size is normal. There is no pericardial eff usion. There is some fatty infiltration of the liver. Bile ducts are not dilated. Spleen is intact. T here is no pancreatic mass. There are clips from cholecystectomy. Stomach is intact. There is no adrenal mass. Kidneys have normal size. There is 3 mm calculus posterior left kidney. The re is no retroperitoneal adenopathy. Ureters are not dilated. There are surgical clips at the cecum. Bladder distends smoothly. There is no inguinal hernia. There is no free fluid in the pelvis. Large b owel pattern is overall fairly normal. There is no mesenteric edema. There is no ascites or free air. There is no bowel obstruction. Uterus is anteverted. IMPRESSION: No sign of acute abdomen and pelvis. There are clips from appendectomy. Nonobstructing left renal cece culus.
[2020-12-30 00:24] LABS: ALT 61 U/L (4-34); AST 33 U/L (14-36); African American GFR (CKD) >90 (>60 ml/min/1.73 sqM); Alkaline Phosphatase 122 U/L (38-126); Anion Gap 9 mmol/L; Blood Urea Nitrogen 13 mg/dL (7-17); Calcium 9.3 mg/dL (8.4-10.2); Carbon Dioxide 30 mmol/L (22-30); Chloride 103 mmol/L (98-107); Glucose 102 mg/dL (74-99); Lipase 146 U/L (23-300); Non-African American GFR(CKD) >90 (>60 ml/min/1.73 sqM); Potassium 3.6 mmol/L (3.5-5.1); Sodium 142 mmol/L (137-145); Total Bilirubin 0.3 mg/dL (0.2-1.3)
[2020-12-30] MEDS ORDERED: PIPERACILLIN-TAZOBACTAM 3.375 GM in SODIUM CHLORIDE 0.9% 100 ML IVPB STA (00:38)
[2020-12-30] MEDS ORDERED: HYDROCORTISONE 10 MG TAB PO STA (01:05)
[2020-12-30] MEDS ORDERED: INSULIN DETEMIR (LEVEMIR) 100 UNIT/ML SYR SQ STA (01:06)
[2020-12-30] MEDS ORDERED: LACOSAMIDE 50 MG TABLET PO STA (01:08)
[2020-12-30] MEDS ORDERED: lamoTRIgine 100 MG TAB PO STA (01:08)
[2020-12-30] MEDS ORDERED: DOCUSATE 100 MG CAP PO STA (01:08)
[2020-12-30] MEDS ORDERED: METOPROLOL TARTRATE 25 MG TAB PO STA (01:08)
[2020-12-30] MEDS ORDERED: PANTOPRAZOLE 40 MG TABLET PO STA (01:08)
[2020-12-30] MEDS ORDERED: risperiDONE 2 MG TAB PO STA (01:08)
[2020-12-30] MEDS ORDERED: ONDANSETRON 4 MG/2 ML VIAL IVP PRN (01:12)
[2020-12-30] MEDS ORDERED: NALOXONE 0.4 MG/ML 1 ML VIAL IV PRN (01:12)
[2020-12-30] MEDS: SODIUM CHLORIDE 0.9% 1,000 ML IV SCH ×2 (01:37→10:19)
[2020-12-30 01:45] LABS: Glucose,Whole Blood 123 mg/dL (75-99)
[2020-12-30] MEDS ORDERED: clonazePAM 1 MG TAB PO PRN (02:38)
[2020-12-30] MEDS ORDERED: LORazepam 1 MG TAB PO PRN (02:38)
[2020-12-30] MEDS ORDERED: IPRATROPIUM-ALBUTEROL 3 ML NEB INHALATION PRN (02:40)
--- NOTE | 2020-12-30 02:44 | P.HPIM ---
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 History supplemented by the mother at the bedside. The patient reports that she had been in her usual state of health until this morning when she suddenly developed suprapubic sharp abdominal discomfort with radiation to the left flank. The patient reports that the pain was initially mild and quickly worsened to a 10 out of 10, with ass ociated dysuria, sharp in nature, alleviated by laying in position, no exacerbating features. The patient reports that at the time of the interview, her pain had improved to 4 out of 10. At home, the patient had a temperature of 99.5F. The patient denied chest discomfort, shortness of breath, nausea, vomiting, diarrhea. Denied She also reported some blood in the urine. The mother reports that the patient has had multiple UTI over the years though has never had a workup done with a urologist. In the emergency room, laboratory evaluation was remarkable for leukocytosis of 13.1 and UA consistent with UTI. A CT abdomen and pelvis without contrast revealed a nonobstructing left renal calculus but was otherwise unremarkable. Review of systems: Pertinent positives and negatives as discussed in HPI, a complete review of systems was performed and all other systems are negative. Physical examination: General: non toxic, no distress, appears at stated age, obese Derm: no unusual rashes/lesions no unusual ecchymoses, warm, dry Head: atraumatic, normocephalic, symmetric Eyes: EOMI, no lid lag, anicteric sclera, pupils equal round reactive to light ENT: Nose and ears atraumatic, no thrush, no pharyngeal erythema Neck: No thyromegaly, no cervical lymphadenopathy, trachea midline, supple Mouth: no lip lesion, mucus membranes moist Cardiovascular: S1S2 reg, no murmur, positive posterior tibial pulse bilateral, no edema, capillary refill less than 2 seconds Lungs: CTA bilateral, no rhonchi, no rales , no accessory muscle use Abdominal: soft, suprapubic tenderness, left CVA tenderness, no guarding, no appreciable organomegaly, normal bowel sounds Ext: no gross muscle atrophy, muscle strength 5 out of 5 in all 4 extremities grossly except dorsiflexion of the left foot strength 3 out of 5, no contractures, Neuro: CN II-XI grossly intact, light touch intact all 4 extremities, finger to nose within normal limits, Psych: Alert, oriented, appropriate affect Assessment/plan Polynephritis -C/w Zosyn (Cephalosporin allergy w/ history of multi-resistent Enterococcus fa ecalis UTI growth) -IV fluids -Pain control -Follow-up cultures -Urology consult [place]'s disease -The patient's case was discussed by the emergency room and PE with the patient's venereal disease investigator (Dr Weaver [phone] ext # [phone]) recommended stress dosing by increasing her hydrocortisone dose to 10 mg in the QAM and 5 mg QHS for 5 days. -Dr Weaver further recommended that if the patient's blood pressure drops, that hydrocortisone be increased to 50 mg IV every 8 hourly Chronic conditions: Asthma, diabetes mellitus, seizure disorder, hypopituitarism -Continue home meds -Levemir 10 U qhs and ANGELICA DVT prophylaxis -Heparin subq The patient is admitted with an anticipated greater than 2 midnight stay for evaluation of UTI CODE STATUS: Full Code Discussed with: Patient Anticipated discharge date: 2-[address]: Home e Past Medical History Past Medical History: Asthma, Cancer, Chest Pain / Angina, Diabetes Mellitus, Fibromyalgia, GERD/Reflux, Hypertension, Seizure Disorder, Supraventricular Tachycardia (SVT), Thyroid Disorder Additional Past Medical History / Comment(s): glioblastomamultiform stage 4-dx. 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 uses cane, Dysautonomia; Raynauds; Blindness right eye; Hearing loss; Pulmonary Fibrosis, neuropathy, panhypopitituarism- addisons disease, osteoporosis History of Any Multi-Drug Resistant Organisms: None Reported Past Surgical History: Adenoidectomy, Appendectomy, Cholecystectomy, Tonsillectomy Additional Past Surgical History / Comment(s): craniotomy x2-right frontal lobe removed, broviac and portacath with subsequent removal of both. bone marrow transplant, Past Anesthesia/Blood Transfusion Reactions: Family History of Problems w/ Anesthesia, Motion Sickness, Postoperative Nausea & Vomiting (PONV) Additional Past Anesthesia/Blood Transfusion Reaction / Comment(s): mother PONV Past Psychological History: ADD/ADHD, Anxiety Smoking Status: Never smoker Past Alcohol Use History: None Reported Past Drug Use History: None Reported - Past Family History Mother Family Medical History: No Reported History Sister(s) Additional Family Medical History / Comment(s): raynauds Grandfather Family Medical History: Diabetes Mellitus Uncles Family Medical History: Diabetes Mellitus Medications and Allergies Home Medications Medication Instructions Recorded Confirmed Type Albuterol Nebulized [Ventolin 2.5 mg INHALATION RT-QID PRN 02/19/16 12/29/20 History Nebulized] Docusate [Colace] 100 mg PO BID 02/19/16 12/29/20 History Fluticasone Nasal [place] [Flonase 1 spray EA NOSTRIL BID 02/19/16 12/29/20 History Nasal [place]] Ipratropium Nebulized [Atrovent 0.5 mg INHALATION RT-QID PRN 02/19/16 12/29/20 History Nebulized 0.2 MG/ML] LORazepam [Ativan] 1 mg PO TID PRN 02/19/16 12/29/20 History Lacosamide [Vimpat] 200 mg PO BID 02/19/16 12/29/20 History Loratadine [Claritin] 10 mg PO DAILY 02/19/16 12/29/20 History Methylphenidate HCl [Concerta] 54 mg PO DAILY 02/19/16 12/29/20 History Omeprazole [PriLOSEC] 20 mg PO HS 02/19/16 12/29/20 History clonazePAM [Clonazepam] 2 mg PO BID PRN 02/19/16 12/29/20 History Ibuprofen [Motrin] 800 mg PO Q8HR PRN #20 tab 05/11/16 12/29/20 Rx Ipratropium [place] [Atrovent Hfa] 2 puff INHALATION RT-QID PRN 05/11/16 12/29/20 History Levothyroxine Sodium [Synthroid] 175 mcg PO DAILY 05/11/16 12/29/20 History risperiDONE [RisperDAL] 2 mg PO BID 05/11/16 12/29/20 History Aspirin EC [Ecotrin Low Dose] 81 mg PO DAILY 08/17/16 12/29/20 History Somatropin [Norditropin Flexpro] 0.5 mg SQ HS 08/17/16 12/29/20 History EPINEPHrine [Epipen 2-Meek] 0.3 mg IM ONCE PRN #1 pack 07/03/18 12/29/20 Rx Mometasone/Formoterol [Dulera 200 2 puff INHALATION RT-DAILY 06/28/19 12/29/20 History Mcg/5 Mcg Inhaler] Glucagon [Baqsimi] 1 spray NASAL DIRECTED PRN 11/27/20 12/29/20 History Hydrocortisone 2.5 mg PO HS 11/27/20 12/29/20 History Hydrocortisone 5 mg PO DAILY 11/27/20 12/29/20 History Insulin Glargine,Hum.rec.anlog 15 unit SQ HS 11/27/20 12/29/20 History [Lantus Solostar Pen] Liraglutide [Victoza 3-Meek] 1.8 mg SQ DAILY 11/27/20 12/29/20 History Metoprolol Tartrate [Lopressor] 25 mg PO TID 11/27/20 12/29/20 History lamoTRIgine [LaMICtal] 200 mg PO BID 11/27/20 12/29/20 History metFORMIN HCL [Glucophage] 500 mg PO DAILY 11/27/20 12/29/20 History Albuterol Sulfate [Proair Hfa] 2 puff INHALATION RT-Q6H PRN 12/29/20 12/29/20 History Norelgestromin/Ethin.estradiol 1 patch TRANSDERM FR 12/29/20 12/29/20 History [Zafemy 150-35 Mcg/Day Patch] Allergies Allergy/AdvReac Type Severity Reaction Status Date / Time cefuroxime Allergy Rash/Hives Verified 12/29/20 23:39 latex Allergy Swelling Verified 12/29/20 23:39 nifedipine [From Procardia] Allergy Unknown Verified 12/29/20 23:39 shrimp Allergy Anaphylaxis Verified 12/29/20 23:39 acetaminophen [From [place]] AdvReac Rash/Hives Verified 12/29/20 23:39 gabapentin AdvReac altered Verified 12/29/20 23:39 mental status hydrocodone [From [place]] AdvReac Unknown Verified 12/29/20 23:39 hydromorphone [From Dilaudid] AdvReac Chest Pain Verified 12/29/20 23:39 levetiracetam [From Keppra] AdvReac Toxic Verified 12/29/20 23:39 Levels metoclopramide [From Reglan] AdvReac [place] Verified 12/29/20 23:39 Seizure pentamidine isethionate AdvReac Severe Pain Verified 12/29/20 23:39 pregabalin [From Lyrica] AdvReac Altered Verified 12/29/20 23:39 Mental Status Physical Exam Vitals: Vital Signs Temp Pulse Resp BP Pulse Ox 12/30/20 01:20 86 18 127/81 96 12/29/20 22:20 98.7 F 98 22 143/89 99 Intake and Output 12/29/20 12/29/20 12/30/20 14:59 22:59 06:59 Other: Weight 88.904 kg Results CBC & Chem 7: 12/29/20 23:27 12/29/20 23:27 Labs: Abnormal Lab Results - Last 24 Hours (Table) 12/29/20 12/29/20 12/29/20 Range/Units 22:28 23:27 23:27 WBC 13.1 H (3.8-10.6) k/uL Neutrophils # 8.0 H (1.3-7.7) k/uL Glucose 102 H (74-99) mg/dL POC Glucose (mg/dL) (75-99) mg/dL ALT 61 H (4-34) U/L Urine Appearance Cloudy H (Clear) Urine Protein 1+ H (Negative) Urine Blood Large H (Negative) Urine Nitrite Positive H (Negative) Ur Leukocyte Esterase Large H (Negative) Urine RBC >182 H (0-5) /hpf Urine WBC >182 H (0-5) /hpf Urine WBC Clumps Many H (None) /hpf Ur Squamous Epith Cells 6 H (0-4) /hpf Urine Bacteria Occasional H (None) /hpf Urine Mucus Occasional H (None) /hpf 12/30/20 Range/Units 01:44 WBC (3.8-10.6) k/uL Neutrophils # (1.3-7.7) k/uL Glucose (74-99) mg/dL POC Glucose (mg/dL) 123 H (75-99) mg/dL ALT (4-34) U/L Urine Appearance (Clear) Urine Protein (Negative) Urine Blood (Negative) Urine Nitrite (Negative) Ur Leukocyte Esterase (Negative) Urine RBC (0-5) /hpf Urine WBC (0-5) /hpf Urine WBC Clumps (None) /hpf Ur Squamous Epith Cells (0-4) /hpf Urine Bacteria (None) /hpf Urine Mucus (None) /hpf
[2020-12-30] MEDS: SYMBICORT 160-4.5 MCG INHALER INHALATION SCH ×2 (07:10→22:02)
[2020-12-30 07:45] LABS: Glucose,Whole Blood 124 mg/dL (75-99)
[2020-12-30] MEDS: INSULIN ASPART (NovoLOG) 100 UNIT/ML VIAL SQ SCH ×4 (09:05→20:00)
[2020-12-30 09:33] LABS: HCT 31.2 % (37.2-46.3); HGB 9.6 g/dL (12.0-15.0); MCH 28.5 pg (27.0-32.0); MCHC 30.8 g/dL (32.0-37.0); MCV 92.6 fL (80.0-97.0); Mean Platelet Volume 11.4 fL (9.5-12.2); Platelet Count 226 X 10*3/uL (140-440); RBC 3.37 X 10*6/uL (4.10-5.20); RDW 13.2 % (11.5-14.5); WBC 13.03 X 10*3/uL (4.50-10.00)
[2020-12-30] MEDS: ASPIRIN 81 MG PO SCH (09:33)
[2020-12-30] MEDS: HYDROCORTISONE 10 MG TAB PO SCH ×2 (09:33→21:35)
[2020-12-30] MEDS: DOCUSATE 100 MG CAP PO SCH ×2 (09:33→21:36)
[2020-12-30] MEDS: FLUTICASONE 50MCG/SPRAY NASAL 16GM EA NOSTRIL SCH (09:34)
[2020-12-30] MEDS: risperiDONE 2 MG TAB PO SCH ×2 (09:34→21:35)
[2020-12-30] MEDS: LEVOTHYROXINE 88 MCG TAB PO SCH (10:18)
[2020-12-30] MEDS: lamoTRIgine 100 MG TAB PO SCH ×2 (10:18→21:35)
[2020-12-30] MEDS: METOPROLOL TARTRATE 25 MG TAB PO SCH ×3 (10:18→21:36)
[2020-12-30] MEDS: PIPERACILLIN-TAZOBACTAM 3.375 GM in SODIUM CHLORIDE 0.9% 100 ML IVPB SCH ×2 (10:19→18:05)
[2020-12-30] MEDS: HEPARIN SODIUM,PORCINE/PF 5,000 UNIT/0.5 ML SYRINGE SQ SCH ×3 (10:19→22:57)
[2020-12-30 10:27] LABS: African American GFR (CKD) 118.8 (60.0-200.0); Anion Gap 12.9 mmol/L (4.00-12.00); BUN/Creat Ratio 14.63 Ratio (12.00-20.00); Blood Urea Nitrogen 11.7 mg/dL (9.0-27.0); Calcium 8.3 mg/dL (8.7-10.3); Carbon Dioxide 21.1 mmol/L (21.6-31.8); Non-African American GFR(CKD) 102.5 (60.0-200.0); Potassium 3.7 mmol/L (3.5-5.5)
--- NOTE | 2020-12-30 11:33 | P.PN ---
Progress Note - Text Progress Note Date: 12/30/20 Patient says that she still having episodes of fever. She stated that she still has dysuria. She is also complaining of left-sided back pain and groin pain. Patient states that the pain has improved slightly since yesterday. Mother is at bedside who states that her daughter's urine appears dark cloudy and foul- smelling. I reviewed patient's vital signs which are stable. No fever has been charted. I reviewed patient's labs. Patient did have a drop in her hemoglobin from 13- 9.5. Her WBC is stable around 13. Patient denies any overt signs of bleeding. We'll continue to monitor patient's hemoglobin. We'll follow up on blood cultures and urine culture. Resume IV Zosyn. Urology consult is pending. Patient's blood pressure is stable so there is no need to increase her current steroid regimen.
[2020-12-30 12:42] LABS: Glucose,Whole Blood 227 mg/dL (75-99)
[2020-12-30] MEDS: METHYLPHENIDATE HCL 5 MG TAB PO SCH ×2 (12:47→15:04)
[2020-12-30] MEDS: KETOROLAC 15 MG/ML 1 ML VIAL IVP PRN ×2 (13:50→20:14)
[2020-12-30] MEDS: MORPHINE SULFATE 2 MG/ML SYRINGE IVP PRN ×2 (16:41→21:33)
--- NOTE | 2020-12-30 16:52 | P.GSCN ---
History of Present Illness Consult date: 12/30/20 History of present illness: 25 yo female admitted with left pyelonephritis. I was asked to see because of recurrent utis and a left small renal stone. the patient is an insulin dependent diabetic with addisons disease. SHe has multiple serious medical problems outlined in the H&P. there is no history of stones The ct scan doesnot show any hydronephrosis nor renal masses or abscesses. Her infections have mostly been lower tract by her mothers description. He lives with her mother. Review of Systems All systems: negative - Constitutional Denies fever, Denies weight loss - EENT Eyes: denies blurred vision Ears, nose, mouth and throat: Denies dysphagia - Cardiovascular Denies chest pain, Denies shortness of breath - Respiratory Denies cough, Denies 7 - Gastrointestinal Reports as per HPI - Genitourinary Genitourinary: Denies dysuria, Denies hematuria - Integumentary Denies rash, Denies unusual bruising - Neurological Denies headaches, Denies syncope - Hematologic/Lymphatic Denies easy bleeding, Denies easy bruising Past Medical History Past Medical History: Asthma, Cancer, Chest Pain / Angina, Diabetes Mellitus, Fibromyalgia, GERD/Reflux, Hypertension, Seizure Disorder, Supraventricular Tachycardia (SVT), Thyroid Disorder Additional Past Medical History / Comment(s): glioblastomamultiform stage 4-dx. 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 uses cane, Dysautonomia; Raynauds; Blindness right eye; Hearing loss; Pulm onary Fibrosis, neuropathy, panhypopitituarism- addisons disease, osteoporosis History of Any Multi-Drug Resistant Organisms: None Reported Past Surgical History: Adenoidectomy, Appendectomy, Cholecystectomy, Tonsillectomy Additional Past Surgical History / Comment(s): craniotomy x2-right frontal lobe removed, broviac and portacath with subsequent removal of both. bone marrow transplant, Past Anesthesia/Blood Transfusion Reactions: Family History of Problems w/ Anesthesia, Motion Sickness, Postoperative Nausea & Vomiting (PONV) Additional Past Anesthesia/Blood Transfusion Reaction / Comm: mother PONV Past Psychological History: ADD/ADHD, Anxiety Smoking Status: Never smoker Past Alcohol Use History: None Reported Past Drug Use History: None Reported - Past Family History Mother Family Medical History: No Reported History Sister(s) Additional Family Medical History / Comment(s): raynauds Grandfather Family Medical History: Diabetes Mellitus Uncles Family Medical History: Diabetes Mellitus Medications and Allergies Home Medications Medication Instructions Recorded Confirmed Type Albuterol Nebulized [Ventolin 2.5 mg INHALATION RT-QID PRN 02/19/16 12/29/20 History Nebulized] Docusate [Colace] 100 mg PO BID 02/19/16 12/29/20 History Fluticasone Nasal [place] [Flonase 1 spray EA NOSTRIL BID 02/19/16 12/29/20 History Nasal [place]] Ipratropium Nebulized [Atrovent 0.5 mg INHALATION RT-QID PRN 02/19/16 12/29/20 History Nebulized 0.2 MG/ML] LORazepam [Ativan] 1 mg PO TID PRN 02/19/16 12/29/20 History Lacosamide [Vimpat] 200 mg PO BID 02/19/16 12/29/20 History Loratadine [Claritin] 10 mg PO DAILY 02/19/16 12/29/20 History Methylphenidate HCl [Concerta] 54 mg PO DAILY 02/19/16 12/29/20 History Omeprazole [PriLOSEC] 20 mg PO HS 02/19/16 12/29/20 History clonazePAM [Clonazepam] 2 mg PO BID PRN 02/19/16 12/29/20 History Ibuprofen [Motrin] 800 mg PO Q8HR PRN #20 tab 05/11/16 12/29/20 Rx Ipratropium [place] [Atrovent Hfa] 2 puff INHALATION RT-QID PRN 05/11/16 12/29/20 History Levothyroxine Sodium [Synthroid] 175 mcg PO DAILY 05/11/16 12/29/20 History risperiDONE [RisperDAL] 2 mg PO BID 05/11/16 12/29/20 History Aspirin EC [Ecotrin Low Dose] 81 mg PO DAILY 08/17/16 12/29/20 History Somatropin [Norditropin Flexpro] 0.5 mg SQ HS 08/17/16 12/29/20 History EPINEPHrine [Epipen 2-Meek] 0.3 mg IM ONCE PRN #1 pack 07/03/18 12/29/20 Rx Mometasone/Formoterol [Dulera 200 2 puff INHALATION RT-DAILY 06/28/19 12/29/20 H istory Mcg/5 Mcg Inhaler] Glucagon [Baqsimi] 1 spray NASAL DIRECTED PRN 11/27/20 12/29/20 History Hydrocortisone 2.5 mg PO HS 11/27/20 12/29/20 History Hydrocortisone 5 mg PO DAILY 11/27/20 12/29/20 History Insulin Glargine,Hum.rec.anlog 15 unit SQ HS 11/27/20 12/29/20 History [Lantus Solostar Pen] Liraglutide [Victoza 3-Meek] 1.8 mg SQ DAILY 11/27/20 12/29/20 History Metoprolol Tartrate [Lopressor] 25 mg PO TID 11/27/20 12/29/20 History lamoTRIgine [LaMICtal] 200 mg PO BID 11/27/20 12/29/20 History metFORMIN HCL [Glucophage] 500 mg PO DAILY 11/27/20 12/29/20 History Albuterol Sulfate [Proair Hfa] 2 puff INHALATION RT-Q6H PRN 12/29/20 12/29/20 History Norelgestromin/Ethin.estradiol 1 patch TRANSDERM FR 12/29/20 12/29/20 History [Zafemy 150-35 Mcg/Day Patch] Liraglutide [Victoza 3-Meek] 1.8 mg SQ DAILY 12/30/20 12/30/20 History Allergies Allergy/AdvReac Type Severity Reaction Status Date / Time cefuroxime Allergy Rash/Hives Verified 12/29/20 23:39 latex Allergy Swelling Verified 12/29/20 23:39 nifedipine [From Procardia] Allergy Unknown Verified 12/29/20 23:39 shrimp Allergy Anaphylaxis Verified 12/29/20 23:39 acetaminophen [From [place]] AdvReac Rash/Hives Verified 12/29/20 23:39 gabapentin AdvReac altered Verified 12/29/20 23:39 mental status hydrocodone [From [place]] AdvReac Unknown Verified 12/29/20 23:39 hydromorphone [From Dilaudid] AdvReac Chest Pain Verified 12/29/20 23:39 levetiracetam [From Keppra] AdvReac Toxic Verified 12/29/20 23:39 Levels metoclopramide [From Reglan] AdvReac [place] Verified 12/29/20 23:39 Seizure pentamidine isethionate AdvReac Severe Pain Verified 12/29/20 23:39 pregabalin [From Lyrica] AdvReac Altered Verified 12/29/20 23:39 Mental Status Surgical - Exam Vital Signs Temp Pulse Resp BP Pulse Ox 98.7 F 98 22 143/89 99 12/29/20 22:20 12/29/20 22:20 12/29/20 22:20 12/29/20 22:20 12/29/20 22:20 - General well developed, well nourished, no distress, obese - Eyes PERRL - ENT no hearing loss - Neck trachea midline - Respiratory normal expansion - Cardiovascular Rhythm: irregularly irregular - Abdomen Abdomen: soft, non tender - Neurologic normal sensation - Musculoskeletal normal posture - Psychiatric oriented to time, oriented to person, oriented to place, speech is normal, memory intact Results - Labs 12/30/20 03:27 12/30/20 03:27 Abnormal Lab Results - Last 24 Hours (Table) 12/29/20 12/29/20 12/29/20 Range/Units 22:28 23:27 23:27 WBC 13.1 H (3.8-10.6) k/uL RBC (4.10-5.20) X 10*6/uL Hgb (12.0-15.0) g/dL Hct (37.2-46.3) % MCHC (32.0-37.0) g/dL Neutrophils # 8.0 H (1.3-7.7) k/uL Carbon Dioxide (21.6-31.8) mmol/L Anion Gap (4.00-12.00) mmol/L Glucose 102 H (74-99) mg/dL POC Glucose (mg/dL) (75-99) mg/dL Calcium (8.7-10.3) mg/dL ALT 61 H (4-34) U/L Urine Appearance Cloudy H (Clear) Urine Protein 1+ H (Negative) Urine Blood Large H (Negative) Urine Nitrite Positive H (Negative) Ur Leukocyte Esterase Large H (Negative) Urine RBC >182 H (0-5) /hpf Urine WBC >182 H (0-5) /hpf Urine WBC Clumps Many H (None) /hpf Ur Squamous Epith Cells 6 H (0-4) /hpf Urine Bacteria Occasional H (None) /hpf Urine Mucus Occasional H (None) /hpf 12/30/20 12/30/20 12/30/20 Range/Units 01:44 03:27 03:27 WBC 13.03 H (3.8-10.6) k/uL RBC 3.37 L (4.10-5.20) X 10*6/uL Hgb 9.6 L (12.0-15.0) g/dL Hct 31.2 L (37.2-46.3) % MCHC 30.8 L (32.0-37.0) g/dL Neutrophils # (1.3-7.7) k/uL Carbon Dioxide 21.1 L (21.6-31.8) mmol/L Anion Gap 12.90 H (4.00-12.00) mmol/L Glucose 177 H (74-99) mg/dL POC Glucose (mg/dL) 123 H (75-99) mg/dL Calcium 8.3 L (8.7-10.3) mg/dL ALT (4-34) U/L Urine Appearance (Clear) Urine Protein (Negative) Urine Blood (Negative) Urine Nitrite (Negative) Ur Leukocyte Esterase (Negative) Urine RBC (0-5) /hpf Urine WBC (0-5) /hpf Urine WBC Clumps (None) /hpf Ur Squamous Epith Cells (0-4) /hpf Urine Bacteria (None) /hpf Urine Mucus (None) /hpf 12/30/20 12/30/20 Range/Units 07:35 12:40 WBC (3.8-10.6) k/uL RBC (4.10-5.20) X 10*6/uL Hgb (12.0-15.0) g/dL Hct (37.2-46.3) % MCHC (32.0-37.0) g/dL Neutrophils # (1.3-7.7) k/uL Carbon Dioxide (21.6-31.8) mmol/L Anion Gap (4.00-12.00) mmol/L Glucose (74-99) mg/dL POC Glucose (mg/dL) 124 H 227 H (75-99) mg/dL Calcium (8.7-10.3) mg/dL ALT (4-34) U/L Urine Appearance (Clear) Urine Protein (Negative) Urine Blood (Negative) Urine Nitrite (Negative) Ur Leukocyte Esterase (Negative) Urine RBC (0-5) /hpf Urine WBC (0-5) /hpf Urine WBC Clumps (None) /hpf Ur Squamous Epith Cells (0-4) /hpf Urine Bacteria (None) /hpf Urine Mucus (None) /hpf Microbiology - Last 24 Hours (Table) 12/29/20 22:28 Urine Culture - Preliminary Urine,Voided Diabetes panel 12/29/20 12/30/20 Range/Units 23:27 03:27 Sodium 142 140 (137-145) mmol/L Potassium 3.6 3.7 (3.5-5.1) mmol/L Chloride 103 106 (98-107) mmol/L Carbon Dioxide 30 21.1 L (22-30) mmol/L BUN 13 11.7 (7-17) mg/dL Creatinine 0.80 0.8 (0.52-1.04) mg/dL Glucose 102 H 177 H (74-99) mg/dL Calcium 9.3 8.3 L (8.4-10.2) mg/dL AST 33 (14-36) U/L ALT 61 H (4-34) U/L Alkaline Phosphatase 122 (38-126) U/L Total Protein 7.0 (6.3-8.2) g/dL Albumin 4.0 (3.5-5.0) g/dL Calcium panel 12/29/20 12/30/20 Range/Units 23:27 03:27 Calcium 9.3 8.3 L (8.4-10.2) mg/dL Albumin 4.0 (3.5-5.0) g/dL Pituitary panel 12/29/20 12/30/20 Range/Units 23:27 03:27 Sodium 142 140 (137-145) mmol/L Potassium 3.6 3.7 (3.5-5.1) mmol/L Chloride 103 106 (98-107) mmol/L Carbon Dioxide 30 21.1 L (22-30) mmol/L BUN 13 11.7 (7-17) mg/dL Creatinine 0.80 0.8 (0.52-1.04) mg/dL Glucose 102 H 177 H (74-99) mg/dL Calcium 9.3 8.3 L (8.4-10.2) mg/dL Adrenal panel 12/29/20 12/30/20 Range/Units 23:27 03:27 Sodium 142 140 (137-145) mmol/L Potassium 3.6 3.7 (3.5-5.1) mmol/L Chloride 103 106 (98-107) mmol/L Carbon Dioxide 30 21.1 L (22-30) mmol/L BUN 13 11.7 (7-17) mg/dL Creatinine 0.80 0.8 (0.52-1.04) mg/dL Glucose 102 H 177 H (74-99) mg/dL Calcium 9.3 8.3 L (8.4-10.2) mg/dL Total Bilirubin 0.3 (0.2-1.3) mg/dL AST 33 (14-36) U/L ALT 61 H (4-34) U/L Alkaline Phosphatase 122 (38-126) U/L Total Protein 7.0 (6.3-8.2) g/dL Albumin 4.0 (3.5-5.0) g/dL - Imaging CT scan - abdomen: report reviewed, image reviewed CT scan - pelvis: report reviewed, image reviewed Assessment and Plan Assessment: Impression. left pyelonephritis. recurrent cystitis, asymptomatic small renal stone. Multiple medical problems. Plan: I will obtain a post void residual there are no obvious surgical issues cause the recurrent utis. I will follow with you
[2020-12-30 17:31] LABS: Glucose,Whole Blood 188 mg/dL (75-99)
[2020-12-30 19:58] LABS: Glucose,Whole Blood 121 mg/dL (75-99)
[2020-12-30] MEDS: INSULIN DETEMIR (LEVEMIR) 100 UNIT/ML SYR SQ SCH (21:36)
[2020-12-30] MEDS: LACOSAMIDE 50 MG TABLET PO SCH (22:57)
[2020-12-31] MEDS: FLUTICASONE 50MCG/SPRAY NASAL 16GM EA NOSTRIL SCH ×3 (00:13→22:27)
[2020-12-31] MEDS: PIPERACILLIN-TAZOBACTAM 3.375 GM in SODIUM CHLORIDE 0.9% 100 ML IVPB SCH ×3 (01:14→17:07)
[2020-12-31] MEDS: SODIUM CHLORIDE 0.9% 1,000 ML IV SCH (01:15)
[2020-12-31 07:01] LABS: Glucose,Whole Blood 129 mg/dL (75-99)
[2020-12-31 07:24] LABS: Basophils % (A) 0 %; Eosinophils # (A) 0.1 k/uL (0-0.7); Eosinophils % (A) 1 %; HCT 31.8 % (34.0-46.0); HGB 10.5 gm/dL (11.4-16.0); Lymphocytes # (A) 3.2 k/uL (1.0-4.8); Lymphocytes % (A) 28 %; MCH 29.9 pg (25.0-35.0); MCHC 33.1 g/dL (31.0-37.0); MCV 90.4 fL (80.0-100.0); Mean Platelet Volume 7.7; Monocytes # (A) 0.5 k/uL (0-1.0); Monocytes % (A) 4 %; Neutrophils # (A) 7.2 k/uL (1.3-7.7); Neutrophils % (A) 65 %; Platelet Count 189 k/uL (150-450); RBC 3.51 m/uL (3.80-5.40); RDW 13.1 % (11.5-15.5); WBC 11.1 k/uL (3.8-10.6)
[2020-12-31 07:25] LABS: African American GFR (CKD) 56 (>60 ml/min/1.73 sqM); Anion Gap 7 mmol/L; Blood Urea Nitrogen 18 mg/dL (7-17); Calcium 8.7 mg/dL (8.4-10.2); Carbon Dioxide 26 mmol/L (22-30); Chloride 108 mmol/L (98-107); Glucose 140 mg/dL (74-99); Non-African American GFR(CKD) 49 (>60 ml/min/1.73 sqM); Potassium 4.3 mmol/L (3.5-5.1); Sodium 141 mmol/L (137-145)
[2020-12-31] MEDS: INSULIN ASPART (NovoLOG) 100 UNIT/ML VIAL SQ SCH ×4 (09:34→22:27)
[2020-12-31] MEDS: KETOROLAC 15 MG/ML 1 ML VIAL IVP PRN ×2 (09:35→22:09)
[2020-12-31] MEDS: SYMBICORT 160-4.5 MCG INHALER INHALATION SCH ×2 (09:54→21:14)
[2020-12-31] MEDS: LEVOTHYROXINE 88 MCG TAB PO SCH (10:50)
[2020-12-31] MEDS: METOPROLOL TARTRATE 25 MG TAB PO SCH ×3 (10:51→22:26)
[2020-12-31] MEDS: METHYLPHENIDATE HCL 5 MG TAB PO SCH ×2 (10:52→13:56)
[2020-12-31] MEDS: DOCUSATE 100 MG CAP PO SCH ×2 (10:54→22:26)
[2020-12-31] MEDS: lamoTRIgine 100 MG TAB PO SCH ×2 (10:55→22:23)
[2020-12-31] MEDS: ASPIRIN 81 MG PO SCH (10:55)
[2020-12-31] MEDS: LACOSAMIDE 50 MG TABLET PO SCH ×2 (10:56→22:25)
[2020-12-31] MEDS: HYDROCORTISONE 10 MG TAB PO SCH ×2 (10:58→22:25)
[2020-12-31] MEDS: risperiDONE 2 MG TAB PO SCH ×2 (10:59→22:28)
[2020-12-31] MEDS: HEPARIN SODIUM,PORCINE/PF 5,000 UNIT/0.5 ML SYRINGE SQ SCH ×3 (11:02→23:37)
[2020-12-31] MEDS: MORPHINE SULFATE 2 MG/ML SYRINGE IVP PRN ×3 (11:18→23:33)
[2020-12-31 11:31] LABS: Glucose,Whole Blood 296 mg/dL (75-99)
[2020-12-31] MEDS ORDERED: SODIUM CHLORIDE 0.9% 1,000 ML IV STA (13:32)
--- NOTE | 2020-12-31 13:38 | P.PN ---
Subjective Progress Note Date: 12/31/20 Principal diagnosis: UTI Patient is still in severe pain in the left flank area. She will be receiving morphine soon. Already received Tylenol but it didn't help. Her mother stated that she usually gets fungal infections in the inguinal areas after she gets antibiotics and that is usually prevented by Diflucan. No nausea or vomiting. No fevers. Objective - Vital Signs Vital signs: Vital Signs Temp 98.9 F 12/31/20 07:47 Pulse 82 12/31/20 07:47 Resp 18 12/31/20 07:47 BP 150/94 12/31/20 07:47 Pulse Ox 92 L 12/31/20 07:47 Intake & Output 12/30/20 12/31/20 12/31/20 18:59 06:59 18:59 Intake Total 200 Balance 200 Intake: Oral 200 Other: Voiding Method Toilet Toilet - Exam Constitutional: No acute distress, conversant, pleasant Eyes:Anicteric sclerae, moist conjunctiva, no lid-lag, PERRLA, ENMT: Oropharynx clear, no erythema, exudates Neck: Supple, FROM, no masses, or JVD, No carotid bruits, No thyromegaly Lungs: Clear to auscultation, Clear to percussion, Normal respiratory effort, no accessory muscle use Cardiovascular: Heart regular in rate and rhythm, No murmurs, gallops, or rubs, No peripheral edema Abdominal: Soft, left flank tenderness, no guarding, rebound or rigidity, Normoactive bowel sounds, No hepatomegaly, No splenomegaly, No palpable mass Skin: Normal temperature, tone, texture, turgor, no induration, No subcutaneous nodules, No rash, lesions, No ulcers Extremities: No digital cyanosis, No clubbing, Pedal pulses intact and symmetrical, Radial pulses intact and symmetrical, No calf tenderness Psychiatric: Alert and oriented to person, place and time, appropriate affect, intact judgement Neuro: Muscles Strength 5/5 in all 4 extremities, Sensation to light touch grossly present throughout, Cranial nerves II-XII grossly intact, no focal sensory deficits - Labs CBC & Chem 7: 12/31/20 06:52 12/31/20 06:52 Labs: Abnormal Lab Results - Last 24 Hours (Table) 12/30/20 12/30/20 12/30/20 Range/Units 03:27 17:25 19:52 WBC (3.8-10.6) k/uL RBC (3.80-5.40) m/uL Hgb (11.4-16.0) gm/dL Hct (34.0-46.0) % Chloride (98-107) mmol/L BUN (7-17) mg/dL Creatinine (0.52-1.04) mg/dL Glucose (74-99) mg/dL POC Glucose (mg/dL) 188 H 121 H (75-99) mg/dL Hemoglobin A1c 8.4 H (4.0-6.0) % 12/31/20 12/31/20 12/31/20 Range/Units 06:52 06:52 06:54 WBC 11.1 H (3.8-10.6) k/uL RBC 3.51 L (3.80-5.40) m/uL Hgb 10.5 L (11.4-16.0) gm/dL Hct 31.8 L (34.0-46.0) % Chloride 108 H (98-107) mmol/L BUN 18 H (7-17) mg/dL Creatinine 1.49 H (0.52-1.04) mg/dL Glucose 140 H (74-99) mg/dL POC Glucose (mg/dL) 129 H (75-99) mg/dL Hemoglobin A1c (4.0-6.0) % 12/31/20 Range/Units 11:30 WBC (3.8-10.6) k/uL RBC (3.80-5.40) m/uL Hgb (11.4-16.0) gm/dL Hct (34.0-46.0) % Chloride (98-107) mmol/L BUN (7-17) mg/dL Creatinine (0.52-1.04) mg/dL Glucose (74-99) mg/dL POC Glucose (mg/dL) 296 H (75-99) mg/dL Hemoglobin A1c (4.0-6.0) % Microbiology - Last 24 Hours (Table) 12/29/20 22:28 Urine Culture - Preliminary Urine,Voided Gram Neg Bacilli Assessment and Plan Plan: Polynephritis with abdominal computed tomography scan showing nonobstructive left renal calculus -C/w Zosyn (Cephalosporin allergy w/ history of multi-resistent Enterococcus faecalis UTI growth), add Diflucan to prevent fungal infection -IV fluids -Pain control -Follow-up cultures -Urology consulted, no surgical intervention needed MELONIE -Increase IV fluids -Avoid nephrotoxic medications -Follow up creatinine in a.m. 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 -Dr Weaver further recommended that if the patient's blood pressure drops, that hydrocortisone be increased to 50 mg IV every 8 hourly Chronic conditions: Asthma, diabetes mellitus, seizure disorder, hypopituitarism -Continue home meds -Levemir 10 U qhs and ANGELICA DVT prophylaxis -Heparin subq Discussed with: Patient and her family Anticipated discharge date: 2-[address]: Home
[2020-12-31] MEDS: FLUCONAZOLE 100 MG TAB PO SCH (13:56)
[2020-12-31 16:45] LABS: Glucose,Whole Blood 159 mg/dL (75-99)
[2020-12-31 22:13] LABS: Glucose,Whole Blood 222 mg/dL (75-99)
[2020-12-31] MEDS: INSULIN DETEMIR (LEVEMIR) 100 UNIT/ML SYR SQ SCH (22:24)
[2021-01-01] MEDS ORDERED: ACETAMINOPHEN TAB 325 MG TAB PO ONE
[2021-01-01] MEDS: PIPERACILLIN-TAZOBACTAM 3.375 GM in SODIUM CHLORIDE 0.9% 100 ML IVPB SCH ×2 (03:04→10:00)
[2021-01-01 07:04] LABS: Glucose,Whole Blood 121 mg/dL (75-99)
[2021-01-01] MEDS: SYMBICORT 160-4.5 MCG INHALER INHALATION SCH (07:19)
[2021-01-01 08:05] VITALS: PULSE 67; RESP 16
[2021-01-01] MEDS: INSULIN ASPART (NovoLOG) 100 UNIT/ML VIAL SQ SCH ×2 (08:30→13:53)
[2021-01-01] MEDS: HEPARIN SODIUM,PORCINE/PF 5,000 UNIT/0.5 ML SYRINGE SQ SCH (08:30)
[2021-01-01] MEDS: METOPROLOL TARTRATE 25 MG TAB PO SCH (08:31)
[2021-01-01] MEDS: METHYLPHENIDATE HCL 5 MG TAB PO SCH (08:31)
[2021-01-01] MEDS: lamoTRIgine 100 MG TAB PO SCH (08:31)
[2021-01-01] MEDS: FLUCONAZOLE 100 MG TAB PO SCH (08:31)
[2021-01-01] MEDS: ASPIRIN 81 MG PO SCH (08:31)
[2021-01-01] MEDS: LACOSAMIDE 50 MG TABLET PO SCH (08:32)
[2021-01-01] MEDS: risperiDONE 2 MG TAB PO SCH (08:32)
[2021-01-01] MEDS: LEVOTHYROXINE 88 MCG TAB PO SCH (08:33)
[2021-01-01] MEDS: FLUTICASONE 50MCG/SPRAY NASAL 16GM EA NOSTRIL SCH (08:34)
[2021-01-01] MEDS: HYDROCORTISONE 10 MG TAB PO SCH (08:35)
[2021-01-01] MEDS: DOCUSATE 100 MG CAP PO SCH (08:40)
[2021-01-01 10:05] LABS: Basophils # (A) 0.03 X 10*3/uL (0.00-0.10); Basophils % (A) 0.3 %; Eosinophils # (A) 0.09 X 10*3/uL (0.04-0.35); Eosinophils % (A) 0.9 %; HCT 30.2 % (37.2-46.3); HGB 9.5 g/dL (12.0-15.0); Lymphocytes # (A) 3.49 X 10*3/uL (0.90-5.00); Lymphocytes % (A) 33.9 %; MCH 28.4 pg (27.0-32.0); MCHC 31.5 g/dL (32.0-37.0); MCV 90.4 fL (80.0-97.0); Mean Platelet Volume 11.4 fL (9.5-12.2); Monocytes # (A) 0.52 X 10*3/uL (0.20-1.00); Monocytes % (A) 5.1 %; Neutrophils # (A) 6.09 X 10*3/uL (1.80-7.70); Neutrophils % (A) 59.1 %; Platelet Count 164 X 10*3/uL (140-440); RBC 3.34 X 10*6/uL (4.10-5.20); RDW 13.2 % (11.5-14.5); WBC 10.29 X 10*3/uL (4.50-10.00)
[2021-01-01 11:19] LABS: African American GFR (CKD) 80.8 (60.0-200.0); BUN/Creat Ratio 14.27 Ratio (12.00-20.00); Blood Urea Nitrogen 15.7 mg/dL (9.0-27.0); Calcium 8.5 mg/dL (8.7-10.3); Magnesium 2.2 mg/dL (1.5-2.4); Non-African American GFR(CKD) 69.7 (60.0-200.0); Phosphorus 3.4 mg/dL (2.4-5.1); Potassium 4.2 mmol/L (3.5-5.5)
[2021-01-01 11:53] LABS: Glucose,Whole Blood 278 mg/dL (75-99)
[2021-01-01 13:52] VITALS: BP 155/100; TEMP 99
--- NOTE | 2021-01-01 14:05 | P.DS ---
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 She also had suprapubic sharp abdominal discomfort with radiation to the left flank with associated dysuria. Pain was sharp in nature, alleviated by laying in position, no exacerbating features. At home, she had a temperature of 99.5F. The patient denied chest discomfort, shortness of breath, nausea, vomiting, diarrhea. Denied She also reported some blood in the urine. The mother reports that the patient has had multiple UTI over the years though has never had a workup done with a urologist. In the emergency room, laboratory evaluation was remarkable for leukocytosis of 13.1 and UA consistent with UTI. A CT abdomen and pelvis without contrast revealed a nonobstructing left renal calculus but was otherwise unremarkable. Due to all of the above she was admitted to the hospital for further evaluation and management. Patient was diagnosed with polynephritis. She was initiated on Zosyn. Of note she has cephalosporin allergy w/ history of multi-resistent Enterococcus faecalis UTI growth. Diflucan was added to prevent fungal infection which she frequently gets when getting IV antibiotics. She was also treated with IV fluids and IV morphine. Patient also had an MELONIE during the hospitalization. Urology was consulted due to the computed tomography scan finding, no surgical intervention was advised. The steroids that she normally gets for [place] disease were doubled during the hospitalization due to increasing stress from the infection. On the day of discharge her creatinine came back to normal. She is currently feeling very well and back to her normal, will be discharged home in a stable condition. Discharge diagnoses Acute sepsis due to pyelonephritis MELONIE Recurrent urinary tract infection Patient Condition at Discharge: Serious Plan - Discharge Summary New Discharge Prescriptions: New Amoxicillin 875 mg PO Q12HR 10 Days #20 tablet Fluconazole [Diflucan] 100 mg PO DAILY 10 Days #10 tab Continue Omeprazole [PriLOSEC] 20 mg PO HS Methylphenidate HCl [Concerta] 54 mg PO DAILY LORazepam [Ativan] 1 mg PO TID PRN PRN Reason: Seizures Loratadine [Claritin] 10 mg PO DAILY Lacosamide [Vimpat] 200 mg PO BID Fluticasone Nasal Ford [Flonase Nasal Ford] 1 spray EA NOSTRIL BID clonazePAM [Clonazepam] 2 mg PO BID PRN PRN Reason: seizure > 3 minutes Docusate [Colace] 100 mg PO BID Ipratropium Nebulized [Atrovent Nebulized 0.2 MG/ML] 0.5 mg INHALATION RT-QID PRN PRN Reason: Dyspnea Albuterol Nebulized [Ventolin Nebulized] 2.5 mg INHALATION RT-QID PRN PRN Reason: Dyspnea Levothyroxine Sodium [Synthroid] 175 mcg PO DAILY Ipratropium Sebastian [Atrovent Hfa] 2 puff INHALATION RT-QID PRN PRN Reason: Dyspnea risperiDONE [RisperDAL] 2 mg PO BID Ibuprofen [Motrin] 800 mg PO Q8HR PRN #20 tab PRN Reason: Pain Somatropin [Norditropin Flexpro] 0.5 mg SQ HS Aspirin EC [Ecotrin Low Dose] 81 mg PO DAILY EPINEPHrine [Epipen 2-Meek] 0.3 mg IM ONCE PRN #1 pack PRN Reason: Anaphylaxis Mometasone/Formoterol [Dulera 200 Mcg-5 Mcg Inhaler] 2 puff INHALATION RT- DAILY Insulin Glargine,Hum.rec.anlog [Lantus Solostar Pen] 15 unit SQ HS Liraglutide [Victoza 3-Meek] 1.8 mg SQ DAILY Metoprolol Tartrate [Lopressor] 25 mg PO TID Hydrocortisone 2.5 mg PO HS Glucagon [Baqsimi] 1 spray NASAL DIRECTED PRN PRN Reason: Blood Sugar - Low metFORMIN HCL [Glucophage] 500 mg PO DAILY Norelgestromin/Ethin.estradiol [Zafemy 150-35 Mcg/Day Patch] 1 patch TRANSDERM FR Albuterol Sulfate [Proair Hfa] 2 puff INHALATION RT-Q6H PRN PRN Reason: Shortness Of Breath Liraglutide [Victoza 3-Meek] 1.8 mg SQ DAILY lamoTRIgine [LaMICtal] 200 mg PO BID Hydrocortisone 5 mg PO DAILY Discharge Medication List Albuterol Nebulized [Ventolin Nebulized] 2.5 mg INHALATION RT-QID PRN 02/19/16 [History] Docusate [Colace] 100 mg PO BID 02/19/16 [History] Fluticasone Nasal Ford [Flonase Nasal Ford] 1 spray EA NOSTRIL BID 02/19/16 [History] Ipratropium Nebulized [Atrovent Nebulized 0.2 MG/ML] 0.5 mg INHALATION RT-QID PRN 02/19/16 [History] LORazepam [Ativan] 1 mg PO TID PRN 02/19/16 [History] Lacosamide [Vimpat] 200 mg PO BID 02/19/16 [History] Loratadine [Claritin] 10 mg PO DAILY 02/19/16 [History] Methylphenidate HCl [Concerta] 54 mg PO DAILY 02/19/16 [History] Omeprazole [PriLOSEC] 20 mg PO HS 02/19/16 [History] clonazePAM [Clonazepam] 2 mg PO BID PRN 02/19/16 [History] Ibuprofen [Motrin] 800 mg PO Q8HR PRN #20 tab 05/11/16 [Rx] Ipratropium Sebastian [Atrovent Hfa] 2 puff INHALATION RT-QID PRN 05/11/16 [Histo ry] Levothyroxine Sodium [Synthroid] 175 mcg PO DAILY 05/11/16 [History] risperiDONE [RisperDAL] 2 mg PO BID 05/11/16 [History] Aspirin EC [Ecotrin Low Dose] 81 mg PO DAILY 08/17/16 [History] Somatropin [Norditropin Flexpro] 0.5 mg SQ HS 08/17/16 [History] EPINEPHrine [Epipen 2-Meek] 0.3 mg IM ONCE PRN #1 pack 07/03/18 [Rx] Mometasone/Formoterol [Dulera 200 Mcg-5 Mcg Inhaler] 2 puff INHALATION RT-DAILY 06/28/19 [History] Glucagon [Baqsimi] 1 spray NASAL DIRECTED PRN 11/27/20 [History] Hydrocortisone 2.5 mg PO HS 11/27/20 [History] Hydrocortisone 5 mg PO DAILY 11/27/20 [History] Insulin Glargine,Hum.rec.anlog [Lantus Solostar Pen] 15 unit SQ HS 11/27/20 [History] Liraglutide [Victoza 3-Meek] 1.8 mg SQ DAILY 11/27/20 [History] Metoprolol Tartrate [Lopressor] 25 mg PO TID 11/27/20 [History] lamoTRIgine [LaMICtal] 200 mg PO BID 11/27/20 [History] metFORMIN HCL [Glucophage] 500 mg PO DAILY 11/27/20 [History] Albuterol Sulfate [Proair Hfa] 2 puff INHALATION RT-Q6H PRN 12/29/20 [History] Norelgestromin/Ethin.estradiol [Zafemy 150-35 Mcg/Day Patch] 1 patch TRANSDERM FR 12/29/20 [History] Liraglutide [Victoza 3-Meek] 1.8 mg SQ DAILY 12/30/20 [History] Amoxicillin 875 mg PO Q12HR 10 Days #20 tablet 01/01/21 [Rx] Fluconazole [Diflucan] 100 mg PO DAILY 10 Days #10 tab 01/01/21 [Rx] Follow up Appointment(s)/Referral(s): Oumar Ramírez MD [Primary Care Provider] - 1-2 days Patient Instructions/Handouts: Urinary Tract Infection in Women (DC)
--- NOTE | 2021-01-07 09:00 | CDI ---
Documentation Clarification Form Date: 01/07/2021 08:25:12 AM From: Kassy Gómez Rn, CCDS Admit Date: 12/30/2020 02:38:00 AM Patient Name: Santos Elizalde Visit Number: [id number] Discharge Date: 01/01/2021 02:55:00 PM ATTENTION: The Clinical Documentation Specialists (CDI) and [facility] Coding Staff appreciate your assistance in clarifying documentation. Please respond to the clarification below the line at the bottom and electronically sign. The CDI & [facility] Coding staff will review the response and follow-up if needed. Please note: Queries are made part of the Legal Health Record. If you have any questions, please contact the author of this message via ITS. Dr. Betzy Albright Sepsis is documented 01/01 which may lack sufficient clinical evidence/support in the medical record. Additional clarification is requested. History/Risk Factors: Asthma, Dm2, Fibromyalgia, SVT, Stenosis of MCA and Carotid Arteries, Dysautonomia, Pulmonary Fibrosis Clinical Indicators: 12/30 H&P: Polynephritis with MDR Enterococcus faecalis UTI, [place]'s disease, Asthma, DM, Seizure Disorder, hypopituitarism 12/30 2219 Admission: Temp 98.7, HR 98, RR 22, B/P 143/89, Spo2 99% RA 01/01 2000 temp 99.8, HR 82, RR 18, B/P 94/58, Spo2 93% RA 01/01 D/C Summary: "Acute sepsis due to pyelonephritis." 12/29-01/01 WBC: 13.1/13.03/11.1/10.29, Neuts: 8/7.2/6.09 12/29 U/A" Cloudy, +1 Protein, Large Blood , Positive Nitrate, Large leukocyte Esterase, >182 RBC, >182 WBC, many WBC clumps, + Squamous Epith cells, Occasional bacteria, occasional mucus Treatment: 12/29 1L 0.9%NS IV bolus 12/30 Zosyn 3.375 Gm IVPB OT 12/30 0.9% NS @ 50 cc/hr. then increased to 130 cc/hr. Please clarify if [insert diagnosis] is a valid diagnosis? [ ] Yes, Sepsis POA is present as evidence by (additional clinical support): [ ] Yes, Sepsis Not POA is present as evidence by (additional clinical support): [ ] No, Sepsis is ruled out [ ] Other (please specify diagnosis) [ ] Unable to determine (Template Last Revised: April 2020) MTDD
== END 2021-01-01 14:55 | disposition home or self-care (01) ==
LOC: EC 21:59 → INTOOBSV 12-30 02:38 → 4SSUR 12-30 02:38 → UNDODISIN 01-01 14:55
PROVIDERS: ADMIT Internal Medicine; ATTEND Internal Medicine
DX: A41.9 Sepsis, unspecified organism (principal); N12 Tubulo-interstitial nephritis, not specified as acute or chronic; N17.9 Acute kidney failure, unspecified; E23.0 Hypopituitarism; E27.1 Primary adrenocortical insufficiency; J45.909 Unspecified asthma, uncomplicated; G40.909 Epilepsy, unspecified, not intractable, without status epilepticus; R31.9 Hematuria, unspecified; N20.0 Calculus of kidney; B95.2 Enterococcus as the cause of diseases classified elsewhere; R71.0 Precipitous drop in hematocrit; M21.372 Foot drop, left foot; M79.7 Fibromyalgia; K21.9 Gastro-esophageal reflux disease without esophagitis; I47.1 Supraventricular tachycardia; G90.1 Familial dysautonomia [Riley-Day]; I73.00 Raynaud's syndrome without gangrene; H54.61 Unqualified visual loss, right eye, normal vision left eye; H91.90 Unspecified hearing loss, unspecified ear; N30.90 Cystitis, unspecified without hematuria; J84.10 Pulmonary fibrosis, unspecified; E11.40 Type 2 diabetes mellitus with diabetic neuropathy, unspecified; M81.0 Age-related osteoporosis without current pathological fracture; F90.9 Attention-deficit hyperactivity disorder, unspecified type; F41.9 Anxiety disorder, unspecified; I10 Essential (primary) hypertension; I66.09 Occlusion and stenosis of unspecified middle cerebral artery; I65.29 Occlusion and stenosis of unspecified carotid artery; G83.24 Monoplegia of upper limb affecting left nondominant side; Z20.822 Contact with and (suspected) exposure to COVID-19; Z87.440 Personal history of urinary (tract) infections; Z85.841 Personal history of malignant neoplasm of brain; Z90.49 Acquired absence of other specified parts of digestive tract; Z94.81 Bone marrow transplant status; Z79.899 Other long term (current) drug therapy; Z79.890 Hormone replacement therapy; Z79.82 Long term (current) use of aspirin; Z79.4 Long term (current) use of insulin; Z79.84 Long term (current) use of oral hypoglycemic drugs; Z79.51 Long term (current) use of inhaled steroids; Z88.1 Allergy status to other antibiotic agents; Z88.8 Allergy status to other drugs, medicaments and biological substances; Z91.040 Latex allergy status; Z88.5 Allergy status to narcotic agent; Z91.013 Allergy to seafood; Z16.24 Resistance to multiple antibiotics; Z83.3 Family history of diabetes mellitus; Z84.89 Family history of other specified conditions
CPT/HCPCS: 96376 ×2; 96366 ×3; 96372 ×3; 96361; 96365; 96375; 99285; 36415; 94640 ×2; 80053; 80048 ×3; 83605; 83690; 83735; 84100; 85025 ×3; 85027; 81001; 81025; 87086; 87077; 87186; 83036; 87635; 74176; G0378 ×3; J2543 ×3; J2405; J2270 ×2; J1885 ×2; J1644 ×3; 96374

== ENCOUNTER → 2021-01-13 | Outpatient (CLI) | payer OTHER ==
[2021-01-13 22:32] LABS: Basophils # (A) 0.04 X 10*3/uL (0.00-0.10); Basophils % (A) 0.4 %; Eosinophils # (A) 0.08 X 10*3/uL (0.04-0.35); Eosinophils % (A) 0.9 %; HCT 35.5 % (37.2-46.3); HGB 11.1 g/dL (12.0-15.0); Lymphocytes # (A) 3.21 X 10*3/uL (0.90-5.00); Lymphocytes % (A) 34.7 %; MCH 29.4 pg (27.0-32.0); MCHC 31.3 g/dL (32.0-37.0); MCV 94.2 fL (80.0-97.0); Mean Platelet Volume 10.3 fL (9.5-12.2); Monocytes # (A) 0.38 X 10*3/uL (0.20-1.00); Monocytes % (A) 4.1 %; Neutrophils % (A) 59.5 %; Platelet Count 346 X 10*3/uL (140-440); RBC 3.77 X 10*6/uL (4.10-5.20); RDW 13.7 % (11.5-14.5); WBC 9.25 X 10*3/uL (4.50-10.00)
[2021-01-14 00:40] LABS: Erythrocyte Sedimentation Rate 73 mm/Hr (0-20)
[2021-01-14 00:50] LABS: ALT 81 U/L (8-44); AST 123 U/L (13-35); African American GFR (CKD) 94.7 (60.0-200.0); Albumin/Globulin Ratio 1.38 (1.60-3.17); Alkaline Phosphatase 131 U/L (41-126); BUN/Creat Ratio 13.78 Ratio (12.00-20.00); Blood Urea Nitrogen 13.3 mg/dL (9.0-27.0); Calcium 9.8 mg/dL (8.7-10.3); Carbon Dioxide 25.9 mmol/L (21.6-31.8); Chloride 101 mmol/L (96-109); Globulin 2.9 g/dL (1.6-3.3); Glucose 204 mg/dL (70-110); Non-African American GFR(CKD) 81.7 (60.0-200.0); Potassium 4.4 mmol/L (3.5-5.5); Sodium 142 mmol/L (135-145); Total Bilirubin <0.20 mg/dL (0.30-1.20); Total Protein 6.9 g/dL (6.2-8.2)
== END | disposition home or self-care (01) ==
LOC: LABWHC1 13:09
PROVIDERS: ATTEND Family Medicine
DX: N12 Tubulo-interstitial nephritis, not specified as acute or chronic (principal)
CPT/HCPCS: 36415; 80053; 85025; 85652; 86140

== ENCOUNTER → 2021-06-20 | Outpatient (CLI) | payer OTHER ==
[2021-06-20 10:47] LABS: Basophils # (A) 0.03 X 10*3/uL (0.00-0.10); Basophils % (A) 0.3 %; Eosinophils # (A) 0.17 X 10*3/uL (0.04-0.35); Eosinophils % (A) 1.6 %; HCT 36.3 % (37.2-46.3); HGB 11.2 g/dL (12.0-15.0); Immature Grans, Automated 0.4 %; Lymphocytes # (A) 4.49 X 10*3/uL (0.90-5.00); Lymphocytes % (A) 41.5 %; MCH 28.6 pg (27.0-32.0); MCHC 30.9 g/dL (32.0-37.0); MCV 92.8 fL (80.0-97.0); Mean Platelet Volume 10.7 fL (9.5-12.2); Monocytes # (A) 0.46 X 10*3/uL (0.20-1.00); Monocytes % (A) 4.3 %; NRBC Per 100 WBC 0 /100 WBCS (0.0-0.0); Neutrophils # (A) 5.63 X 10*3/uL (1.80-7.70); Neutrophils % (A) 51.9 %; Platelet Count 290 X 10*3/uL (140-440); RBC 3.91 X 10*6/uL (4.10-5.20); RDW 13.7 % (11.5-14.5); WBC 10.82 X 10*3/uL (4.50-10.00)
[2021-06-20 11:20] LABS: Follicle Stimulating Hormone 0.8 mIU/mL; Luteinizing Hormone 1.2 mIU/mL
[2021-06-20 11:59] LABS: % Iron Saturation 7.45 (12.00-45.00); ALT 109 U/L (8-44); AST 125 U/L (13-35); Albumin 4.3 g/dL (3.8-4.9); Albumin/Globulin Ratio 1.39 (1.60-3.17); Alkaline Phosphatase 111 U/L (41-126); BUN/Creat Ratio 16.56 Ratio (12.00-20.00); Blood Urea Nitrogen 14.9 mg/dL (9.0-27.0); Calcium 9.6 mg/dL (8.7-10.3); Carbon Dioxide 26.6 mmol/L (20.0-27.5); Chloride 105 mmol/L (96-109); Globulin 3.1 g/dL (1.6-3.3); Glucose 81 mg/dL (70-110); Iron 41 ug/dL (50-170); Non-African American GFR(CKD) 88.9 (60.0-200.0); Potassium 3.7 mmol/L (3.5-5.5); Sodium 145 mmol/L (135-145); Total Bilirubin <0.15 mg/dL (0.30-1.20); Total Iron Binding Capacity 554 ug/dL (228-460); Total Protein 7.4 g/dL (6.2-8.2)
[2021-06-20 18:04] LABS: Appearance,Urine Turbid (Clear); Bacteria,Urine 3+ /HPF (None Seen); Bilirubin,Urine Negative (Negative); Blood,Urine Large (Negative); Calcium Oxalate Crystals,Urine Present /LPF (None Seen); Color,Urine Yellow (Yellow); Ketones,Urine Negative (Negative); Nitrite,Urine Negative (Negative); Specific Gravity,Urine 1.029 (1.001-1.030); Urobilinogen,Urine 0.2 (0.2,1.0)
== END | disposition home or self-care (01) ==
LOC: LABWHC1 07:55
PROVIDERS: ATTEND Family Medicine
DX: E03.9 Hypothyroidism, unspecified (principal); E27.1 Primary adrenocortical insufficiency; E23.0 Hypopituitarism; E11.65 Type 2 diabetes mellitus with hyperglycemia; R53.83 Other fatigue
CPT/HCPCS: 36415; 80053; 81001; 82024; 82306; 82533; 82607; 82728; 82746; 83001; 83002; 83036; 83540; 83550; 84146; 84439; 84443; 84481; 85025

== ENCOUNTER → 2021-08-20 | Outpatient (CLI) | payer OTHER ==
--- NOTE | 2021-08-20 22:26 | MR ---
EXAMINATION TYPE: MR brain wo con DATE OF EXAM: 08/20/2021 COMPARISON: CT brain September 12, 2018 HISTORY: Epilepsy, hx of glioblastoma TECHNIQUE: Multiplanar, multisequence imaging of the brain and brainstem is performed without IV cont rast. IV contrast cannot be given because of IV access could not be obtained despite multiple attempt s. FINDINGS: Diffusion weighted images demonstrate no evidence of a recent infarct or other diffusion abnormality. Redemonstration of right frontal posttreatment changes with resection cavity and encephalomalacia. Pe rsistent ex vacuo dilatation of the frontal horn right lateral ventricle. The ventricular system and cisternal spaces otherwise are normal in size and appearance. The brain volume is otherwise age appr opriate. Midline structures demonstrate resection genu of the corpus callosum. There is poor visualization of the pituitary gland. The craniocervical junction appears within normal limits. Normal vascular flow v oids are present. The visualized sinuses are clear and the globes are intact. IMPRESSION: Suboptimal study. Posttreatment changes redemonstrated. No new obvious mass effect presen t.
== END | disposition home or self-care (01) ==
LOC: RADMRIMAIN 12:24
PROVIDERS: ATTEND Psychiatry & Neurology Neurology
DX: T42.75XA Adverse effect of unspecified antiepileptic and sedative-hypnotic drugs, initial encounter (principal); G40.909 Epilepsy, unspecified, not intractable, without status epilepticus
CPT/HCPCS: 70551

== ENCOUNTER 2022-05-24 14:48 | Emergency (ER) | payer OTHER ==
[2022-05-24] MEDS ORDERED: SODIUM CHLORIDE 0.9% 500 ML 500 ML IV STA (15:15)
[2022-05-24] MEDS ORDERED: Alteplase PER PHARMACY Stroke 1 EACH MISC MISCELLANE PRN (15:19)
[2022-05-24 15:20] LABS: Glucose,Whole Blood 132 mg/dL (70-110)
[2022-05-24] MEDS ORDERED: ALTEPLASE BOLUS FOR STROKE 8 MG in EMPTY SYRINGE 1 SYR IV STA (15:20)
[2022-05-24] MEDS ORDERED: ALTEPLASE 70 MG in EMPTY BAG 1 BAG IV STA (15:20)
[2022-05-24 15:27] LABS: Basophils % (A) 1 %; Eosinophils # (A) 0.2 k/uL (0-0.7); Eosinophils % (A) 2 %; HCT 34.7 % (34.0-46.0); HGB 11.6 gm/dL (11.4-16.0); Lymphocytes # (A) 3.3 k/uL (1.0-4.8); Lymphocytes % (A) 38 %; MCH 29.5 pg (25.0-35.0); MCHC 33.4 g/dL (31.0-37.0); MCV 88.2 fL (80.0-100.0); Monocytes # (A) 0.4 k/uL (0-1.0); Monocytes % (A) 4 %; Neutrophils # (A) 4.7 k/uL (1.3-7.7); Neutrophils % (A) 53 %; Platelet Count 238 k/uL (150-450); RBC 3.93 m/uL (3.80-5.40); RDW 13.7 % (11.5-15.5); WBC 8.8 k/uL (3.8-10.6)
[2022-05-24 15:33] VITALS: RESP 18
--- NOTE | 2022-05-24 15:34 | CT ---
EXAMINATION TYPE: CT brain wo con for TPA DATE OF EXAM: 05/24/2022 COMPARISON: 09/12/2018 HISTORY: Neuro deficit, acute, stroke suspected CT DLP: 1162.6 mGycm Automated exposure control for dose reduction was used. FINDINGS: There is a large area of encephalomalacia involving the right frontal lobe with marked ex vacuo dilat ation of the right lateral ventricle. This was seen on the prior study and is stable. No new abnormal density is seen throughout the brain parenchyma. There is no acute intra or extra-axial hemorrhage. Grossly the posterior fossa including the brainstem, fourth ventricle and cerebellar pontine angles a ppear normal. The intraorbital contents appear normal and symmetric. Visualized paranasal sinuses and mastoid air c ells are well aerated. IMPRESSION: 1. No acute bleed or mass effect. 2. 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 3. Stable head CT compared to the prior study dated 09/12/2018
[2022-05-24 15:40] LABS: INR 0.9 (<1.2); Partial Thromboplastin Time 22.1 sec (22.0-30.0); Prothrombin Time 9.7 sec (9.0-12.0)
[2022-05-24 15:41] LABS: Albumin 4.1 g/dL (3.5-5.0); Calcium 9.1 mg/dL (8.4-10.2); Potassium 4.2 mmol/L (3.5-5.1); Total Bilirubin 0.5 mg/dL (0.2-1.3); Total Protein 7.2 g/dL (6.3-8.2)
--- NOTE | 2022-05-24 15:44 | ED ---
Headache HPI - General Chief Complaint: Headache Stated Complaint: Stroke Symptoms Time Seen by Provider: 05/24/22 15:04 Source: RN notes reviewed, old records reviewed Mode of arrival: wheelchair Limitations: no limitations - History of Present Illness Initial Comments: This is a 26-year-old female to the for evaluation. Patient presents today for evaluation of strokelike symptoms blurry vision right-sided weakness. Patient has a significant medical history significant neurological history with brain surgery for glioblastoma 20 years ago. Patient presents with mother and grandmother who are makers concern for the [facility] with history of TIA. Patient does have history of TIAs with history of results and headaches and some dizziness. Patient is currently having a mild headache but nothing out of the ordinary for her. Patient states she is able to ambulate mainly concerned over bloated MD Complaint: headache, "migraine", other (Neurological symptoms strokelike symptoms) -: hour(s) (1.5) Onset Description: sudden Location: frontal Severity: moderate Severity scale (1-10): 4 Quality: throbbing, sharp Consistency: intermittent Improves With: nothing Worsens With: none Associated Symptoms: nausea, weakness (Right sided), other (Blurry vision) Treatments Prior to Arrival: none - Related Data Home Medications Medication Instructions Recorded Confirmed Albuterol Nebulized [Ventolin 2.5 mg INHALATION RT-QID PRN 02/19/16 12/29/20 Nebulized] Docusate [Colace] 100 mg PO BID 02/19/16 12/29/20 Fluticasone Nasal [place] [Flonase 1 spray EA NOSTRIL BID 02/19/16 12/29/20 Nasal [place]] Ipratropium Nebulized [Atrovent 0.5 mg INHALATION RT-QID PRN 02/19/16 12/29/20 Nebulized 0.2 MG/ML] LORazepam [Ativan] 1 mg PO TID PRN 02/19/16 12/29/20 Lacosamide [Vimpat] 200 mg PO BID 02/19/16 12/29/20 Loratadine [Claritin] 10 mg PO DAILY 02/19/16 12/29/20 Methylphenidate HCl [Concerta] 54 mg PO DAILY 02/19/16 12/29/20 Omeprazole [PriLOSEC] 20 mg PO HS 02/19/16 12/29/20 clonazePAM [Clonazepam] 2 mg PO BID PRN 02/19/16 12/29/20 Ipratropium [place] [Atrovent Hfa] 2 puff INHALATION RT-QID PRN 05/11/16 12/29/20 Levothyroxine Sodium [Synthroid] 175 mcg PO DAILY 05/11/16 12/29/20 risperiDONE [RisperDAL] 2 mg PO BID 05/11/16 12/29/20 Aspirin EC [Ecotrin Low Dose] 81 mg PO DAILY 08/17/16 12/29/20 Somatropin [Norditropin Flexpro] 0.5 mg SQ HS 08/17/16 12/29/20 Mometasone/Formoterol [Dulera 200 2 puff INHALATION RT-DAILY 06/28/19 12/29/20 Mcg-5 Mcg Inhaler] Glucagon [Baqsimi] 1 spray NASAL DIRECTED PRN 11/27/20 12/29/20 Hydrocortisone 2.5 mg PO HS 11/27/20 12/29/20 Hydrocortisone 5 mg PO DAILY 11/27/20 12/29/20 Insulin Glargine,Hum.rec.anlog 15 unit SQ HS 11/27/20 12/29/20 [Lantus Solostar Pen] Liraglutide [Victoza 3-Meek] 1.8 mg SQ DAILY 11/27/20 12/29/20 Metoprolol Tartrate [Lopressor] 25 mg PO TID 11/27/20 12/29/20 lamoTRIgine [LaMICtal] 200 mg PO BID 11/27/20 12/29/20 metFORMIN HCL [Glucophage] 500 mg PO DAILY 11/27/20 12/29/20 Albuterol Sulfate [Proair Hfa] 2 puff INHALATION RT-Q6H PRN 12/29/20 12/29/20 Norelgestromin/Ethin.estradiol 1 patch TRANSDERM FR 12/29/20 12/29/20 [Zafemy 150-35 Mcg/Day Patch] Liraglutide [Victoza 3-Meek] 1.8 mg SQ DAILY 12/30/20 12/30/20 Previous Rx's Medication Instructions Recorded Ibuprofen [Motrin] 800 mg PO Q8HR PRN #20 tab 05/11/16 EPINEPHrine [Epipen 2-Meek] 0.3 mg IM ONCE PRN #1 pack 07/03/18 Amoxicillin 875 mg PO Q12HR 10 Days #20 tablet 01/01/21 Fluconazole [Diflucan] 100 mg PO DAILY 10 Days #10 tab 01/01/21 Allergies Allergy/AdvReac Type Severity Reaction Status Date / Time cefuroxime Allergy Rash/Hives Verified 05/24/22 14:50 latex Allergy Swelling Verified 05/24/22 14:50 nifedipine [From Procardia] Allergy Unknown Verified 05/24/22 14:50 shrimp Allergy Anaphylaxis Verified 05/24/22 14:50 acetaminophen [From Stella] AdvReac Rash/Hives Verified 05/24/22 14:50 gabapentin AdvReac altered Verified 05/24/22 14:50 mental status hydrocodone [From Stella] AdvReac Unknown Verified 05/24/22 14:50 hydromorphone [From Dilaudid] AdvReac Chest Pain Verified 05/24/22 14:50 levetiracetam [From Keppra] AdvReac Toxic Verified 05/24/22 14:50 Levels metoclopramide [From Reglan] AdvReac [place] Verified 05/24/22 14:50 Seizure pentamidine isethionate AdvReac Severe Pain Verified 05/24/22 14:50 pregabalin [From Lyrica] AdvReac Altered Verified 05/24/22 14:50 Mental Status Review of Systems ROS Statement: Those systems with pertinent positive or pertinent negative responses have been documented in the HPI. ROS Other: All systems not noted in ROS Statement are negative. Past Medical History Past Medical History: Asthma, Cancer, Chest Pain / Angina, Diabetes Mellitus, Fibromyalgia, GERD/Reflux, Hypertension, Seizure Disorder, Supraventricular Tachycardia (SVT), Thyroid Disorder Additional Past Medical History / Comment(s): glioblastomamultiform stage 4-dx. 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 uses cane, Dysautonomia; Raynauds; Blindness right eye; Hearing loss; Pulmonary Fibrosis, neuropathy, panhypopitituarism- addisons disease, osteoporosis History of Any Multi-Drug Resistant Organisms: None Reported Past Surgical History: Adenoidectomy, Appendectomy, Cholecystectomy, Tonsillectomy Additional Past Surgical History / Comment(s): craniotomy x2-right frontal lobe removed, broviac and portacath with subsequent removal of both. bone marrow transplant, Past Anesthesia/Blood Transfusion Reactions: Family History of Problems w/ Anesthesia, Motion Sickness, Postoperative Nausea & Vomiting (PONV) Additional Past Anesthesia/Blood Transfusion Reaction / Comment(s): mother PONV Past Psychological History: ADD/ADHD, Anxiety Smoking Status: Never smoker Past Alcohol Use History: None Reported Past Drug Use History: None Reported - Past Family History Mother Family Medical History: No Reported History Sister(s) Additional Family Medical History / Comment(s): raynauds Grandfather Family Medical History: Diabetes Mellitus Uncles Family Medical History: Diabetes Mellitus General Exam - General Exam Comments Initial Comments: NIH of 1, sensation right arm leg Limitations: no limitations General appearance: alert, in no apparent distress Head exam: Present: atraumatic, normocephalic, normal inspection Eye exam: Present: normal appearance, PERRL, EOMI. Absent: scleral icterus, conjunctival injection, periorbital swelling ENT exam: Present: normal exam, mucous membranes moist Neck exam: Present: normal inspection. Absent: tenderness, meningismus, lym phadenopathy Respiratory exam: Present: normal lung sounds bilaterally. Absent: respiratory distress, wheezes, rales, rhonchi, stridor Cardiovascular Exam: Present: regular rate, normal rhythm, normal heart sounds. Absent: systolic murmur, diastolic murmur, rubs, gallop, clicks GI/Abdominal exam: Present: soft, normal bowel sounds. Absent: distended, tenderness, guarding, rebound, rigid Extremities exam: Present: normal inspection, full ROM, normal capillary refill. Absent: tenderness, pedal edema, joint swelling, calf tenderness Back exam: Present: normal inspection Neurological exam: Present: alert, oriented X3, CN II-XII intact Psychiatric exam: Present: normal affect, normal mood Skin exam: Present: warm, dry, intact, normal color. Absent: rash Course Vital Signs 05/24/22 05/24/22 05/24/22 14:50 15:32 16:44 Temperature 98.1 F 97.9 F Pulse Rate 82 73 67 Respiratory 16 18 Rate Blood Pressure 115/77 113/59 104/59 O2 Sat by Pulse 97 97 98 Oximetry - Reevaluation(s) Reevaluation #1: 05/24/22 17:24 Medical records reviewed Code alteplase was paged upon patient arrival to emergency department 05/24/22 17:24 Decision made for no alteplase here in the emergency department secondary to improving symptoms, risks outweighing benefits, family is agreeable Reevaluation #2: 05/24/22 17:24 Patient does have resolution of symptoms here in the ER Reevaluation #3: 05/24/22 17:25 Patient family informed of results and questions are answered Reevaluation #4: 05/24/22 17:25 Was pt. sent in by a medical professional or institution? @ -no Did you speak to anyone other than the patient for history? @ -parent Did you review nursing and triage notes? @ -agree Were old charts reviewed? @ -prior ED visits Differential Diagnosis? @ -AMS EKG interpreted by me (3pts min.)? @ -yes X-rays interpreted by me (1pt min.)? @ -no CT interpreted by me (1pt min.)? @ -no U/S interpreted by me (1pt. min.)? @ -no What testing was considered but not performed? (CT, X-rays, U/S, labs)? Why? @ no What meds were considered but not given? Why? @ -alteplase, risks greater than benefit Did you discuss the management of the patient with other professionals? @ -no Did you reconcile home meds? @ -no Was smoking cessation discussed for >3mins.? @ -no Was critical care preformed (if so, how long)? @ -yes Were there social determinants of health that impacted care today? How? (Homelessness, low income, unemployed, alcoholism, drug addiction, transportation, low edu. Level, literacy, decrease access to med. care, intermediate, rehab)? @ -no Was there de-escalation of care discussed even if they declined? (Discuss DNR or withdrawal of care, Hospice)? @ -no What co-morbidities impacted this encounter? (DM, HTN, Smoking, COPD, CAD, Cancer, CVA, Hep., AIDS, mental health diagnosis, sleep apnea, morbid obesity)? @ -TIA history, GBM surgery, SZ history Was patient admitted / discharged? @ -dc Undiagnosed new problem with uncertain prognosis? @ -TIA Drug Therapy requiring intensive monitoring for toxicity (Heparin, Nitro, Insulin, Cardizem)? @ -no Were any procedures done? @ -no Diagnosis/symptom? @ -TIA Acute, or Chronic, or Acute on Chronic? @ -acute Uncomplicated (without systemic symptoms) or Complicated (systemic symptoms)? @ -imcomplicated, resolved Side effects of treatment? @ -no Exacerbation, Progression, or Severe Exacerbation] @ -no Poses a threat to life or bodily function? @ -yes Reevaluation #5: 05/24/22 17:25 Differential Altered Mental Status: Hypoglycemia, DKA, hypercapnia, ETOH, overdose, CO poisoning, trauma, myxedema coma, HTN encephalopathy, infection, encephalitis, psychosis, intercranial hemorrhage, hepatic encephalopathy, meningitis, CVA, this is not meant to be an all-inclusive list - Consultations Consultation #1: spoke w Neuro Interventionalist, who is against TPA at this time Medical Decision Making - Medical Decision Making 26 female to the ER for neurological symptoms. Patient is found to have acute TIA here in the ER if symptoms have resolved. Patient will be discharged home patient wanted to go home and now can be discharged home to care of family - Lab Data Result diagrams: 05/24/22 15:19 05/24/22 15:19 Lab Results 05/24/22 05/24/22 05/24/22 Range/Units 15:12 15:19 15:19 WBC 8.8 (3.8-10.6) k/uL RBC 3.93 (3.80-5.40) m/uL Hgb 11.6 (11.4-16.0) gm/dL Hct 34.7 (34.0-46.0) % MCV 88.2 (80.0-100.0) fL MCH 29.5 (25.0-35.0) pg MCHC 33.4 (31.0-37.0) g/dL RDW 13.7 (11.5-15.5) % Plt Count 238 (150-450) k/uL MPV 8.0 Neutrophils % 53 % Lymphocytes % 38 % Monocytes % 4 % Eosinophils % 2 % Basophils % 1 % Neutrophils # 4.7 (1.3-7.7) k/uL Lymphocytes # 3.3 (1.0-4.8) k/uL Monocytes # 0.4 (0-1.0) k/uL Eosinophils # 0.2 (0-0.7) k/uL Basophils # 0.0 (0-0.2) k/uL PT 9.7 (9.0-12.0) sec INR 0.9 (<1.2) APTT 22.1 (22.0-30.0) sec Sodium (137-145) mmol/L Potassium (3.5-5.1) mmol/L Chloride (98-107) mmol/L Carbon Dioxide (22-30) mmol/L Anion Gap mmol/L BUN (7-17) mg/dL Creatinine (0.52-1.04) mg/dL Est GFR (CKD-EPI)AfAm (>60 ml/min/1.73 sqM) Est GFR (CKD-EPI)NonAf (>60 ml/min/1.73 sqM) Glucose (74-99) mg/dL POC Glucose (mg/dL) 132 H (70-110) mg/dL POC Glu [employer] Melanie Benjamin Calcium (8.4-10.2) mg/dL Total Bilirubin (0.2-1.3) mg/dL AST (14-36) U/L ALT (4-34) U/L Alkaline Phosphatase (38-126) U/L Creatine Kinase (30-135) U/L Troponin I (0.000-0.034) ng/mL Total Protein (6.3-8.2) g/dL Albumin (3.5-5.0) g/dL 05/24/22 05/24/22 Range/Units 15:19 15:19 WBC (3.8-10.6) k/uL RBC (3.80-5.40) m/uL Hgb (11.4-16.0) gm/dL Hct (34.0-46.0) % MCV (80.0-100.0) fL MCH (25.0-35.0) pg MCHC (31.0-37.0) g/dL RDW (11.5-15.5) % Plt Count (150-450) k/uL MPV Neutrophils % % Lymphocytes % % Monocytes % % Eosinophils % % Basophils % % Neutrophils # (1.3-7.7) k/uL Lymphocytes # (1.0-4.8) k/uL Monocytes # (0-1.0) k/uL Eosinophils # (0-0.7) k/uL Basophils # (0-0.2) k/uL PT (9.0-12.0) sec INR (<1.2) APTT (22.0-30.0) sec Sodium 140 (137-145) mmol/L Potassium 4.2 (3.5-5.1) mmol/L Chloride 108 H (98-107) mmol/L Carbon Dioxide 25 (22-30) mmol/L Anion Gap 7 mmol/L BUN 14 (7-17) mg/dL Creatinine 1.07 H (0.52-1.04) mg/dL Est GFR (CKD-EPI)AfAm 83 (>60 ml/min/1.73 sqM) Est GFR (CKD-EPI)NonAf 72 (>60 ml/min/1.73 sqM) Glucose 129 H (74-99) mg/dL POC Glucose (mg/dL) (70-110) mg/dL POC Glu [employer] ID Calcium 9.1 (8.4-10.2) mg/dL Total Bilirubin 0.5 (0.2-1.3) mg/dL AST 36 (14-36) U/L ALT 37 H (4-34) U/L Alkaline Phosphatase 90 (38-126) U/L Creatine Kinase 44 (30-135) U/L Troponin I <0.012 (0.000-0.034) ng/mL Total Protein 7.2 (6.3-8.2) g/dL Albumin 4.1 (3.5-5.0) g/dL - EKG Data -: EKG Interpreted by Me (EKG is sinus 77 NC 175 QRS 96 QTc 413) - Radiology Data Radiology results: report reviewed (CT brain CTA had neck negative for acute disease), image reviewed Disposition Clinical Impression: Dizziness, Migraine headache, Headache, TIA (transient ischemic attack) Disposition: HOME SELF-CARE Condition: Good Instructions (If sedation given, give patient instructions): Transient Ischemic Attack (ED), Acute Headache (ED) Is patient prescribed a controlled substance at d/c from ED?: No Referrals: Oumar Ramírez MD [Primary Care Provider] - 1-2 days Time of Disposition: 16:30
--- NOTE | 2022-05-24 15:54 | CT ---
EXAMINATION TYPE: CT angio head neck DATE OF EXAM: 05/24/2022 HISTORY: Neuro deficit, acute, stroke suspected. hx of cerebral and carotid stenosis and hx of gliobl astoma COMPARISON: None CT DLP: 593.1 mGycm. Automated Exposure Control for Dose Reduction was Utilized. TECHNIQUE: CTA scan of the head and neck is performed with IV Contrast, patient injected with 65 mL of Isovue 370, axial images are obtained, coronal and sagittal reformatted images are reviewed. 3D re constructed images are created on an independent workstation and reviewed. 3-D postprocessing was per formed. FINDINGS: The brachiocephalic origins are widely patent without significant stenosis. There is no stenosis of the common or internal carotid arteries within the neck. The prevertebral art eries are widely patent. Symmetric. Intracranially, there is no sizable aneurysm sac, vascular malformation or segmental occlusion. IMPRESSION: No significant abnormality seen in the arterial circulation of the head or neck. NASCET criteria was used in interpretation of this exam?
[2022-05-24] MEDS ORDERED: ASPIRIN 81 MG PO STA (16:07)
[2022-05-24] MEDS ORDERED: SODIUM CHLORIDE 0.9% 50 ML MINI-BAG IV ONE (16:20)
[2022-05-24 16:46] VITALS: BP 104/59; PULSE 67; TEMP 97.9
== END 2022-05-24 16:46 | disposition home or self-care (01) ==
LOC: EC 14:48
DX: G43.909 Migraine, unspecified, not intractable, without status migrainosus (principal); R42 Dizziness and giddiness; G45.9 Transient cerebral ischemic attack, unspecified; F41.9 Anxiety disorder, unspecified; I10 Essential (primary) hypertension; J45.909 Unspecified asthma, uncomplicated; E11.9 Type 2 diabetes mellitus without complications; K21.9 Gastro-esophageal reflux disease without esophagitis; E07.9 Disorder of thyroid, unspecified; Z79.1 Long term (current) use of non-steroidal anti-inflammatories (NSAID); Z79.51 Long term (current) use of inhaled steroids; Z79.82 Long term (current) use of aspirin; Z79.84 Long term (current) use of oral hypoglycemic drugs; Z79.899 Other long term (current) drug therapy; Z88.1 Allergy status to other antibiotic agents; Z88.5 Allergy status to narcotic agent; Z88.8 Allergy status to other drugs, medicaments and biological substances; Z91.040 Latex allergy status; Z90.49 Acquired absence of other specified parts of digestive tract
CPT/HCPCS: 36415; 93005; 80053; 82550; 84484; 85025; 85610; 85730; 70496; 70450; 70498; 99284; Q9967

== ENCOUNTER 2022-08-17 23:01 | Observation (INO) | payer OTHER ==
[2022-08-17 23:07] LABS: Glucose,Whole Blood 146 mg/dL (70-110)
[2022-08-17 23:14] LABS: Glucose,Whole Blood 104 mg/dL (70-110)
--- NOTE | 2022-08-17 23:17 | ED ---
Overdose HPI - General Chief Complaint: Overdose Stated Complaint: Insulin Overdose Time Seen by Provider: 08/17/22 23:14 Source: patient, RN notes reviewed, old records reviewed Mode of arrival: ambulatory Limitations: no limitations - History of Present Illness Initial Comments: This is a 27-year-old female the emergency department for evaluation. Today patient presents for evaluation regards to likely overdose on at home and some medication, patient was given tonight dose of insulin medication attempted to get lower blood sugar. Caregiver became concerned and called EMS MD Complaint: accidental overdose -: minutes(s) Intent: other (low blood glucose) How Overdose Was Discovered: called family/friend (accidental called EMS- caregivere) Treatments Prior to Arrival: none - Related Data Home Medications Medication Instructions Recorded Confirmed Docusate [Colace] 100 mg PO DAILY 02/19/16 08/18/22 Lacosamide [Vimpat] 200 mg PO BID 02/19/16 08/18/22 Levothyroxine Sodium [Synthroid] 175 mcg PO DAILY 05/11/16 08/18/22 risperiDONE [RisperDAL] 2 mg PO BID 05/11/16 08/18/22 Aspirin EC [Ecotrin Low Dose] 81 mg PO DAILY 08/17/16 08/18/22 Hydrocortisone 2.5 mg PO DAILY 11/27/20 08/18/22 Hydrocortisone 5 mg PO HS 11/27/20 08/18/22 Insulin Glargine,Hum.rec.anlog 15 unit SQ HS 11/27/20 08/18/22 [Lantus Solostar Pen] Metoprolol Tartrate [Lopressor] 25 mg PO BID 11/27/20 08/18/22 lamoTRIgine [LaMICtal] 200 mg PO BID 11/27/20 08/18/22 metFORMIN HCL [Glucophage] 500 mg PO DAILY 11/27/20 08/18/22 Dulaglutide [Trulicity] 1.5 mg SQ TH 08/18/22 08/18/22 Empagliflozin [Jardiance] 25 mg PO HS 08/18/22 08/18/22 Insulin Lispro [humaLOG Kwikpen] See Protocol SQ AC-TID 08/18/22 08/18/22 Norelgestromin/Ethin.estradiol 1 patch TRANSDERM MOELLER 08/18/22 08/18/22 [Xulane 150-35 Mcg/Day Patch] Topiramate [Topamax] 50 mg PO BID 08/18/22 08/18/22 metFORMIN HCL 1,000 mg PO HS 08/18/22 08/18/22 Previous Rx's Medication Instructions Recorded EPINEPHrine [Epipen 2-Meek] 0.3 mg IM ONCE PRN #1 pack 07/03/18 Allergies Allergy/AdvReac Type Severity Reaction Status Date / Time cefuroxime Allergy Rash/Hives Verified 08/18/22 07:24 latex Allergy Swelling Verified 08/18/22 07:24 nifedipine [From Procardia] Allergy Unknown Verified 08/18/22 07:24 shrimp Allergy Anaphylaxis Verified 08/18/22 07:24 gabapentin AdvReac altered Verified 08/18/22 07:24 mental status hydrocodone [From [place]] AdvReac "stays Verified 08/18/22 07:24 awake for days" hydromorphone [From Dilaudid] AdvReac Chest Pain Verified 08/18/22 07:24 levetiracetam [From Keppra] AdvReac Toxic Verified 08/18/22 07:24 Levels metoclopramide [From Reglan] AdvReac Grand Mal Verified 08/18/22 07:24 Seizure pentamidine isethionate AdvReac Severe Pain Verified 08/18/22 07:24 pregabalin [From Lyrica] AdvReac Altered Verified 08/18/22 07:24 Mental Status Review of Systems ROS Statement: Those systems with pertinent positive or pertinent negative responses have been documented in the HPI. ROS Other: All systems not noted in ROS Statement are negative. Past Medical History Past Medical History: Asthma, Cancer, Chest Pain / Angina, Diabetes Mellitus, Fibromyalgia, GERD/Reflux, Hypertension, Seizure Disorder, Supraventricular Tachycardia (SVT), Thyroid Disorder Additional Past Medical History / Comment(s): glioblastomamultiform stage 4-dx. 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 uses cane, Dysautonomia; Raynauds; Blindness right eye; Hearing loss; Pulmonary Fibrosis, neuropathy, panhypopitituarism- addisons disease, osteoporosis History of Any Multi-Drug Resistant Organisms: None Reported Past Surgical History: Adenoidectomy, Appendectomy, Cholecystectomy, Tonsillectomy Additional Past Surgical History / Comment(s): craniotomy x2-right frontal lobe removed, broviac and portacath with subsequent removal of both. bone marrow transplant, Past Anesthesia/Blood Transfusion Reactions: Family History of Problems w/ Anesthesia, Motion Sickness, Postoperative Nausea & Vomiting (PONV) Additional Past Anesthesia/Blood Transfusion Reaction / Comment(s): mother PONV Past Psychological History: ADD/ADHD, Anxiety Smoking Status: Never smoker Past Alcohol Use History: None Reported Past Drug Use History: None Reported - Past Family History Mother Family Medical History: No Reported History Sister(s) Additional Family Medical History / Comment(s): raynauds Grandfather Family Medical History: Diabetes Mellitus Uncles Family Medical History: Diabetes Mellitus General Exam Limitations: no limitations General appearance: alert, in no apparent distress Head exam: Present: atraumatic, normocephalic, normal inspection Eye exam: Present: normal appearance, PERRL, EOMI. Absent: scleral icterus, conjunctival injection, periorbital swelling ENT exam: Present: normal exam, mucous membranes moist Neck exam: Present: normal inspection. Absent: tenderness, meningismus, lymphadenopathy Respiratory exam: Present: normal lung sounds bilaterally. Absent: respiratory distress, wheezes, rales, rhonchi, stridor Cardiovascular Exam: Present: normal rhythm, tachycardia, normal heart sounds. Absent: systolic murmur, diastolic murmur, rubs, gallop, clicks GI/Abdominal exam: Present: soft, normal bowel sounds. Absent: distended, tenderness, guarding, rebound, rigid Extremities exam: Present: normal inspection, full ROM, normal capillary refill. Absent: tenderness, pedal edema, joint swelling, calf tenderness Back exam: Present: normal inspection Neurological exam: Present: alert, oriented X3, CN II-XII intact Psychiatric exam: Present: normal affect, normal mood Skin exam: Present: warm, dry, intact, normal color. Absent: rash Course Vital Signs 08/17/22 08/18/22 23:02 02:38 Temperature 98 F Pulse Rate 103 H 107 H Respiratory 20 15 Rate Blood Pressure 132/86 117/70 O2 Sat by Pulse 100 99 Oximetry - Reevaluation(s) Reevaluation #1: 08/17/22 23:15 medical records reviewed Reevaluation #2: 08/18/22 00:52 patient blood sugar remains elevated throughout ER stay, no hypoglycemia Reevaluation #3: 08/18/22 00:53 patient informed results questions answered Patient is recurrent low blood sugar here in the emergency department Patient For observation of blood sugar Reevaluation #4: 08/17/22 23:15 Was pt. sent in by a medical professional or institution? @ -no Did you speak to anyone other than the patient for history? @ -no Did you review nursing and triage notes? @ -agree Were old charts reviewed? @ -no Differential Diagnosis? @ -prior EKG interpreted by me (3pts min.)? @ -no X-rays interpreted by me (1pt min.)? @ -no CT interpreted by me (1pt min.)? @ -no U/S interpreted by me (1pt. min.)? @ -no What testing was considered but not performed? (CT, X-rays, U/S, labs)? Why? @ -no What meds were considered but not given? Why? @ -no Did you discuss the management of the patient with other professionals? @ -no Did you reconcile home meds? @ -no Was smoking cessation discussed for >3mins.? @ -no Was critical care preformed (if so, how long)? @ -no Were there social determinants of health that impacted care today? How? (Homelessness, low income, unemployed, alcoholism, drug addiction, transportatio n, low edu. Level, literacy, decrease access to med. care, [facility], rehab)? @ -no Was there de-escalation of care discussed even if they declined? (Discuss DNR or withdrawal of care, Hospice)? @ -no What co-morbidities impacted this encounter? (DM, HTN, Smoking, COPD, CAD, Cancer, CVA, Hep., AIDS, mental health diagnosis, sleep apnea, morbid obesity)? @ -none Was patient admitted / discharged? @ -27 female to the ER for evaluation, patient presents today for evaluation of accidental insulin injection, patient is been trying to get a lower A1c giving herself increased amounts of insulin with significant insulin drop at home. Patient's blood sugar remained normalized throughout ER stay, patient feels well but blood sugar keeps dropping and patient will be admitted for observation Admitted Undiagnosed new problem with uncertain prognosis? @ -no Drug Therapy requiring intensive monitoring for toxicity (Heparin, Nitro, Insulin, Cardizem)? @ -no Were any procedures done? @ -no Diagnosis/symptom? @ -Hyperglycemia recurrent, overdose Acute, or Chronic, or Acute on Chronic? @ -no Uncomplicated (without systemic symptoms) or Complicated (systemic symptoms)? @ -uncomplicated Side effects of treatment? @ -no Exacerbation, Progression, or Severe Exacerbation] @ -no Poses a threat to life or bodily function? @ -Yes hypoglycemia can be deadly - Consultations Consultation #1: Spoke with sound who agrees to admit this patient Medical Decision Making - Medical Decision Making 27 female to the ER for evaluation, patient presents today for evaluation of accidental insulin injection, patient is been trying to get a lower A1c giving herself increased amounts of insulin with significant insulin drop at home. Patient's blood sugar remained normalized throughout ER stay, patient feels well but blood sugar keeps dropping and patient will be admitted for observation - Lab Data Result diagrams: 08/17/22 23:16 08/17/22 23:16 Lab Results 08/17/22 08/17/22 08/17/22 Range/Units 23:06 23:13 23:16 WBC 11.8 H (3.8-10.6) k/uL RBC 4.23 (3.80-5.40) m/uL Hgb 12.1 (11.4-16.0) gm/dL Hct 37.8 (34.0-46.0) % MCV 89.5 (80.0-100.0) fL MCH 28.7 (25.0-35.0) pg MCHC 32.1 (31.0-37.0) g/dL RDW 13.9 (11.5-15.5) % Plt Count 293 (150-450) k/uL MPV 9.6 Neutrophils % 49 % Lymphocytes % 44 % Monocytes % 4 % Eosinophils % 1 % Basophils % 0 % Neutrophils # 5.8 (1.3-7.7) k/uL Lymphocytes # 5.2 H (1.0-4.8) k/uL Monocytes # 0.4 (0-1.0) k/uL Eosinophils # 0.2 (0-0.7) k/uL Basophils # 0.0 (0-0.2) k/uL Manual Slide Review Performed Sodium (137-145) mmol/L Potassium (3.5-5.1) mmol/L Chloride (98-107) mmol/L Carbon Dioxide (22-30) mmol/L Anion Gap mmol/L BUN (7-17) mg/dL Creatinine (0.52-1.04) mg/dL Est GFR (CKD-EPI)AfAm (>60 ml/min/1.73 sqM) Est GFR (CKD-EPI)NonAf (>60 ml/min/1.73 sqM) Glucose (74-99) mg/dL POC Glucose (mg/dL) 146 H 104 (70-110) mg/dL POC Glu Community Support Specialist CORY ElmaErmaey Edgar Hopper Calcium (8.4-10.2) mg/dL Phosphorus (2.5-4.5) mg/dL Magnesium (1.6-2.3) mg/dL Total Bilirubin (0.2-1.3) mg/dL AST (14-36) U/L ALT (4-34) U/L Alkaline Phosphatase (38-126) U/L Total Protein (6.3-8.2) g/dL Albumin (3.5-5.0) g/dL 08/17/22 08/17/22 08/18/22 Range/Units 23:16 23:45 00:54 WBC (3.8-10.6) k/uL RBC (3.80-5.40) m/uL Hgb (11.4-16.0) gm/dL Hct (34.0-46.0) % MCV (80.0-100.0) fL MCH (25.0-35.0) pg MCHC (31.0-37.0) g/dL RDW (11.5-15.5) % Plt Count (150-450) k/uL MPV Neutrophils % % Lymphocytes % % Monocytes % % Eosinophils % % Basophils % % Neutrophils # (1.3-7.7) k/uL Lymphocytes # (1.0-4.8) k/uL Monocytes # (0-1.0) k/uL Eosinophils # (0-0.7) k/uL Basophils # (0-0.2) k/uL Manual Slide Review Sodium 142 (137-145) mmol/L Potassium 3.5 (3.5-5.1) mmol/L Chloride 104 (98-107) mmol/L Carbon Dioxide 26 (22-30) mmol/L Anion Gap 12 mmol/L BUN 22 H (7-17) mg/dL Creatinine 1.34 H (0.52-1.04) mg/dL Est GFR (CKD-EPI)AfAm 63 (>60 ml/min/1.73 sqM) Est GFR (CKD-EPI)NonAf 54 (>60 ml/min/1.73 sqM) Glucose 107 H (74-99) mg/dL POC Glucose (mg/dL) 278 H 92 (70-110) mg/dL POC Glu Community Support Specialist Edgar Mari Brittany Calcium 9.9 (8.4-10.2) mg/dL Phosphorus 4.1 (2.5-4.5) mg/dL Magnesium 2.1 (1.6-2.3) mg/dL Total Bilirubin 0.3 (0.2-1.3) mg/dL AST 29 (14-36) U/L ALT 43 H (4-34) U/L Alkaline Phosphatase 100 (38-126) U/L Total Protein 7.7 (6.3-8.2) g/dL Albumin 4.5 (3.5-5.0) g/dL Disposition Clinical Impression: Accidental drug overdose, Hypoglycemia Narrative: Insulin OverDose Accidental Disposition: ADMITTED IP TO THIS HOSP Condition: Good Is patient prescribed a controlled substance at d/c from ED?: No Time of Disposition: 00:50
[2022-08-17] MEDS ORDERED: DEXTROSE 5%-0.45% NACL 1,000 ML IV ONE (23:30)
[2022-08-17] MEDS ORDERED: DEXTROSE 50% SYRINGE 50 ML IVP STA (23:30)
[2022-08-17 23:46] LABS: Glucose,Whole Blood 278 mg/dL (70-110)
[2022-08-18 00:56] LABS: Glucose,Whole Blood 92 mg/dL (70-110)
[2022-08-18] MEDS ORDERED: NALOXONE 0.4 MG/ML 1 ML VIAL IV PRN (01:14)
[2022-08-18 01:47] LABS: Glucose,Whole Blood 107 mg/dL (70-110)
[2022-08-18 02:06] LABS: ALT 43 U/L (4-34); AST 29 U/L (14-36); African American GFR (CKD) 63 (>60 ml/min/1.73 sqM); Albumin 4.5 g/dL (3.5-5.0); Alkaline Phosphatase 100 U/L (38-126); Anion Gap 12 mmol/L; Blood Urea Nitrogen 22 mg/dL (7-17); Calcium 9.9 mg/dL (8.4-10.2); Carbon Dioxide 26 mmol/L (22-30); Chloride 104 mmol/L (98-107); Glucose 107 mg/dL (74-99); Magnesium 2.1 mg/dL (1.6-2.3); Non-African American GFR(CKD) 54 (>60 ml/min/1.73 sqM); Phosphorus 4.1 mg/dL (2.5-4.5); Potassium 3.5 mmol/L (3.5-5.1); Sodium 142 mmol/L (137-145); Total Bilirubin 0.3 mg/dL (0.2-1.3); Total Protein 7.7 g/dL (6.3-8.2)
[2022-08-18 02:30] LABS: Basophils % (A) 0 %; Eosinophils # (A) 0.2 k/uL (0-0.7); Eosinophils % (A) 1 %; HCT 37.8 % (34.0-46.0); HGB 12.1 gm/dL (11.4-16.0); Lymphocytes # (A) 5.2 k/uL (1.0-4.8); Lymphocytes % (A) 44 %; MCH 28.7 pg (25.0-35.0); MCHC 32.1 g/dL (31.0-37.0); MCV 89.5 fL (80.0-100.0); Mean Platelet Volume 9.6; Monocytes # (A) 0.4 k/uL (0-1.0); Monocytes % (A) 4 %; Neutrophils # (A) 5.8 k/uL (1.3-7.7); Neutrophils % (A) 49 %; Platelet Count 293 k/uL (150-450); RBC 4.23 m/uL (3.80-5.40); RDW 13.9 % (11.5-15.5); WBC 11.8 k/uL (3.8-10.6)
[2022-08-18] MEDS ORDERED: ALBUTEROL NEBULIZED 2.5 MG/3 ML INHALATION PRN (03:15)
[2022-08-18 03:21] LABS: Glucose,Whole Blood 134 mg/dL (70-110)
[2022-08-18 03:35] VITALS: PULSE 106
[2022-08-18] MEDS ORDERED: ALBUTEROL HFA INHALER INHALATION PRN (03:48)
--- NOTE | 2022-08-18 03:48 | P.HPIM ---
History of Present Illness H&P Date: 08/18/22 Chief Complaint: insulin overdose 27 year old female with absent seizures, DM patient accidentally took a large dose of rapid acting insulin normally she takes 15 units she this time accidentally took 60 units the mother recognized that immediately and decided to bring her to the hospital for evaluation before patient started having any symptoms. Patient is also on oral hypoglycemic agents. Patient has history of absence seizures and she received medications for that, she also has history of mild persistent asthma. 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 Patient has history of glioblastoma stage IV status post radiation chemotherapy she is in remission status post frontal lobectomy. Patient mother is her guardian and she is responsible for all her medications and care. Review of systems Pertinent positives as noted in HPI. All other systems were reviewed and are negative Physical exam Constitutional: No acute distress, conversant, Eyes: Anicteric sclerae, moist conjunctiva, Pupils equal round reactive to light ENMT: NC/AT Oropharynx clear, no erythema, or exudates Neck: Supple, no masses, or JVD No carotid bruits No thyromegaly Lungs: Clear to auscultation Clear to percussion Normal respiratory effort, no accessory muscle use Cardiovascular: Heart regular in rate and rhythm, No murmurs, gallops, or rubs No peripheral edema Abdominal: Soft Nontender, no guarding, rebound or rigidity Abdomen moving with respiration Normoactive bowel sounds No hepatomegaly, No splenomegaly No palpable mass No abdominal wall hernia noted Skin: Normal temperature, tone, texture, turgor Extremities: No digital cyanosis No clubbing Pedal pulses intact and symmetrical Radial pulses intact and symmetrical No calf tenderness Psychiatric: Alert and oriented to person, place Neuro Muscles Strength 5/5 in all 4 extremities Sensation to light touch grossly present throughout Cranial nerves II-XII grossly intact Lymphatics: no palpable cervical or supraclavicular lymph nodes Past Medical History Past Medical History: Asthma, Cancer, Chest Pain / Angina, Diabetes Mellitus, Fibromyalgia, GERD/Reflux, Hypertension, Seizure Disorder, Supraventricular Tachycardia (SVT), Thyroid Disorder Additional Past Medical History / Comment(s): glioblastomamultiform stage 4-dx. 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 uses cane, Dysautonomia; Raynauds; Blindness right eye; Hearing loss; Pulmonary Fibrosis, neuropathy, panhypopitituarism- addisons disease, osteoporosis History of Any Multi-Drug Resistant Organisms: None Reported Past Surgical History: Adenoidectomy, Appendectomy, Cholecystectomy, Tonsillectomy Additional Past Surgical History / Comment(s): craniotomy x2-right frontal lobe removed, broviac and portacath with subsequent removal of both. bone marrow transplant, Past Anesthesia/Blood Transfusion Reactions: Family History of Problems w/ Anesthesia, Motion Sickness, Postoperative Nausea & Vomiting (PONV) Additional Past Anesthesia/Blood Transfusion Reaction / Comment(s): mother PONV Past Psychological History: ADD/ADHD, Anxiety Smoking Status: Never smoker Past Alcohol Use History: None Reported Past Drug Use History: None Reported - Past Family History Mother Family Medical History: No Reported History Sister(s) Additional Family Medical History / Comment(s): raynauds Grandfather Family Medical History: Diabetes Mellitus Uncles Family Medical History: Diabetes Mellitus Medications and Allergies Home Medications Medication Instructions Recorded Confirmed Type Albuterol Nebulized [Ventolin 2.5 mg INHALATION RT-QID PRN 02/19/16 12/29/20 History Nebulized] Docusate [Colace] 100 mg PO BID 02/19/16 12/29/20 History Fluticasone Nasal [place] [Flonase 1 spray EA NOSTRIL BID 02/19/16 12/29/20 History Nasal Mobile] Ipratropium Nebulized [Atrovent 0.5 mg INHALATION RT-QID PRN 02/19/16 12/29/20 History Nebulized 0.2 MG/ML] LORazepam [Ativan] 1 mg PO TID PRN 02/19/16 12/29/20 History Lacosamide [Vimpat] 200 mg PO BID 02/19/16 12/29/20 History Loratadine [Claritin] 10 mg PO DAILY 02/19/16 12/29/20 History Methylphenidate HCl [Concerta] 54 mg PO DAILY 02/19/16 12/29/20 History Omeprazole [PriLOSEC] 20 mg PO HS 02/19/16 12/29/20 History clonazePAM [Clonazepam] 2 mg PO BID PRN 02/19/16 12/29/20 History Ibuprofen [Motrin] 800 mg PO Q8HR PRN #20 tab 05/11/16 12/29/20 Rx Ipratropium [place] [Atrovent Hfa] 2 puff INHALATION RT-QID PRN 05/11/16 12/29/20 History Levothyroxine Sodium [Synthroid] 175 mcg PO DAILY 05/11/16 12/29/20 History risperiDONE [RisperDAL] 2 mg PO BID 05/11/16 12/29/20 History Aspirin EC [Ecotrin Low Dose] 81 mg PO DAILY 08/17/16 12/29/20 History Somatropin [Norditropin Flexpro] 0.5 mg SQ HS 08/17/16 12/29/20 History EPINEPHrine [Epipen 2-Meek] 0.3 mg IM ONCE PRN #1 pack 07/03/18 12/29/20 Rx Mometasone/Formoterol [Dulera 200 2 puff INHALATION RT-DAILY 06/28/19 12/29/20 History Mcg-5 Mcg Inhaler] Glucagon [Baqsimi] 1 spray NASAL DIRECTED PRN 11/27/20 12/29/20 History Hydrocortisone 2.5 mg PO HS 11/27/20 12/29/20 History Hydrocortisone 5 mg PO DAILY 11/27/20 12/29/20 History Insulin Glargine,Hum.rec.anlog 15 unit SQ HS 11/27/20 12/29/20 History [Lantus Solostar Pen] Liraglutide [Victoza 3-Meek] 1.8 mg SQ DAILY 11/27/20 12/29/20 History Metoprolol Tartrate [Lopressor] 25 mg PO TID 11/27/20 12/29/20 History lamoTRIgine [LaMICtal] 200 mg PO BID 11/27/20 12/29/20 History metFORMIN HCL [Glucophage] 500 mg PO DAILY 11/27/20 12/29/20 History Albuterol Sulfate [Proair Hfa] 2 puff INHALATION RT-Q6H PRN 12/29/20 12/29/20 History Norelgestromin/Ethin.estradiol 1 patch TRANSDERM FR 12/29/20 12/29/20 History [Zafemy 150-35 Mcg/Day Patch] Liraglutide [Victoza 3-Meek] 1.8 mg SQ DAILY 12/30/20 12/30/20 History Amoxicillin 875 mg PO Q12HR 10 Days #20 tablet 01/01/21 Rx Fluconazole [Diflucan] 100 mg PO DAILY 10 Days #10 tab 01/01/21 Rx Allergies Allergy/AdvReac Type Severity Reaction Status Date / Time cefuroxime Allergy Rash/Hives Verified 08/17/22 23:06 latex Allergy Swelling Verified 08/17/22 23:06 nifedipine [From Procardia] Allergy Unknown Verified 08/17/22 23:06 shrimp Allergy Anaphylaxis Verified 08/17/22 23:06 acetaminophen [From [place]] AdvReac Rash/Hives Verified 08/17/22 23:06 gabapentin AdvReac altered Verified 08/17/22 23:06 mental status hydrocodone [From [place]] AdvReac Unknown Verified 08/17/22 23:06 hydromorphone [From Dilaudid] AdvReac Chest Pain Verified 08/17/22 23:06 levetiracetam [From Keppra] AdvReac Toxic Verified 08/17/22 23:06 Levels metoclopramide [From Reglan] AdvReac Grand Mal Verified 08/17/22 23:06 Seizure pentamidine isethionate AdvReac Severe Pain Verified 08/17/22 23:06 pregabalin [From Lyrica] AdvReac Altered Verified 08/17/22 23:06 Mental Status Physical Exam Vitals: Vital Signs Temp Pulse Resp BP Pulse Ox 08/18/22 02:38 107 H 15 117/70 99 08/17/22 23:02 98 F 103 H 20 132/86 100 Intake and Output 08/17/22 08/17/22 08/18/22 14:59 22:59 06:59 Other: Weight 86.183 kg Results CBC & Chem 7: 08/17/22 23:16 08/17/22 23:16 Labs: Abnormal Lab Results - Last 24 Hours (Table) 08/17/22 08/17/22 08/17/22 Range/Units 23:06 23:16 23:16 WBC 11.8 H (3.8-10.6) k/uL BUN 22 H (7-17) mg/dL Creatinine 1.34 H (0.52-1.04) mg/dL Glucose 107 H (74-99) mg/dL POC Glucose (mg/dL) 146 H (70-110) mg/dL ALT 43 H (4-34) U/L 08/17/22 Range/Units 23:45 WBC (3.8-10.6) k/uL BUN (7-17) mg/dL Creatinine (0.52-1.04) mg/dL Glucose (74-99) mg/dL POC Glucose (mg/dL) 278 H (70-110) mg/dL ALT (4-34) U/L Assessment and Plan Assessment: 27-year-old female with developmental delays, seizure disorder, comes in due to accidental insulin overdosing I discussed the case with the ED doctor patient blood sugar dropping to the low 90s despite being on D5 water, I accepted the admission for insulin overdosing resulting in hypoglycemia for close monitoring with anticipated length of stay less than 2 midnights Hypoglycemia secondary to accidental insulin overdose Continue to monitor blood sugar closely D5 percent water with 0.45 saline at 85 mL per hour Monitor blood sugar closely Hold insulin and oral hypoglycemic agents Acute kidney injury Hold nephrotoxic meds Continue with IV fluid hydrations as above Monitor urine output BUN 22 creatinine 1.34 Monitor renal function Chronic conditions Terrell disease Resume hydrocortisone Absence seizures Resume Vimpat Seizure precautions Mild persistent asthma Resume inhalers Otherwise blood work unremarkable hemoglobin 12.1, white BC slightly elevated 11.8 Full code DVT prophylaxis heparin subcu 3 times a day
[2022-08-18] MEDS ORDERED: LEVOTHYROXINE 88 MCG TAB PO SCH (06:30)
[2022-08-18 06:33] LABS: Glucose,Whole Blood 153 mg/dL (70-110)
[2022-08-18] MEDS ORDERED: SYMBICORT 160-4.5 MCG INHALER INHALATION SCH (08:00)
[2022-08-18] MEDS ORDERED: HEPARIN SODIUM,PORCINE/PF 5,000 UNIT/0.5 ML SYRINGE SQ SCH (08:00)
[2022-08-18 08:02] VITALS: BP 114/73; RESP 16; TEMP 98.4
[2022-08-18] MEDS ORDERED: ASPIRIN 81 MG PO SCH (09:00)
[2022-08-18] MEDS ORDERED: METOPROLOL TARTRATE 25 MG TAB PO SCH (09:00)
[2022-08-18] MEDS ORDERED: HYDROCORTISONE 10 MG TAB PO SCH ×2 (09:00→21:00)
[2022-08-18] MEDS ORDERED: lamoTRIgine 100 MG TAB PO SCH (09:00)
[2022-08-18] MEDS ORDERED: LACOSAMIDE 50 MG TABLET PO SCH (09:00)
--- NOTE | 2022-08-18 17:03 | P.DS ---
Providers Date of admission: 08/18/22 01:14 Expected date of discharge: 08/18/22 Attending physician: Titus Cohen MD Primary care physician: Oumar Ramírez Hospital Course: Hypoglycemia secondary to accidental insulin overdose Acute kidney injury Terrell disease Absence seizures Mild persistent asthma 27-year-old female with developmental delays, seizure disorder, comes in due to accidental insulin overdosing I discussed the case with the ED doctor patient blood sugar dropping to the low 90s despite being on D5 water, who was admitted for insulin overdosing resulting in hypoglycemia. Patient's sugars were monitored and remained greater than 100 more than 9 hours after taking short acting insulin dose at home. Patient was discharged with PCP follow-up after sugars remained stable, no changes were made to her home medication. However, she was extensively counseled on the importance of accurate insulin administration. 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 Gen: awake, alert HEENT: normocephalic, atraumatic, good hearing acuity, moist mucous membranes Resp: good air exchange, breathing comfortably with no accessory muscle use CVS: good distal perfusion x 4, GI: soft, NTTP, ND : no SPT, no CVAT, wagner catheter not present MSK: no pitting edema, no clubbing Neuro: non-focal, moving all extremities Psych: cooperative, euthymic mood Patient Condition at Discharge: Good Plan - Discharge Summary New Discharge Prescriptions: Continue Lacosamide [Vimpat] 200 mg PO BID Docusate [Colace] 100 mg PO DAILY Levothyroxine Sodium [Synthroid] 175 mcg PO DAILY risperiDONE [RisperDAL] 2 mg PO BID Aspirin EC [Ecotrin Low Dose] 81 mg PO DAILY EPINEPHrine [Epipen 2-Meek] 0.3 mg IM ONCE PRN #1 pack PRN Reason: Anaphylaxis Insulin Glargine,Hum.rec.anlog [Lantus Solostar Pen] 15 unit SQ HS Metoprolol Tartrate [Lopressor] 25 mg PO BID Hydrocortisone 2.5 mg PO DAILY metFORMIN HCL [Glucophage] 500 mg PO DAILY Insulin Lispro [humaLOG Kwikpen] See Protocol SQ AC-TID Empagliflozin [Jardiance] 25 mg PO HS lamoTRIgine [LaMICtal] 200 mg PO BID Hydrocortisone 5 mg PO HS metFORMIN HCL 1,000 mg PO HS Topiramate [Topamax] 50 mg PO BID Norelgestromin/Ethin.estradiol [Xulane 150-35 Mcg/Day Patch] 1 patch 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 DERM 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 Dulaglutide [Trulicity] 1.5 mg SQ TH Discharge Medication List Docusate [Colace] 100 mg PO DAILY 02/19/16 [History] Lacosamide [Vimpat] 200 mg PO BID 02/19/16 [History] Levothyroxine Sodium [Synthroid] 175 mcg PO DAILY 05/11/16 [History] risperiDONE [RisperDAL] 2 mg PO BID 05/11/16 [History] Aspirin EC [Ecotrin Low Dose] 81 mg PO DAILY 08/17/16 [History] EPINEPHrine [Epipen 2-Meek] 0.3 mg IM ONCE PRN #1 pack 07/03/18 [Rx] Hydrocortisone 2.5 mg PO DAILY 11/27/20 [History] Hydrocortisone 5 mg PO HS 11/27/20 [History] Insulin Glargine,Hum.rec.anlog [Lantus Solostar Pen] 15 unit SQ HS 11/27/20 [History] Metoprolol Tartrate [Lopressor] 25 mg PO BID 11/27/20 [History] lamoTRIgine [LaMICtal] 200 mg PO BID 11/27/20 [History] metFORMIN HCL [Glucophage] 500 mg PO DAILY 11/27/20 [History] Dulaglutide [Trulicity] 1.5 mg SQ TH 08/18/22 [History] Empagliflozin [Jardiance] 25 mg PO HS 08/18/22 [History] Insulin Lispro [humaLOG Kwikpen] See Protocol SQ AC-TID 08/18/22 [History] Norelgestromin/Ethin.estradiol [Xulane 150-35 Mcg/Day Patch] 1 patch TRANSDERM MOELLER 08/18/22 [History] Topiramate [Topamax] 50 mg PO BID 08/18/22 [History] metFORMIN HCL 1,000 mg PO HS 08/18/22 [History] Follow up Appointment(s)/Referral(s): Oumar Ramírez MD [Primary Care Provider] - 1-2 days Patient Instructions/Handouts: Seizure/Epilepsy Discharge Instructions & Follow-Up, Hypoglycemia in a Person with Diabetes (DC), What is Insulin (ED), How to Give an Insulin Injection (ED) Activity/Diet/Wound Care/Special Instructions: FOLLOW UP DIRECTED, SOONER FOR WORSENING SYMPTOMS, PROBLEMS OR CONCERNS. Discharge Disposition: HOME SELF-CARE
== END 2022-08-18 12:58 | disposition home or self-care (01) ==
LOC: EC 23:01 → 6NMEDSUR 08-18 01:14
PROVIDERS: ADMIT Internal Medicine; ATTEND Internal Medicine
DX: T38.3X1A Poisoning by insulin and oral hypoglycemic [antidiabetic] drugs, accidental (unintentional), initial encounter (principal); N17.9 Acute kidney failure, unspecified; E11.649 Type 2 diabetes mellitus with hypoglycemia without coma; G40.A09 Absence epileptic syndrome, not intractable, without status epilepticus; K21.9 Gastro-esophageal reflux disease without esophagitis; I10 Essential (primary) hypertension; G40.909 Epilepsy, unspecified, not intractable, without status epilepticus; M79.7 Fibromyalgia; I73.00 Raynaud's syndrome without gangrene; M81.0 Age-related osteoporosis without current pathological fracture; H91.90 Unspecified hearing loss, unspecified ear; J84.10 Pulmonary fibrosis, unspecified; H54.61 Unqualified visual loss, right eye, normal vision left eye; E27.1 Primary adrenocortical insufficiency; G90.1 Familial dysautonomia [Riley-Day]; E11.40 Type 2 diabetes mellitus with diabetic neuropathy, unspecified; J45.30 Mild persistent asthma, uncomplicated; F41.9 Anxiety disorder, unspecified; F90.9 Attention-deficit hyperactivity disorder, unspecified type; Z79.899 Other long term (current) drug therapy; Z79.890 Hormone replacement therapy; Z79.82 Long term (current) use of aspirin; Z79.4 Long term (current) use of insulin; Z90.49 Acquired absence of other specified parts of digestive tract; Z83.3 Family history of diabetes mellitus; Z79.84 Long term (current) use of oral hypoglycemic drugs; Z91.040 Latex allergy status; Z88.8 Allergy status to other drugs, medicaments and biological substances; Z85.841 Personal history of malignant neoplasm of brain; Z92.3 Personal history of irradiation; Z92.21 Personal history of antineoplastic chemotherapy; Y92.009 Unspecified place in unspecified non-institutional (private) residence as the place of occurrence of the external cause; Z79.51 Long term (current) use of inhaled steroids
CPT/HCPCS: 96372; 96374; 99284; 36415 ×2; 94640; 80053; 83735; 84100; 85025; G0378; J1644

== ENCOUNTER → 2022-12-23 | Outpatient (CLI) | payer OTHER ==
--- NOTE | 2022-12-23 08:38 | US ---
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 Indirect Doppler criteria was utilized. FINDINGS: EXAM MEASUREMENTS: RIGHT: Peak Systolic Velocity (PSV) cm/sec ----- Right CCA: 108 ----- Right ICA: 74.7 ----- Right ECA: 110 ICA/CCA ratio: 0.69 RIGHT: End Diastole cm/sec ----- Right CCA: 26.6 ----- Right ICA: 27.3 ----- Right ECA: 19.5 LEFT: Peak Systolic Velocity (PSV) cm/sec ----- Left CCA: 125 ----- Left ICA: 98.7 ----- Left ECA: 93.5 ICA/CCA ratio: 0.79 LEFT: End Diastole cm/sec ----- Left CCA: 37.0 ----- Left ICA: 37.0 ----- Left ECA: 9.7 VERTEBRALS (direction of flow): Right Vertebral: Antegrade Left Vertebral: Antegrade Rhythm: Normal INKER MACHINE NOTES: Mild plaque bilateral bifurcations. no evidence of increased velocities IMPRESSION: Less than 50% stenosis of the bilateral carotid bifurcations. Criteria for Assigning % of Stenosis / Diameter reduction (Estimation based on the indirect measurements of the internal carotid artery velocities (ICA PSV). 1. Normal (no stenosis)=ICA PSV < 125 cm/s: ratio < 2.0: ICA EDV<40 cm/s. 2. Less than 50% stenosis=ICA PSV < 125 cm/s: ratio < 2.0: ICA EDV<40 cm/s. 3. 50 to 69% stenosis=ICA PSV of 125 to 230 cm/s: ration 2.0 ? 4.0: ICA EDV 40-100 cm/s. 4. Greater than 70% stenosis to near occlusion= ICA PSV > 230 cm/s: ratio > 4.0: ICA EDV > 100 cm/s. 5. Near occlusion= ICA PSV velocities may be low or undetectable: variable ratio and ICA EDV. 6. Total occlusion=unable to detect flow.
--- NOTE | 2022-12-25 09:31 | MR ---
EXAMINATION TYPE: MR brain wo/w con DATE OF EXAM: 12/23/2022 COMPARISON: MRI 08/20/2021 HISTORY: 27-year-old female Dizziness, headaches, visual changes. Hx brain tumor/resection x2. TECHNIQUE: Multiplanar, multisequence images of the brain and brainstem were acquired before and aft er administration of 9 mL IV Gadavist. Diffusion weighted imaging is performed. FINDINGS: No evidence for acute infarction, midline shift, herniation, effacement of basal cisterns, or extra-a xial fluid collection. Redemonstrated large resection cavity of the right frontal lobe. There is some bright white matter change extending into the anterior pole of the right frontal lobe n ear and along the posterior and posterior superior margin of the resection cavity but no correspondin g enhancement in these locations. Focus of bright white matter change left paramedian frontal lobe ad jacent to the frontal horn of the left lateral ventricle remains unchanged. No abnormal enhancement seen elsewhere. Dural venous sinuses are patent. Similar ex vacuo enlargement frontal horn right lateral ventricle due to the volume loss. Midline structures demonstrate normal morphology. The craniocervical junction is normal. Post contrast images demonstrate no evidence of pathologic enhancement. Dural venous sinuses are pat ent. The visualized sinuses are clear and the globes are intact. IMPRESSION: 1. Redemonstrated large resection cavity involving the right frontal lobe. Similar mild ex vacuo enla rgement right lateral ventricle due to volume loss. 2. No abnormal enhancement to suggest recurrent tumor. The bright white matter change extending into the adjacent anterior pole of the right temporal lobe and along the posterior and posterosuperior mar gin of the resection cavity remains unchanged. .
== END | disposition home or self-care (01) ==
LOC: RADUSWWP 06:48
PROVIDERS: ATTEND Family Medicine
DX: C71.9 Malignant neoplasm of brain, unspecified (principal); I65.23 Occlusion and stenosis of bilateral carotid arteries; H53.9 Unspecified visual disturbance
CPT/HCPCS: 93880; 70553; A9585

== ENCOUNTER 2023-10-25 16:06 | Emergency (ER) | payer OTHER ==
--- NOTE | 2023-10-25 16:11 | ED ---
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 Patient's mother provides vast majority of history as she states the patient tends to repeat herself, patient defers to her mother to provide history. Patient mother states the patient has had headaches and generalized weakness ongoing for the last year. Patient describes them as tension across the top of her head. This headache started 3 days ago, patient states it is similar to prior headaches. Has, gradually worsened. Has had associated nausea and vomiting. Patient has not been checking her blood sugar regularly and has been off of insulin for some time however on Wednesday checked her blood sugar was 525. Today patient continued to be hyperglycemic so patient's mother brought her to the hospital. No fevers, when asked visual field changes patient states that lights appear brighter however the otherwise no visual field changes, no new numbness or weakness, patient has chronic left-sided weakness from prior stroke. Patient denies abdominal pain, chest pain, difficulty in breathing, new numbness or weakness, dysuria, hematuria, vaginal discharge, abnormal vaginal bleeding, black or bloody stools or diarrhea. - Related Data Home Medications Medication Instructions Recorded Confirmed Docusate [Colace] 100 mg PO BID 02/19/16 10/25/23 Lacosamide [Vimpat] 200 mg PO BID 02/19/16 10/25/23 Aspirin EC [Ecotrin Low Dose] 81 mg PO DAILY 08/17/16 10/25/23 Hydrocortisone 2.5 mg PO HS 11/27/20 10/25/23 Hydrocortisone 5 mg PO DAILY 11/27/20 10/25/23 Insulin Glargine,Hum.rec.anlog 10 unit SQ HS 11/27/20 10/25/23 [Lantus Solostar Pen] lamoTRIgine [LaMICtal] 200 mg PO BID 11/27/20 10/25/23 Dulaglutide [Trulicity] 1.5 mg SQ TH 08/18/22 10/25/23 Insulin Lispro [humaLOG Kwikpen] See Protocol SQ AC-TID 08/18/22 10/25/23 Norelgestromin/Ethin.estradiol 1 patch TRANSDERM DIRECTED 08/18/22 10/25/23 [Xulane 150-35 Mcg/Day Patch] metFORMIN HCL 500 mg PO HS 08/18/22 10/25/23 Acetaminophen Tab [Tylenol Tab] 1,000 mg PO Q6HR PRN 10/25/23 10/25/23 Hydrocortisone 2.5 mg PO HS PRN 10/25/23 10/25/23 Hydrocortisone 5 mg PO DAILY PRN 10/25/23 10/25/23 Latanoprost [Latanoprost 0.005%] 1 drop BOTH EYES HS 10/25/23 10/25/23 Levothyroxine Sodium [Synthroid] 137 mcg PO DAILY 10/25/23 10/25/23 Loratadine [Claritin] 10 mg PO DAILY 10/25/23 10/25/23 Metoprolol Tartrate [Lopressor] 50 mg PO BID 10/25/23 10/25/23 Topiramate 50 mg PO BID 10/25/23 10/25/23 diphenhydrAMINE HCL [Benadryl] 25 mg PO Q6H PRN 10/25/23 10/25/23 Previous Rx's Medication Instructions Recorded EPINEPHrine [Epipen 2-Meek] 0.3 mg IM ONCE PRN #1 pack 07/03/18 Cephalexin [Keflex] 500 mg PO Q12HR 7 Days #14 cap 10/25/23 diazePAM [Valium] 5 mg PO Q8HR PRN 3 Days #9 tab 10/25/23 Allergies Allergy/AdvReac Type Severity Reaction Status Date / Time cefuroxime Allergy Rash/Hives Verified 10/25/23 19:28 latex Allergy Swelling Verified 10/25/23 19:28 nifedipine [From Procardia] Allergy Unknown Verified 10/25/23 19:28 shrimp Allergy Anaphylaxis Verified 10/25/23 19:28 gabapentin AdvReac altered Verified 10/25/23 19:28 mental status hydrocodone [From [place]] AdvReac "stays Verified 10/25/23 19:28 awake for days" levetiracetam [From Keppra] AdvReac Toxic Verified 10/25/23 19:28 Levels metoclopramide [From Reglan] AdvReac [place] Verified 10/25/23 19:28 Seizure pentamidine isethionate AdvReac Severe Pain Verified 10/25/23 19:28 pregabalin [From Lyrica] AdvReac Altered Verified 10/25/23 19:28 Mental Status Review of Systems ROS Statement: Those systems with pertinent positive or pertinent negative responses have been documented in the HPI. Past Medical History Past Medical History: Asthma, Cancer, Chest Pain / Angina, Diabetes Mellitus, Fibromyalgia, GERD/Reflux, Hypertension, Seizure Disorder, Supraventricular Tachycardia (SVT), Thyroid Disorder Additional Past Medical History / Comment(s): glioblastomamultiform stage 4-dx. 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 uses cane, Dysautonomia; Raynauds; Blindness right eye; Hearing loss; Pulmonary Fibrosis, neuropathy, panhypopitituarism- addisons disease, osteoporosis History of Any Multi-Drug Resistant Organisms: None Reported Past Surgical History: Adenoidectomy, Appendectomy, Cholecystectomy, Tonsi llectomy Additional Past Surgical History / Comment(s): craniotomy x2-right frontal lobe removed, broviac and portacath with subsequent removal of both. bone marrow transplant, Past Anesthesia/Blood Transfusion Reactions: Family History of Problems w/ Anesthesia, Motion Sickness, Postoperative Nausea & Vomiting (PONV) Additional Past Anesthesia/Blood Transfusion Reaction / Comment(s): mother PONV Past Psychological History: ADD/ADHD, Anxiety Smoking Status: Never smoker Past Alcohol Use History: None Reported Past Drug Use History: None Reported - Past Family History Mother Family Medical History: No Reported History Sister(s) Additional Family Medical History / Comment(s): raynauds Grandfather Family Medical History: Diabetes Mellitus Uncles Family Medical History: Diabetes Mellitus General Exam - General Exam Comments Initial Comments: PE: CONSTITUTIONAL: No apparent distress, nontoxic though chronically ill-appearing SKIN: Warm, dry, no jaundice, hives or petechiae EYES: Pupils are equally round, extraocular movements intact, fatigable horizontal nystagmus, clear conjunctiva, non-icteric sclera HENT: Normocephalic, atraumatic, dry mucus membranes, oropharynx clear without exudates NECK: , Full range of motion, normal appearance, no meningeal signs, no neck stiffness, no midline tenderness to palpation PULMONARY: Clear to auscultation without wheezes, rhonchi, or rales, normal excursion, no accessory muscle use and no stridor CARDIOVASCULAR: Regular rate, rhythm, normal S1 and S2. No appreciated murmurs, rubs or gallops. Strong radial pulses with intact distal perfusion. No lower extremity edema GASTROINTESTINAL: Soft, non-tender, non-distended, no palpable masses, no rebound or guarding. No hepatosplenomegaly, patient giggles during exam GENITOURINARY: MUSCULOSKELETAL: Extremities have no gross deformity, no edema, redness, or swelling. No calf swelling. NEUROLOGIC:_a/o x 3, GCS 15, speech and mentation are baseline she is able to converse, is somewhat repetitive however patient's mother states this is baseline. Moves all extremities x 4, right upper and right lower extremity without motor or sensory deficit, mild weakness in the left upper extremities, 3-5 strength, 4-5 strength in the left lower extremity, patient and mother state this is baseline for the patient, otherwise no facial droop, no facial numbness, extraocular movements intact, vision in all 4 visual simmons intact, clear speech, PSYCHIATRIC:_normal mood and affect, thought process is clear and linear Course Vital Signs 10/25/23 10/25/23 10/25/23 16:09 18:09 21:52 Temperature 99.6 F 97.4 F L Pulse Rate 82 68 68 Respiratory 16 20 17 Rate Blood Pressure 123/86 110/88 125/73 O2 Sat by Pulse 97 98 Oximetry - Reevaluation(s) Reevaluation #1: Reviewed CT, I see evidence of active hemorrhage, when compared to MRI performed in December 2022 I see no obvious changes 10/25/23 17:55 EKG Findings - EKG Comments: EKG Findings:: Sinus rhythm, rate 77 bpm, normal intervals, no prolonged QTc, normal axis, no ST elevation or depression, no arrhythmia, no delta waves or Brugada pattern Medical Decision Making - Medical Decision Making Was pt. sent in by a medical professional or institution (, PA, NATIONAL INSURANCE OFFICER, urgent care, hospital, or senior care...) When possible be specific @ -[No] Did you speak to anyone other than the patient for history (EMS, parent, family, police, friend...)? What history was obtained from this source @ -Patient's mother assisted in providing history Did you review nursing and triage notes (agree or disagree)? Why? @ -[I reviewed and agree with nursing and triage notes] with exception of comment regarding type 1 diabetes, patient's mother is unsure what type of diabetes the patient has, she is not insulin-dependent currently and it was adult onset I suspect more likely diabetes mellitus type 2 Were old charts reviewed (outside hosp., previous admission, EMS record, old EKG, old radiological studies, urgent care reports/EKG's, senior care records)? Report findings @ -Patient last visited did the emergency department in October 2022 for back pain, was ultimately discharged home. MRI brain performed in December 2022 showed no acute process Differential Diagnosis (chest pain, altered mental status, abdominal pain women, abdominal pain men, vaginal bleeding, weakness, fever, dyspnea, syncope, headache, dizziness, GI bleed, back pain, seizure, CVA, palpatations, mental health, musculoskeletal)? @ -Differential diagnosis remains broad however top considerations include return of the blastoma/brain cancer, DKA, HHS, infection, electrolyte imbalance, Hypoglycemia, shock, sepsis, hyponatremia, anemia, infection, adverse medicine reaction, this is not meant to be an all-inclusive list. EKG interpreted by me (3pts min.). @ -[As above] X-rays interpreted by me (1pt min.). @Chest x-ray shows no consolidations, cardiomegaly or effusions CT interpreted by me (1pt min.). @ -I see no evidence of mass effect or hemorrhage, no changes compared to MRI performed December of last year U/S interpreted by me (1pt. min.). @ -[None done] What testing was considered but not performed or refused? (CT, X-rays, U/S, labs)? Why? @ -[None] What meds were considered but not given or refused? Why? @ -I did consider giving the patient Reglan however patient has allergic reaction to Reglan, additionally considered administering Compazine however patient's headache improved after Valium Did you discuss the management of the patient with other professionals (professionals i.e. , PA, NATIONAL INSURANCE OFFICER, lab, RT, psych nurse, social science manager, art sales consultant, teacher, maritime officer, employment evaluator/case manager)? Give summary @ -[No] Was smoking cessation discussed for >3mins.? @ -[No] Was critical care preformed (if so, how long)? @ -[No] Were there social determinants of health that impacted care today? How? (Homelessness, low income, unemployed, alcoholism, drug addiction, transportation, low edu. Level, literacy, decrease access to med. care, [facility] [facility], rehab)? @ -[No] Was there de-escalation of care discussed even if they declined (Discuss DNR or withdrawal of care, Hospice)? @ -[No] What co-morbidities impacted this encounter? (DM, HTN, Smoking, COPD, CAD, Cancer, CVA, ARF, Chemo, Hep., AIDS, mental health diagnosis, sleep apnea, morbid obesity)? @ -History prior glioblastoma, diabetes, D Hanis's disease Was patient admitted / discharged? Hospital course, mention meds given and route, prescriptions, significant lab abnormalities, going to OR and other pertinent info. @ -[hospital course] Patient 28-year-old female with complex medical history including glioblastoma status postresection 23 years ago, seizure disorder, diabetes, hypothyroidism, D Hanis disease presenting today for generalized weakness, headache x 3 days nausea, vomiting and hyperglycemia. On assessment patient is well-appearing and in no acute distress. Mucous membranes are dry, lungs clear to auscultation bilaterally, normal S1-S2 on cardiac exam, lungs clear to auscultation, abdomen soft and nontender, patient does giggling during abdominal exam, left upper extremity held in decerebrate positioning however patient does have 3/5 strength in this extremity, baseline for the patient. 4-5 strength in the left lower extremity, again baseline for the patient no new focal neurologic deficits. Patient given Toradol for headache without improvement, discussed Compazine versus Valium with patient's mother, given patient has had a poor reaction to Reglan in the past I feel Valium would be a safer option given patient's history of seizures. Valium ordered. Creatinine slightly elevated, AST ALT slightly elevated, otherwise labs are reassuring. Urinalysis does show UTI. Updated patient and mother to these findings. Will give patient Keflex. On my reassessment patient's headache has improved and she is sleeping comfortably. I discussed option for admission for further monitoring/observation versus discharge home. Patient's mother states that she would prefer discharge home and she does not want the patient getting sick with anything from the hospital. Patient is getting this weekend. Patient mother will follow-up with the patient's neurologist. I feel this is reasonable given chronicity of complaints and improvement of symptoms. In my medical judgment there is currently no evidence of an immediate life- threatening or surgical condition. Discharge is therefore indicated at this time. [Discharge treatment instructions, follow up instructions, and appropriate emergency department return precautions were discussed with the patient and/or medical decision maker. Patient and/or medical decision maker expressed understanding of and agreed with the treatment plan, follow up instructions, and emergency department return precaution. All patient's and/or medical decision maker's questions were answered.] Undiagnosed new problem with uncertain prognosis? @ -[No] Drug Therapy requiring intensive monitoring for toxicity (Heparin, Nitro, Insulin, Cardizem)? @ -[No] Were any procedures done? @ -[No] Diagnosis/symptom? @ -Headache, nausea and vomiting Acute, or Chronic, or Acute on Chronic? @ -Acute on chronic Uncomplicated (without systemic symptoms) or Complicated (systemic symptoms)? @ -[Complicated Side effects of treatment? @ -[No] Exacerbation, Progression, or Severe Exacerbation? @ -[No] Poses a threat to life or bodily function? How? (Chest pain, [place], [place], pneumonia, PE, COPD, DKA, ARF, appy, cholecystitis, CVA, Diverticulitis, Homicidal, Suicidal, threat to staff... and all critical care pts) @Unlikely - Lab Data Result diagrams: 10/25/23 17:33 10/25/23 17:33 Lab Results 10/25/23 10/25/23 10/25/23 Range/Units 17:33 17:33 17:33 WBC 10.9 H (3.8-10.6) k/uL RBC 3.93 (3.80-5.40) m/uL Hgb 12.1 (11.4-16.0) gm/dL Hct 36.6 (34.0-46.0) % MCV 93.0 (80.0-100.0) fL MCH 30.9 (25.0-35.0) pg MCHC 33.2 (31.0-37.0) g/dL RDW 13.4 (11.5-15.5) % Plt Count 266 (150-450) k/uL MPV 7.8 Neutrophils % 46 % Lymphocytes % 47 % Monocytes % 3 % Eosinophils % 1 % Basophils % 1 % Neutrophils # 5.0 (1.3-7.7) k/uL Lymphocytes # 5.1 H (1.0-4.8) k/uL Monocytes # 0.4 (0-1.0) k/uL Eosinophils # 0.1 (0-0.7) k/uL Basophils # 0.1 (0-0.2) k/uL Manual Slide Review Performed RBC Morphology Normal PT 10.3 (10.0-12.5) sec INR 0.9 (<1.2) APTT 22.9 (22.0-30.0) sec VBG pH (7.31-7.41) VBG pCO2 (37-51) mmHg VBG HCO3 (24-28) mmol/L Sodium 142 (137-145) mmol/L Potassium 3.9 (3.5-5.1) mmol/L Chloride 108 H (98-107) mmol/L Carbon Dioxide 23 (22-30) mmol/L Anion Gap 11 mmol/L BUN 14 (7-17) mg/dL Creatinine 1.40 H (0.52-1.04) mg/dL Est GFR (CKD-EPI)AfAm 59 (>60 ml/min/1.73 sqM) Est GFR (CKD-EPI)NonAf 51 (>60 ml/min/1.73 sqM) Glucose 131 H (74-99) mg/dL POC Glucose (mg/dL) (70-110) mg/dL POC Glu Players Assistant ID Plasma Lactic Acid Prashant (0.7-2.0) mmol/L Calcium 10.1 (8.4-10.2) mg/dL Ionized Calcium Marisela 5.2 (4.5-5.3) mg/dL Phosphorus 3.1 (2.5-4.5) mg/dL Magnesium 2.1 (1.6-2.3) mg/dL Total Bilirubin 0.5 (0.2-1.3) mg/dL AST 75 H (14-36) U/L ALT 71 H (4-34) U/L Alkaline Phosphatase 109 (38-126) U/L Troponin I (0.000-0.034) ng/mL Total Protein 7.7 (6.3-8.2) g/dL Albumin 4.7 (3.5-5.0) g/dL Amylase 43 (30-110) U/L Lipase 92 (23-300) U/L TSH (0.465-4.680) mIU/L Free T4 (0.78-2.19) ng/dL HCG, Qual Not Detected Urine Color Urine Appearance (Clear) Urine pH (5.0-8.0) Ur Specific [place] (1.001-1.035) Urine Protein (Negative) Urine Glucose (UA) (Negative) Urine Ketones (Negative) Urine Blood (Negative) Urine Nitrite (Negative) Urine Bilirubin (Negative) Urine Urobilinogen (<2.0) mg/dL Ur Leukocyte Esterase (Negative) Urine RBC (0-5) /hpf Urine WBC (0-5) /hpf Ur Squamous Epith Cells (0-4) /hpf Urine Bacteria (None) /hpf Urine Mucus (None) /hpf Acetone, Qual Negative (Negative) Influenza Type A (PCR) (Not Detectd) Influenza Type B (PCR) (Not Detectd) RSV (PCR) (Not Detectd) SARS-CoV-2 (PCR) (Not Detectd) 10/25/23 10/25/23 10/25/23 Range/Units 17:33 17:33 17:33 WBC (3.8-10.6) k/uL RBC (3.80-5.40) m/uL Hgb (11.4-16.0) gm/dL Hct (34.0-46.0) % MCV (80.0-100.0) fL MCH (25.0-35.0) pg MCHC (31.0-37.0) g/dL RDW (11.5-15.5) % Plt Count (150-450) k/uL MPV Neutrophils % % Lymphocytes % % Monocytes % % Eosinophils % % Basophils % % Neutrophils # (1.3-7.7) k/uL Lymphocytes # (1.0-4.8) k/uL Monocytes # (0-1.0) k/uL Eosinophils # (0-0.7) k/uL Basophils # (0-0.2) k/uL Manual Slide Review RBC Morphology PT (10.0-12.5) sec INR (<1.2) APTT (22.0-30.0) sec VBG pH 7.33 (7.31-7.41) VBG pCO2 48 (37-51) mmHg VBG HCO3 25 (24-28) mmol/L Sodium (137-145) mmol/L Potassium (3.5-5.1) mmol/L Chloride (98-107) mmol/L Carbon Dioxide (22-30) mmol/L Anion Gap mmol/L BUN (7-17) mg/dL Creatinine (0.52-1.04) mg/dL Est GFR (CKD-EPI)AfAm (>60 ml/min/1.73 sqM) Est GFR (CKD-EPI)NonAf (>60 ml/min/1.73 sqM) Glucose (74-99) mg/dL POC Glucose (mg/dL) (70-110) mg/dL POC Glu Players Assistant ID Plasma Lactic Acid Prashant 1.3 (0.7-2.0) mmol/L Calcium (8.4-10.2) mg/dL Ionized Calcium Marisela (4.5-5.3) mg/dL Phosphorus (2.5-4.5) mg/dL Magnesium (1.6-2.3) mg/dL Total Bilirubin (0.2-1.3) mg/dL AST (14-36) U/L ALT (4-34) U/L Alkaline Phosphatase (38-126) U/L Troponin I (0.000-0.034) ng/mL Total Protein (6.3-8.2) g/dL Albumin (3.5-5.0) g/dL Amylase (30-110) U/L Lipase (23-300) U/L TSH (0.465-4.680) mIU/L Free T4 (0.78-2.19) ng/dL HCG, Qual Urine Color Urine Appearance (Clear) Urine pH (5.0-8.0) Ur Specific [place] (1.001-1.035) Urine Protein (Negative) Urine Glucose (UA) (Negative) Urine Ketones (Negative) Urine Blood (Negative) Urine Nitrite (Negative) Urine Bilirubin (Negative) Urine Urobilinogen (<2.0) mg/dL Ur Leukocyte Esterase (Negative) Urine RBC (0-5) /hpf Urine WBC (0-5) /hpf Ur Squamous Epith Cells (0-4) /hpf Urine Bacteria (None) /hpf Urine Mucus (None) /hpf Acetone, Qual (Negative) Influenza Type A (PCR) Not Detected (Not Detectd) Influenza Type B (PCR) Not Detected (Not Detectd) RSV (PCR) Not Detected (Not Detectd) SARS-CoV-2 (PCR) Not Detected (Not Detectd) 10/25/23 10/25/23 10/25/23 Range/Units 18:08 18:30 20:00 WBC (3.8-10.6) k/uL RBC (3.80-5.40) m/uL Hgb (11.4-16.0) gm/dL Hct (34.0-46.0) % MCV (80.0-100.0) fL MCH (25.0-35.0) pg MCHC (31.0-37.0) g/dL RDW (11.5-15.5) % Plt Count (150-450) k/uL MPV Neutrophils % % Lymphocytes % % Monocytes % % Eosinophils % % Basophils % % Neutrophils # (1.3-7.7) k/uL Lymphocytes # (1.0-4.8) k/uL Monocytes # (0-1.0) k/uL Eosinophils # (0-0.7) k/uL Basophils # (0-0.2) k/uL Manual Slide Review RBC Morphology PT (10.0-12.5) sec INR (<1.2) APTT (22.0-30.0) sec VBG pH (7.31-7.41) VBG pCO2 (37-51) mmHg VBG HCO3 (24-28) mmol/L Sodium (137-145) mmol/L Potassium (3.5-5.1) mmol/L Chloride (98-107) mmol/L Carbon Dioxide (22-30) mmol/L Anion Gap mmol/L BUN (7-17) mg/dL Creatinine (0.52-1.04) mg/dL Est GFR (CKD-EPI)AfAm (>60 ml/min/1.73 sqM) Est GFR (CKD-EPI)NonAf (>60 ml/min/1.73 sqM) Glucose (74-99) mg/dL POC Glucose (mg/dL) 129 H (70-110) mg/dL POC Glu Players Assistant ID Radha Mccormack Plasma Lactic Acid Prashant (0.7-2.0) mmol/L Calcium (8.4-10.2) mg/dL Ionized Calcium Marisela (4.5-5.3) mg/dL Phosphorus (2.5-4.5) mg/dL Magnesium (1.6-2.3) mg/dL Total Bilirubin (0.2-1.3) mg/dL AST (14-36) U/L ALT (4-34) U/L Alkaline Phosphatase (38-126) U/L Troponin I (0.000-0.034) ng/mL Total Protein (6.3-8.2) g/dL Albumin (3.5-5.0) g/dL Amylase (30-110) U/L Lipase (23-300) U/L TSH <0.015 L (0.465-4.680) mIU/L Free T4 2.10 (0.78-2.19) ng/dL HCG, Qual Urine Color Yellow Urine Appearance Cloudy H (Clear) Urine pH 6.5 (5.0-8.0) Ur Specific [place] 1.038 H (1.001-1.035) Urine Protein 1+ H (Negative) Urine Glucose (UA) 4+ H (Negative) Urine Ketones 1+ H (Negative) Urine Blood Negative (Negative) Urine Nitrite Positive H (Negative) Urine Bilirubin Negative (Negative) Urine Urobilinogen <2.0 (<2.0) mg/dL Ur Leukocyte Esterase Large H (Negative) Urine RBC 2 (0-5) /hpf Urine WBC 22 H (0-5) /hpf Ur Squamous Epith Cells 3 (0-4) /hpf Urine Bacteria Rare H (None) /hpf Urine Mucus Occasional H (None) /hpf Acetone, Qual (Negative) Influenza Type A (PCR) (Not Detectd) Influenza Type B (PCR) (Not Detectd) RSV (PCR) (Not Detectd) SARS-CoV-2 (PCR) (Not Detectd) 10/25/23 Range/Units 20:00 WBC (3.8-10.6) k/uL RBC (3.80-5.40) m/uL Hgb (11.4-16.0) gm/dL Hct (34.0-46.0) % MCV (80.0-100.0) fL MCH (25.0-35.0) pg MCHC (31.0-37.0) g/dL RDW (11.5-15.5) % Plt Count (150-450) k/uL MPV Neutrophils % % Lymphocytes % % Monocytes % % Eosinophils % % Basophils % % Neutrophils # (1.3-7.7) k/uL Lymphocytes # (1.0-4.8) k/uL Monocytes # (0-1.0) k/uL Eosinophils # (0-0.7) k/uL Basophils # (0-0.2) k/uL Manual Slide Review RBC Morphology PT (10.0-12.5) sec INR (<1.2) APTT (22.0-30.0) sec VBG pH (7.31-7.41) VBG pCO2 (37-51) mmHg VBG HCO3 (24-28) mmol/L Sodium (137-145) mmol/L Potassium (3.5-5.1) mmol/L Chloride (98-107) mmol/L Carbon Dioxide (22-30) mmol/L Anion Gap mmol/L BUN (7-17) mg/dL Creatinine (0.52-1.04) mg/dL Est GFR (CKD-EPI)AfAm (>60 ml/min/1.73 sqM) Est GFR (CKD-EPI)NonAf (>60 ml/min/1.73 sqM) Glucose (74-99) mg/dL POC Glucose (mg/dL) (70-110) mg/dL POC Glu Players Assistant ID Plasma Lactic Acid Prashant (0.7-2.0) mmol/L Calcium (8.4-10.2) mg/dL Ionized Calcium Marisela (4.5-5.3) mg/dL Phosphorus (2.5-4.5) mg/dL Magnesium (1.6-2.3) mg/dL Total Bilirubin (0.2-1.3) mg/dL AST (14-36) U/L ALT (4-34) U/L Alkaline Phosphatase (38-126) U/L Troponin I <0.012 (0.000-0.034) ng/mL Total Protein (6.3-8.2) g/dL Albumin (3.5-5.0) g/dL Amylase (30-110) U/L Lipase (23-300) U/L TSH (0.465-4.680) mIU/L Free T4 (0.78-2.19) ng/dL HCG, Qual Urine Color Urine Appearance (Clear) Urine pH (5.0-8.0) Ur Specific [place] (1.001-1.035) Urine Protein (Negative) Urine Glucose (UA) (Negative) Urine Ketones (Negative) Urine Blood (Negative) Urine Nitrite (Negative) Urine Bilirubin (Negative) Urine Urobilinogen (<2.0) mg/dL Ur Leukocyte Esterase (Negative) Urine RBC (0-5) /hpf Urine WBC (0-5) /hpf Ur Squamous Epith Cells (0-4) /hpf Urine Bacteria (None) /hpf Urine Mucus (None) /hpf Acetone, Qual (Negative) Influenza Type A (PCR) (Not Detectd) Influenza Type B (PCR) (Not Detectd) RSV (PCR) (Not Detectd) SARS-CoV-2 (PCR) (Not Detectd) Disposition Clinical Impression: Headache, Nausea and vomiting Disposition: HOME SELF-CARE Condition: Good Additional Instructions: Every disease is a spectrum and a small chance still exists that a serious condition could develop, for this reason, please monitor yourself closely for new, changing or worsening symptoms, symptoms that persist beyond an additional 48 hours, nausea and vomiting to the point of being unable to keep down fluids, sudden onset or severe headache that you have never had before, fever, inability to tolerate/keep down fluids or your medications, inability to follow up with outpatient providers as instructed and should you experience these symptoms or should you have any further concerns for your wellbeing please return to the ED or call 911 immediately. Please follow-up with your neurologist as soon as possible, preferably within the next week. PLEASE call your primary care physician as soon as possible to arrange / discuss plan for followup appointment. Appointment in the next 1-3 days is strongly encouraged if possible. PLEASE let us know here before you leave if there is anything further we can do to be of any assistance. Take care and feel Better! Prescriptions: Cephalexin [Keflex] 500 mg PO Q12HR 7 Days #14 cap diazePAM [Valium] 5 mg PO Q8HR PRN 3 Days #9 tab PRN Reason: Headache Is patient prescribed a controlled substance at d/c from ED?: Yes When asked, does pt state using other controlled substances?: No If prescribed controlled substance>3 days was MAPS reviewed?: Yes Referrals: Oumar Ramírez MD [Primary Care Provider] - 1-2 days Time of Disposition: 21:25
[2023-10-25] MEDS: SODIUM CHLORIDE 0.9% 1,000 ML IV STA (17:02)
[2023-10-25] MEDS: ACETAMINOPHEN TAB 500 MG TAB PO STA (17:16)
[2023-10-25] MEDS: ONDANSETRON 4 MG/2 ML VIAL IVP STA (17:21)
--- NOTE | 2023-10-25 18:00 | CT ---
EXAMINATION TYPE: CT brain wo con DATE OF EXAM: 10/25/2023 COMPARISON: 05/24/2022 INDICATION: headache history of brain tumor, seizures, weakness DLP: 1113.5 mGycm, Automated exposure control for dose reduction was used. CONTRAST: None CT of the brain is performed utilizing 3 mm thick sections through the posterior fossa and 3 mm thick sections through the remaining calvarium. Study is performed within 24 hours of arrival to the [facility]. No abnormal hyperdensity is present to suggest an acute intracranial hemorrhage. No mass lesion is evident. No acute infarcts are evident. There is a large old right frontal lobe postsurgical change. No recurr ent masses are identified. Study is without contrast. No mass effect is evident. There is some mild e x vacuo effect on the right anterior lateral ventricle.. Ventricles and sulci are appropriate for the patient age. Paranasal sinuses and mastoid air cells within the [id number] are clear. IMPRESSION: 1. Postsurgical right frontal lobe changes. No suspicious recurrent mass is identified. Findings jayne ear stable from comparison 2. No acute intracranial process. Follow up MRI can be performed as clinically indicated.
[2023-10-25 18:09] LABS: Glucose,Whole Blood 129 mg/dL (70-110)
[2023-10-25 18:14] VITALS: PULSE 68
[2023-10-25] MEDS: KETOROLAC 15 MG/ML 1 ML VIAL IVP STA (18:17)
[2023-10-25] MEDS: KETOROLAC 15 MG/ML 1 ML VIAL IM STA (18:34)
[2023-10-25 19:04] LABS: VBG PH 7.33 (7.31-7.41)
[2023-10-25 19:11] LABS: INR 0.9 (<1.2); Partial Thromboplastin Time 22.9 sec (22.0-30.0); Prothrombin Time 10.3 sec (10.0-12.5)
[2023-10-25 19:24] LABS: Appearance,Urine Cloudy (Clear); Bacteria,Urine Rare /hpf; Bilirubin,Urine Negative (Negative); Blood,Urine Negative (Negative); Color,Urine Yellow; Glucose,Urine (UA) 4+ (Negative); Ketones,Urine 1+ (Negative); Leukocyte Esterase,Urine Large (Negative); Mucus,Urine Occasional /hpf; Nitrite,Urine Positive (Negative); PH, Urine 6.5 (5.0-8.0); Protein,Urine 1+ (Negative); RBC,Urine 2 /hpf (0-5); Specific Gravity,Urine 1.038 (1.001-1.035); Squamous Epithelial Cell,Urine 3 /hpf (0-4); Urobilinogen,Urine <2.0 mg/dL (<2.0); WBC,Urine 22 /hpf (0-5)
[2023-10-25 19:27] LABS: Ionized Calcium 5.2 mg/dL (4.5-5.3)
[2023-10-25 19:28] LABS: Basophils # (A) 0.1 k/uL (0-0.2); Basophils % (A) 1 %; Eosinophils # (A) 0.1 k/uL (0-0.7); Eosinophils % (A) 1 %; HCT 36.6 % (34.0-46.0); HGB 12.1 gm/dL (11.4-16.0); Lymphocytes # (A) 5.1 k/uL (1.0-4.8); Lymphocytes % (A) 47 %; MCH 30.9 pg (25.0-35.0); MCHC 33.2 g/dL (31.0-37.0); Mean Platelet Volume 7.8; Monocytes # (A) 0.4 k/uL (0-1.0); Monocytes % (A) 3 %; Neutrophils % (A) 46 %; Platelet Count 266 k/uL (150-450); RBC 3.93 m/uL (3.80-5.40); RDW 13.4 % (11.5-15.5); WBC 10.9 k/uL (3.8-10.6)
[2023-10-25 19:40] LABS: ALT 71 U/L (4-34); AST 75 U/L (14-36); African American GFR (CKD) 59 (>60 ml/min/1.73 sqM); Albumin 4.7 g/dL (3.5-5.0); Alkaline Phosphatase 109 U/L (38-126); Amylase 43 U/L (30-110); Anion Gap 11 mmol/L; Blood Urea Nitrogen 14 mg/dL (7-17); Calcium 10.1 mg/dL (8.4-10.2); Carbon Dioxide 23 mmol/L (22-30); Chloride 108 mmol/L (98-107); Glucose 131 mg/dL (74-99); Lipase 92 U/L (23-300); Magnesium 2.1 mg/dL (1.6-2.3); Non-African American GFR(CKD) 51 (>60 ml/min/1.73 sqM); Phosphorus 3.1 mg/dL (2.5-4.5); Potassium 3.9 mmol/L (3.5-5.1); Sodium 142 mmol/L (137-145); Total Bilirubin 0.5 mg/dL (0.2-1.3); Total Protein 7.7 g/dL (6.3-8.2)
[2023-10-25 19:41] LABS: HCG,Qualitative Serum Not Detected
[2023-10-25 19:48] LABS: RBC Morphology Normal
[2023-10-25] MEDS: diazePAM 5 MG TAB PO STA (20:50)
--- NOTE | 2023-10-25 20:55 | XR ---
EXAMINATION TYPE: XR chest 2V DATE OF EXAM: 10/25/2023 COMPARISON: 09/20/2019 INDICATION: Nausea vomiting TECHNIQUE: Frontal and lateral views of the chest are obtained. FINDINGS: The heart size is normal. The pulmonary vasculature is normal. The lungs are clear. Degree of inspiration is somewhat limited. IMPRESSION: 1. No acute pulmonary process.
[2023-10-25 21:59] VITALS: BP 125/73; RESP 17; TEMP 97.4
[2023-10-25] MEDS: CEPHALEXIN 500 MG CAP PO STA (21:59)
== END 2023-10-25 22:24 | disposition home or self-care (01) ==
LOC: EC 16:06
DX: R53.1 Weakness (principal); R11.2 Nausea with vomiting, unspecified; E11.65 Type 2 diabetes mellitus with hyperglycemia
CPT/HCPCS: 36415; 93005; 84439; 80053; 84443; 82330; 82150; 82803; 82009; 83605; 83690; 83735; 84100; 84484; 85025; 85610; 85730; 81001; 84703; 87086; 87077; 87186; 87636; 71046; 70450; 99285; 96374; 96372; 96361; J2405; J1885